=== PATIENT | male | born 1955 | race Caucasian/White ===

== ENCOUNTER 2017-09-16 12:45 | Emergency (ER) | payer BC, OTHER ==
[2017-09-16] MEDS ORDERED: IBUPROFEN 800 MG TAB PO STA (13:01)
--- NOTE | 2017-09-16 13:27 | XR ---
EXAMINATION TYPE: XR shoulder complete LT DATE OF EXAM: 09/16/2017 CLINICAL HISTORY: pain COMPARISON: NONE TECHNIQUE: Three views of the left shoulder are obtained. FINDINGS: There is no acute fracture/dislocation evident. The acromioclavicular and glenohumeral rolanda int spaces appear moderately narrowed. The visualized ribs are intact and unremarkable. IMPRESSION: 1. There is no acute fracture or dislocation. ICD 10 NO FRACTURE, INITIAL EVALUATION
--- NOTE | 2017-09-16 13:31 | XR ---
EXAMINATION TYPE: XR lumbar spine 2 or 3V DATE OF EXAM: 09/16/2017 CLINICAL HISTORY: pain TECHNIQUE: Three views of the lumbar spine are submitted. COMPARISON: None. FINDINGS: There are 5 lumbar type vertebral bodies identified. The lumbar spine shows satisfactory alignment w ithout evidence of acute fracture or dislocation. Vertebral body heights are within normal limits. Degenerative disc space narrowing mild in degree. Facet joint arthropathy noted. The overlying soft tissue appears unremarkable. IMPRESSION: No acute fracture or dislocation is seen in the lumbar spine. ICD 10 NO FRACTURE, INITIAL EVALUATION
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
[2017-09-16 14:39] VITALS: BP 177/83; PULSE 66; RESP 18; TEMP 98
== END 2017-09-16 14:38 | disposition home or self-care (01) ==
LOC: EC 12:45
DX: S39.012A Strain of muscle, fascia and tendon of lower back, initial encounter (principal); S46.912A Strain of unspecified muscle, fascia and tendon at shoulder and upper arm level, left arm, initial encounter; J44.9 Chronic obstructive pulmonary disease, unspecified; E11.9 Type 2 diabetes mellitus without complications; E78.5 Hyperlipidemia, unspecified; I10 Essential (primary) hypertension; N42.9 Disorder of prostate, unspecified; F17.200 Nicotine dependence, unspecified, uncomplicated; Z79.82 Long term (current) use of aspirin; Z79.84 Long term (current) use of oral hypoglycemic drugs; Z79.899 Other long term (current) drug therapy; V43.52XA Car driver injured in collision with other type car in traffic accident, initial encounter; Y92.410 Unspecified street and highway as the place of occurrence of the external cause
CPT/HCPCS: 72100; 99283

== ENCOUNTER 2023-01-07 10:40 | Day surgery (SDC) | payer BC, MEDICARE, OTHER ==
[2023-01-05 11:36] VITALS: BMI 29.1
[~2023-01-07 10:40] MED LIST: LACTATED RINGERS 1,000 ML IV SCH
[2023-01-07 11:12] LABS: Glucose,Whole Blood 133 mg/dL (70-110)
[2023-01-07 11:28] VITALS: TEMP 97.8
[2023-01-07] MEDS ORDERED: LIDOCAINE 1% INJ 10MG/ML (20 ML MDV) ONE (11:57)
[2023-01-07] MEDS ORDERED: PROPOFOL 10 MG/ML 20 ML VIAL IV ONE (11:57)
[2023-01-07] MEDS ORDERED: SODIUM CHLORIDE 0.9% 500 ML 500 ML IV ONE ×2 (12:05)
--- NOTE | 2023-01-07 12:15 | P.PCN ---
Date of Procedure: 01/07/23 Procedure(s) Performed: BRIEF HISTORY: Patient is a 67-year-old pleasant white male scheduled for an elective colonoscopy as a part of screening for colon cancer/positive cologuard PROCEDURE PERFORMED: Colonoscopy with biopsy and snare polypectomy. PREOPERATIVE DIAGNOSIS: screening for colon cancer/positive cologuard. IV sedation per Anesthesia. PROCEDURE: After informed consent was obtained, the patient, was brought into the endoscopy unit. IV sedation was administered by Anesthesia under continuous monitoring. Digital rectal examination was normal. Initially the Olympus CF-160 flexible video colonoscope was then inserted in the rectum, gradually advanced into the cecum without any difficulty. Careful examination was performed as the scope was gradually being withdrawn. Ileocecal valve and the appendiceal orifice were visualized and appeared normal. Prep was excellent. Mucosa of the cecum, ascending colon, transverse colon, appeared normal. The descending colon there was a 3 mm polyp that was removed by cold biopsy. In the sigmoid: There was a 1 cm polyp that was removed by snare polypectomy. Rest of the descending colon, sigmoid colon, and rectum appeared normal. Retroflexion was performed in the rectum and no lesions were seen. The patient tolerated the procedure well. IMPRESSION: 3 mm descending colon polyp status post-cold biopsy 1 cm; sigmoid polyp status post polypectomy RECOMMENDATIONS: Findings of this examination were discussed with the patient as his family. He was advised to follow with the biopsy results. If the biopsy reveals adenoma he can have a repeat colonoscopy in 3 years.
[2023-01-07 12:37] VITALS: RESP 16
[2023-01-07 12:38] VITALS: BP 155/75; PULSE 71
== END 2023-01-07 13:05 | disposition home or self-care (01) ==
LOC: ORWHC2ENDO 10:40
PROVIDERS: ATTEND Internal Medicine Gastroenterology
DX: Z12.11 Encounter for screening for malignant neoplasm of colon (principal); D12.4 Benign neoplasm of descending colon; I10 Essential (primary) hypertension; E78.5 Hyperlipidemia, unspecified; J45.909 Unspecified asthma, uncomplicated; F41.9 Anxiety disorder, unspecified; F32.A Depression, unspecified; F17.210 Nicotine dependence, cigarettes, uncomplicated; Z79.83 Long term (current) use of bisphosphonates; Z98.890 Other specified postprocedural states; Z79.899 Other long term (current) drug therapy
CPT/HCPCS: 45380; 45385; J2001; J2704; 88305

== ENCOUNTER 2023-09-28 16:29 | Inpatient (IN) | payer MEDICARE ==
--- NOTE | 2023-09-28 17:21 | ED ---
Weakness HPI - General Chief complaint: Weakness Stated complaint: weakness/shaking Time Seen by Provider: 09/28/23 17:19 Source: patient, RN notes reviewed Mode of arrival: wheelchair Limitations: no limitations - History of Present Illness Initial comments: 68-year-old male with history of COPD, type 2 diabetes mellitus, hyperlipidemia, and hypertension presenting to the ER with chief complaint of cough x 2 months. States over the past couple months he has had a constant, productive cough that has been worsening. States he becomes short of breath with minimal exertion lately. He also admits a 20 pound weight loss in the past 2 months. He has been to his PCP several times where they have taken chest x-rays and given him antibiotics for pneumonia, however patient states symptoms have not improved. He is a previous tobacco smoker, states he quit 1 month ago. Denies chest pain, fever, chills. - Related Data Home Medications Medication Instructions Recorded Confirmed Albuterol Sulfate [Proair Hfa] 2 puff INHALATION RT-Q4H PRN 08/04/14 09/28/23 Aspirin 81 mg PO DAILY 08/04/14 09/28/23 Doxazosin Mesylate [Cardura] 4 mg PO DAILY 08/04/14 09/28/23 Enalapril [Vasotec] 20 mg PO DAILY 08/04/14 09/28/23 Fenofibrate 160 mg PO DAILY 08/04/14 09/28/23 Finasteride [Proscar] 5 mg PO DAILY 08/04/14 09/28/23 Multivitamin [Men's Multi-Vitamin] 1 tab PO DAILY 08/04/14 09/28/23 metFORMIN HCL ER [Glucophage XR] 1,000 mg PO BID 08/04/14 09/28/23 buPROPion HCL [Wellbutrin XL] 300 mg PO DAILY 05/10/15 09/28/23 L.acidoph,Paracasei, B.lactis 1 cap PO DAILY 01/05/23 09/28/23 [Probiotic] amLODIPine [Norvasc] 5 mg PO DAILY 01/05/23 09/28/23 Dulaglutide [Trulicity] 1.5 mg SQ WE 09/28/23 09/28/23 Simvastatin [Zocor] 20 mg PO HS 09/28/23 09/28/23 glipiZIDE [glipiZIDE ER] 10 mg PO DAILY 09/28/23 09/28/23 traZODone HCL [Desyrel] 50 mg PO HS 09/28/23 09/28/23 Allergies Allergy/AdvReac Type Severity Reaction Status Date / Time No Known Allergies Allergy Verified 09/28/23 18:38 Review of Systems ROS Statement: Those systems with pertinent positive or pertinent negative responses have been documented in the HPI. ROS Other: All systems not noted in ROS Statement are negative. Past Medical History Past Medical History: Asthma, COPD, Diabetes Mellitus, GERD/Reflux, Hyperlipidemia, Hypertension, Prostate Disorder Additional Past Medical History / Comment(s): arthritis, History of Any Multi-Drug Resistant Organisms: None Reported Past Surgical History: Hernia Repair Past Anesthesia/Blood Transfusion Reactions: No Reported Reaction Additional Past Anesthesia/Blood Transfusion Reaction / Comment(s): no blood transfusion Past Psychological History: Anxiety, Depression Smoking Status: Former smoker Past Alcohol Use History: None Reported Past Drug Use History: Marijuana - Past Family History Mother Family Medical History: No Reported History General Exam Limitations: no limitations General appearance: alert, in no apparent distress Head exam: Present: atraumatic, normocephalic, normal inspection Eye exam: Present: normal appearance, PERRL, EOMI. Absent: scleral icterus, conjunctival injection, periorbital swelling ENT exam: Present: normal exam, mucous membranes moist Neck exam: Present: normal inspection. Absent: tenderness, meningismus, lymphadenopathy Respiratory exam: Present: wheezes (Wheezing in all lung raman bilaterally). Absent: normal lung sounds bilaterally, respiratory distress, rales, rhonchi, stridor, chest wall tenderness, accessory muscle use Cardiovascular Exam: Present: regular rate, normal rhythm, normal heart sounds. Absent: systolic murmur, diastolic murmur, rubs, gallop, clicks GI/Abdominal exam: Present: soft, normal bowel sounds. Absent: distended, tenderness, guarding, rebound, rigid Extremities exam: Present: normal inspection Back exam: Present: normal inspection Neurological exam: Present: alert, oriented X3, CN II-XII intact Psychiatric exam: Present: normal affect, normal mood Skin exam: Present: warm, dry, intact, normal color. Absent: rash Course Vital Signs 09/28/23 09/28/23 09/28/23 16:31 18:33 20:03 Temperature 97.1 F L Pulse Rate 96 80 80 Respiratory 18 16 18 Rate Blood Pressure 105/59 131/65 149/75 O2 Sat by Pulse 96 98 95 Oximetry 09/28/23 21:40 Temperature 97.7 F Pulse Rate 78 Respiratory 18 Rate Blood Pressure 138/76 O2 Sat by Pulse 94 L Oximetry EKG Findings - EKG Results: EKG: interpreted by ABDON (EKG reveals sinus arrhythmia with right bundle branch block, ventricular rate 80 bpm, GA 159, QRS 140, QT/QTc 414/450) Medical Decision Making - Medical Decision Making Was pt. sent in by a medical professional or institution (, PA, CUT OUT MARKER, urgent care, hospital, or [facility]...) When possible be specific @ -No Did you speak to anyone other than the patient for history (EMS, parent, family, police, friend...)? What history was obtained from this source @ -Patient's son supplemented history Did you review nursing and triage notes (agree or disagree)? Why? @ -I reviewed and agree with nursing and triage notes Were old charts reviewed (outside hosp., previous admission, EMS record, old EKG, old radiological studies, urgent care reports/EKG's, [facility] records)? Report findings @ -No old charts were reviewed Differential Diagnosis (chest pain, altered mental status, abdominal pain women, abdominal pain men, vaginal bleeding, weakness, fever, dyspnea, syncope, headache, dizziness, GI bleed, back pain, seizure, CVA, palpatations, mental health, musculoskeletal)? @ -Differential Weakness: Pneumonia, lung cancer, hypoglycemia, shock, sepsis, hyponatremia, anemia, infection, AL, ETOH, adverse medicine reaction, overdose, stroke, this is not meant to be an all-inclusive list. EKG interpreted by me (3pts min.). @ -As above X-rays interpreted by me (1pt min.). @ -Chest x-ray reveals right midlung consolidation, possibly representing underlying mass CT interpreted by me (1pt min.). @ -None done U/S interpreted by me (1pt. min.). @ -None done What testing was considered but not performed or refused? (CT, X-rays, U/S, labs)? Why? @ -None What meds were considered but not given or refused? Why? @ -None Did you discuss the management of the patient with other professionals (professionals i.e. , PA, CUT OUT MARKER, lab, RT, psych nurse, social media strategist, field crop farm worker, teacher, deputy probation officer, caseworker protective services)? Give summary @ -I spoke with Dr. Tenorio who accepts admission at this time for increasing shortness of breath with possible underlying lung mass with consultation to pulmonology services Was smoking cessation discussed for >3mins.? @ -No Was critical care preformed (if so, how long)? @ -No Were there social determinants of health that impacted care today? How? (Homelessness, low income, unemployed, alcoholism, drug addiction, transportation, low edu. Level, literacy, decrease access to med. care, [facility], rehab)? @ -No Was there de-escalation of care discussed even if they declined (Discuss DNR or withdrawal of care, Hospice)? DNR status @ -No What co-morbidities impacted this encounter? (DM, HTN, Smoking, COPD, CAD, Cancer, CVA, ARF, Chemo, Hep., AIDS, mental health diagnosis, sleep apnea, morbid obesity)? @ -None Was patient admitted / discharged? Hospital course, mention meds given and route, prescriptions, significant lab abnormalities, going to OR and other per tinent info. @ -Patient was admitted. Patient was seen and evaluated for worsening cough x 2 months with associated shortness of breath and weight loss. Patient is a former tobacco smoker. Vital signs are unremarkable, physical examination is remarkable for diffuse wheezing in all lung raman bilaterally. Lab work including CBC, CMP, troponin, and coags remarkable for INR 1.3, alkaline phospha te 407, mildly elevated liver enzymes, and bilirubin 2.9. Chest x-ray reveals right midlung consolidation possibly representing underlying mass. EKG reveals sinus arrhythmia with right bundle branch block. Discussed diagnosis of right midlung consolidation with patient. I spoke with Dr. Tenorio who accepts admission at this time for increasing shortness of breath with possible underlying lung mass with consultation to pulmonology services. Patient is agreeable to plan. Case was discussed with my ED attending Dr. Dowling. Patient discharged in stable condition. Undiagnosed new problem with uncertain prognosis? @ -No Drug Therapy requiring intensive monitoring for toxicity (Heparin, Nitro, Insulin, Cardizem)? @ -No Were any procedures done? @ -No Diagnosis/symptom? @ -Right lung consolidation, shortness of breath Acute, or Chronic, or Acute on Chronic? @ -Acute Uncomplicated (without systemic symptoms) or Complicated (systemic symptoms)? @ -Complicated Side effects of treatment? @ -No Exacerbation, Progression, or Severe Exacerbation? @ -No Poses a threat to life or bodily function? How? (Chest pain, USA, AL, pneumonia, PE, COPD, DKA, ARF, appy, cholecystitis, CVA, Diverticulitis, Homicidal, Suicidal, threat to staff... and all critical care pts) @ -Yes - Lab Data Result diagrams: 09/28/23 17:24 09/28/23 17: Lab Results 09/28/23 09/28/23 09/28/23 Range/Units 17:24 17:24 17:24 WBC 9.0 (3.8-10.6) k/uL RBC 4.25 L (4.30-5.90) m/uL Hgb 12.4 L (13.0-17.5) gm/dL Hct 37.9 L (39.0-53.0) % MCV 89.1 (80.0-100.0) fL MCH 29.2 (25.0-35.0) pg MCHC 32.7 (31.0-37.0) g/dL RDW 16.0 H (11.5-15.5) % Plt Count 287 (150-450) k/uL MPV 8.0 Neutrophils % 76 % Lymphocytes % 13 % Monocytes % 7 % Eosinophils % 1 % Basophils % 0 % Neutrophils # 6.9 (1.3-7.7) k/uL Lymphocytes # 1.2 (1.0-4.8) k/uL Monocytes # 0.6 (0-1.0) k/uL Eosinophils # 0.1 (0-0.7) k/uL Basophils # 0.0 (0-0.2) k/uL Hypochromasia Slight PT 13.7 H (10.0-12.5) sec INR 1.3 H (<1.2) APTT 23.2 (22.0-30.0) sec Sodium 136 L (137-145) mmol/L Potassium 4.3 (3.5-5.1) mmol/L Chloride 105 (98-107) mmol/L Carbon Dioxide 23 (22-30) mmol/L Anion Gap 8 mmol/L BUN 19 (9-20) mg/dL Creatinine 0.83 (0.66-1.25) mg/dL Est GFR (CKD-EPI)AfAm >90 (>60 ml/min/1.73 sqM) Est GFR (CKD-EPI)NonAf >90 (>60 ml/min/1.73 sqM) Glucose 137 H (74-99) mg/dL Calcium 9.1 (8.4-10.2) mg/dL Total Bilirubin 2.9 H (0.2-1.3) mg/dL AST 97 H (17-59) U/L ALT 81 H (4-49) U/L Alkaline Phosphatase 407 H (38-126) U/L Troponin I (0.000-0.034) ng/mL Total Protein 6.2 L (6.3-8.2) g/dL Albumin 3.3 L (3.5-5.0) g/dL 09/27/ Range/Units 17:24 WBC (3.8-10.6) k/uL RBC (4.30-5.90) m/uL Hgb (13.0-17.5) gm/dL Hct (39.0-53.0) % MCV (80.0-100.0) fL MCH (25.0-35.0) pg MCHC (31.0-37.0) g/dL RDW (11.5-15.5) % Plt Count (150-450) k/uL MPV Neutrophils % % Lymphocytes % % Monocytes % % Eosinophils % % Basophils % % Neutrophils # (1.3-7.7) k/uL Lymphocytes # (1.0-4.8) k/uL Monocytes # (0-1.0) k/uL Eosinophils # (0-0.7) k/uL Basophils # (0-0.2) k/uL Hypochromasia PT (10.0-12.5) sec INR (<1.2) APTT (22.0-30.0) sec Sodium (137-145) mmol/L Potassium (3.5-5.1) mmol/L Chloride (98-107) mmol/L Carbon Dioxide (22-30) mmol/L Anion Gap mmol/L BUN (9-20) mg/dL Creatinine (0.66-1.25) mg/dL Est GFR (CKD-EPI)AfAm (>60 ml/min/1.73 sqM) Est GFR (CKD-EPI)NonAf (>60 ml/min/1.73 sqM) Glucose (74-99) mg/dL Calcium (8.4-10.2) mg/dL Total Bilirubin (0.2-1.3) mg/dL AST (17-59) U/L ALT (4-49) U/L Alkaline Phosphatase (38-126) U/L Troponin I <0.012 (0.000-0.034) ng/mL Total Protein (6.3-8.2) g/dL Albumin (3.5-5.0) g/dL Disposition Clinical Impression: Lung consolidation, Shortness of breath Disposition: ADMITTED IP TO THIS [facility] Time of Disposition: 20:56
[2023-09-28 17:35] LABS: Basophils % (A) 0 %; Eosinophils # (A) 0.1 k/uL (0-0.7); Eosinophils % (A) 1 %; HCT 37.9 % (39.0-53.0); HGB 12.4 gm/dL (13.0-17.5); Hypochromasia Slight; Lymphocytes # (A) 1.2 k/uL (1.0-4.8); Lymphocytes % (A) 13 %; MCH 29.2 pg (25.0-35.0); MCHC 32.7 g/dL (31.0-37.0); MCV 89.1 fL (80.0-100.0); Monocytes # (A) 0.6 k/uL (0-1.0); Monocytes % (A) 7 %; Neutrophils # (A) 6.9 k/uL (1.3-7.7); Neutrophils % (A) 76 %; Platelet Count 287 k/uL (150-450); RBC 4.25 m/uL (4.30-5.90)
[2023-09-28 17:51] LABS: ALT 81 U/L (4-49); AST 97 U/L (17-59); African American GFR (CKD) >90 (>60 ml/min/1.73 sqM); Albumin 3.3 g/dL (3.5-5.0); Alkaline Phosphatase 407 U/L (38-126); Anion Gap 8 mmol/L; Blood Urea Nitrogen 19 mg/dL (9-20); Calcium 9.1 mg/dL (8.4-10.2); Carbon Dioxide 23 mmol/L (22-30); Chloride 105 mmol/L (98-107); Glucose 137 mg/dL (74-99); Non-African American GFR(CKD) >90 (>60 ml/min/1.73 sqM); Potassium 4.3 mmol/L (3.5-5.1); Sodium 136 mmol/L (137-145); Total Bilirubin 2.9 mg/dL (0.2-1.3); Total Protein 6.2 g/dL (6.3-8.2)
[2023-09-28 18:16] LABS: INR 1.3 (<1.2); Partial Thromboplastin Time 23.2 sec (22.0-30.0); Prothrombin Time 13.7 sec (10.0-12.5)
--- NOTE | 2023-09-28 19:51 | XR ---
EXAMINATION TYPE: XR chest 2V DATE OF EXAM: 09/28/2023 7:26 PM CLINICAL INDICATION:Male, 68 years old with history of cough/weight loss; COMPARISON: None TECHNIQUE: XR chest 2V Frontal view of the chest. FINDINGS: Lungs/Pleura: Right midlung masslike opacity near the right hilum. There is no evidence of pleural ef fusion, focal consolidation, or pneumothorax. Pulmonary vascularity: Unremarkable. Heart/mediastinum: Cardiomediastinal silhouette is unremarkable. Musculoskeletal: No acute osseous pathology. IMPRESSION: Right midlung consolidation possibly representing underlying mass given patient's history of weight l oss and cough. Further evaluation of cross-sectional imaging recommended.
[2023-09-28] MEDS ORDERED: NALOXONE 0.4 MG/ML 1 ML VIAL IV PRN (20:53)
--- NOTE | 2023-09-28 23:03 | P.HPIM ---
History of Present Illness H&P Date: 09/28/23 Chief Complaint: SOB, WEAKNESS, COUGH Patient is a 68-year-old male with a of NIDDM, hypertension, hyperlipidemia and COPD not on home oxygen presents to the ER with progressively worsening shortness of breath since 8 weeks. Patient states that his shortness of breath is worse with physical activity such as walking and better with rest. Earlier he could just walk without having to sit down or rest but now he can only walk 8 steps before he feels the need to catch his breath. He also endorses progressively worsening cough which is productive and nonbloody with 1 cupful of sputum since 8 weeks. Patient states coughing is constant throughout the day and night and he is unable to sleep properly for the last 8 weeks. He has lost 20 pounds over 6 weeks and his appetite has been poor. He also endorses generalized weakness and tiredness with night sweats but denies any fever, chills and no recent sick contacts. Patient denies any recent hospitalization or travel. Patient states that he has been following up with his PCP for his ongoing symptoms from the past 2 months and has been undergoing outpatient treatment with multiple rounds of antibiotic, steroids and inhalers for his ongoing symptoms without any significant improvement. He otherwise denies headaches, chest pain, abdominal pain, diarrhea constipation, numbness or tingling in upper and lower extremities. EKG done in the ER shows sinus rhythm with heart rate of 80 bpm. NM interval 159 ms. QTc 450 ms, prolonged. Right bundle branch block noted in precordial leads. Chest x-ray shows right midlung consolidation possibly representing underlying mass. Vitals: Tmax 97.1 F heart rate 78, respirate 18, BP 138/76, oxygen saturation 94% on room air. Review of systems: Pertinent positives and negatives as discussed in HPI, a complete review of systems was performed and all other systems are negative. Social history: Tobacco: Quit 1 month ago; half pack per day x 40 years Alcohol: Social Recreational drugs: None Travel: None Occupation: Retired Family History: Noncontributory Physical examination: Vital signs reviewed General: non toxic, no distress, appears at stated age, normal weight Derm: no unusual rashes/lesions, warm Head: atraumatic, normocephalic, symmetric Eyes: EOMI, no lid lag, anicteric sclera, pupils equal round reactive to light Neck: No cervical lymphadenopathy, trachea midline, supple Mouth: no lip lesion, mucus membranes moist Cardiovascular: S1S2 reg, no murmur, positive dorsalis pedis pulse bilateral, no edema Lungs: Bilateral expiratory rhonchi with diffuse wheezing, no rales, no accessory muscle use Abdominal: soft, nontender to palpation, no guarding Ext: muscle strength 5 out of 5 in all 4 extremities grossly, no gross muscle atrophy, no contractures, Neuro: CN II-XI grossly intact, no gross focal neuro deficits Psych: Alert, oriented, appropriate affect Assessment/Plan: 68-year-old male with COPD not on home oxygen quit smoking 1 month ago , presents to the ER with progressively worsening shortness of breath associated with productive cough and unintentional weight loss since 2 months. #Acute on chronic bronchitis with failed outpatient therapy Started on DuoNebs [id number] and as needed Resume albuterol inhaler 2 puffs RT every 4 hours Ordered oxygen therapy with 2 L via nasal cannula prednisone PO 40 mg daily patient received multiple courses of oral steroids and antibiotics as OP over the past 8 weeks, will hold off antibiotics for now #Right midlung mass, benign versus malignant mass Chest x-ray shows right midlung consolidation possibly representing underlying mass Consult pulmonology #Normocytic anemia Hemoglobin 12.4 (baseline), hematocrit 37.9, MCV 89.1 Continue monitor hemoglobin level denies bleeding #Coagulopathy Elevated PT 13.7, Elevated INR 1.3, aPTT 23.2 No active bleeding air sampling and monitoring PT/INR #Hyponatremia Sodium 136, potassium 4.3, chloride 105, bicarb 23 Ordered normal saline IV at 50 cc/h Continue monitor sodium levels with an incidental finding of lung mass, there is some suspicion of SIADH, monitor Na level closely if it worsens while on normal saline #Evy-ppifxab-iuwqghhxh diabetes mellitus Start on sliding scale short acting insulin Check HbA1c #Elevated LFTs, suspected secondary to underlying malignancy and mets Total bilirubin 2.9, AST 97, ALT 81, alkaline phos 407, total protein 6.2, albumin 3.3 Continue monitor CMP DVT prophylaxis: Lovenox 40 mg subcu daily The patient is admitted with an anticipated greater than 2 midnight stay for evaluation of suspicious lung mass CODE STATUS: Full code Discussed with: Patient Anticipated discharge place: Home Past Medical History Past Medical History: Asthma, COPD, Diabetes Mellitus, GERD/Reflux, Hyperlipidemia, Hypertension, Prostate Disorder Additional Past Medical History / Comment(s): arthritis, History of Any Multi-Drug Resistant Organisms: None Reported Past Surgical History: Hernia Repair Past Anesthesia/Blood Transfusion Reactions: No Reported Reaction Additional Past Anesthesia/Blood Transfusion Reaction / Comment(s): no blood transfusion Past Psychological History: Anxiety, Depression Smoking Status: Former smoker Past Alcohol Use History: None Reported Past Drug Use History: Marijuana - Past Family History Mother Family Medical History: No Reported History Medications and Allergies Home Medications Medication Instructions Recorded Confirmed Type Albuterol Sulfate [Proair Hfa] 2 puff INHALATION RT-Q4H PRN 08/04/14 09/28/23 History Aspirin 81 mg PO DAILY 08/04/14 09/28/23 History Doxazosin Mesylate [Cardura] 4 mg PO DAILY 08/04/14 09/28/23 History Enalapril [Vasotec] 20 mg PO DAILY 08/04/14 09/28/23 History Fenofibrate 160 mg PO DAILY 08/04/14 09/28/23 History Finasteride [Proscar] 5 mg PO DAILY 08/04/14 09/28/23 History Multivitamin [Men's Multi-Vitamin] 1 tab PO DAILY 08/04/14 09/28/23 History metFORMIN HCL ER [Glucophage XR] 1,000 mg PO BID 08/04/14 09/28/23 History buPROPion HCL [Wellbutrin XL] 300 mg PO DAILY 05/10/15 09/28/23 History L.acidoph,Paracasei, B.lactis 1 cap PO DAILY 01/05/23 09/28/23 History [Probiotic] amLODIPine [Norvasc] 5 mg PO DAILY 01/05/23 09/28/23 History Dulaglutide [Trulicity] 1.5 mg SQ WE 09/28/23 09/28/23 History Simvastatin [Zocor] 20 mg PO HS 09/28/23 09/28/23 History glipiZIDE [glipiZIDE ER] 10 mg PO DAILY 09/28/23 09/28/23 History traZODone HCL [Desyrel] 50 mg PO HS 09/28/23 09/28/23 History Allergies Allergy/AdvReac Type Severity Reaction Status Date / Time No Known Allergies Allergy Verified 09/28/23 18:38 Physical Exam Vitals: Vital Signs Temp Pulse Resp BP Pulse Ox 09/28/23 21:40 97.7 F 78 18 138/76 94 L 09/28/23 20:03 80 18 149/75 95 09/28/23 18:33 80 16 131/65 98 09/28/23 16:31 97.1 F L 96 18 105/59 96 Intake and Output 09/28/23 09/28/23 09/28/23 06:59 14:59 22:59 Other: Weight 74.389 kg Results CBC & Chem 7: 09/28/23 17:24 09/28/23 17:24 Labs: Abnormal Lab Results - Last 24 Hours (Table) 09/28/23 09/28/23 09/28/23 Range/Units 17:24 17:24 17:24 RBC 4.25 L (4.30-5.90) m/uL Hgb 12.4 L (13.0-17.5) gm/dL Hct 37.9 L (39.0-53.0) % RDW 16.0 H (11.5-15.5) % PT 13.7 H (10.0-12.5) sec INR 1.3 H (<1.2) Sodium 136 L (137-145) mmol/L Glucose 137 H (74-99) mg/dL Total Bilirubin 2.9 H (0.2-1.3) mg/dL AST 97 H (17-59) U/L ALT 81 H (4-49) U/L Alkaline Phosphatase 407 H (38-126) U/L Total Protein 6.2 L (6.3-8.2) g/dL Albumin 3.3 L (3.5-5.0) g/dL Assessment and Plan Assessment: I have seen and evaluated the patient today. I Discussed the case with the resident and agree with the resident's findings I edited the assessment and plan as necessary as documented in the resident's note.
[2023-09-28] MEDS ORDERED: DEXTROSE 50% SYRINGE 50 ML IVP PRN (23:07)
[2023-09-28] MEDS: SODIUM CHLORIDE 0.9% 1,000 ML IV SCH (23:27)
[2023-09-28] MEDS: ENOXAPARIN 40 MG/0.4 ML SYRINGE SQ STA (23:28)
[2023-09-28] MEDS: IPRATROPIUM-ALBUTEROL 3 ML NEB INHALATION PRN (23:37)
[2023-09-29] MEDS ORDERED: RX INFO: IV CONTRAST WAS GIVEN 1 EACH MISC MISCELLANE PRN (00:29)
[2023-09-29] MEDS: traZODone HCL 50 MG TAB PO SCH (01:14)
--- NOTE | 2023-09-29 02:02 | CT ---
EXAM: CT Chest With Intravenous Contrast CLINICAL HISTORY: ITS.REASON CT Reason: SOB cough TECHNIQUE: Axial computed tomography images of the chest with intravenous contrast. CTDI is 7.5 mGy and DLP is 409.4 mGy-cm. This CT exam was performed using one or more of the following dose reduction techniques: automated exposure control, adjustment of the mA and/or kV according to patient size, and/or use of iterative reconstruction technique. COMPARISON: No relevant prior studies available. FINDINGS: Lungs: Right upper lobe consolidation and volume loss. Interstitial thickening throughout the right lung. Bronchial mucosal thickening on the right. The left lung is clear. Pleural space: Moderate right pleural effusion. Heart: Unremarkable. Bones/joints: No acute findings. Soft tissues: Unremarkable. Vasculature: Unremarkable. Lymph nodes: Unremarkable. Intraperitoneal space: Small volume ascites in the upper abdomen. IMPRESSION: 1. Right upper lobe consolidation with volume loss and interstitial edema in the right lung. Some of the consolidation may represent pneumonia. A component of malignancy is not excluded. 2. Moderate right pleural effusion.
--- NOTE | 2023-09-29 02:12 | P.CNPUL ---
History of Present Illness Consult date: 09/29/23 Requesting physician: Laya Matthew Reason for consult: lung mass Chief complaint: Persistent cough x 2 months History of present illness: Patient is a 68-year-old white male with past medical history significant for hypertension, hyperlipidemia, diabetes, chronic obstructive pulmonary disease, former tobacco dependence. Primary care provider is Dr. Castelan. Patient's chief complaint is a persistent cough for the last 2 months. He has been seen by multiple urgent care clinics, treated with courses of antibiotics and steroids without any significant improvement in his symptoms. He did go to his primary care provider yesterday, who directed him to the emergency department. He is complaining of a persistent cough over the last 2 months. Previously productive with yellow sputum, now non-productive. No hemoptysis. The cough has interfered with his sleeping. He is also been short of breath with minimal exertion. His rescue inhaler has not been providing much relief. He has been g enerally weak. Denies fevers. Denies sick contacts. He does have history of COPD. He has history of heavy tobacco dependence, quitting approximately 1 month ago. Reports [id number]-abkg-aeoa smoking history. He has had also poor appetite. Endorses 20 pound weight loss over 2-month timeframe. Denies any history of cancer. Chest x-ray done arrival shows a suspicious right perihilar masslike opacity and volume loss. CBC unremarkable without leukocytosis. CMP: Sodium 136, potassium 4.3, chloride 105, serum bicarb 23, BUN 19, creatinine 0.83, glucose 137. Normal saline infusing at 50 MLS per hour. LFTs are mildly elevated. AST 97, ALT 81, ALP 407. Total bilirubin 2.9. Troponin less than 0.012. Patient is currently resting comfortably on room air. He continues to have persistent cough, which is currently nonproductive. Afebrile. Vital signs are stable. Patient will be taken down for CT of the chest tonight. Review of Systems REVIEW OF SYSTEMS: CONSTITUTIONAL: Admits 20 pound weight loss over the last 2 months. EYES: Denies change in vision. EARS, NOSE, MOUTH, THROAT: Denies headaches, denies sore throat. CARDIOVASCULAR: Denies chest pain, palpitations or syncopal episodes. RESPIRATORY: See HPI GASTROINTESTINAL: Denies abdominal pain, nausea and vomiting, or diarrhea. Admits reduced appetite GENITOURINARY: Denies hematuria, denies infections. MUSKULOSKELETAL: Denies pain, denies swelling. INTEGUMENTARY: Denies rash, denies eczema. NEUROLOGICAL: Denies recent memory loss, no recent seizure activity. PSYCHIATRIC: Denies anxiety, denies depression. HEMATOLOGIC/LYMPHATIC: Denies anemia, denies enlarged lymph node Past Medical History Past Medical History: Asthma, COPD, Diabetes Mellitus, GERD/Reflux, Hyperlipidemia, Hypertension, Prostate Disorder Additional Past Medical History / Comment(s): arthritis, History of Any Multi-Drug Resistant Organisms: None Reported Past Surgical History: Hernia Repair Past Anesthesia/Blood Transfusion Reactions: No Reported Reaction Additional Past Anesthesia/Blood Transfusion Reaction / Comment(s): no blood transfusion Past Psychological History: Anxiety, Depression Smoking Status: Former smoker Past Alcohol Use History: None Reported Past Drug Use History: Marijuana - Past Family History Mother Family Medical History: No Reported History Medications and Allergies Home Medications Medication Instructions Recorded Confirmed Type Albuterol Sulfate [Proair Hfa] 2 puff INHALATION RT-Q4H PRN 08/04/14 09/28/23 History Aspirin 81 mg PO DAILY 08/04/14 09/28/23 History Doxazosin Mesylate [Cardura] 4 mg PO DAILY 08/04/14 09/28/23 History Enalapril [Vasotec] 20 mg PO DAILY 08/04/14 09/28/23 History Fenofibrate 160 mg PO DAILY 08/04/14 09/28/23 History Finasteride [Proscar] 5 mg PO DAILY 08/04/14 09/28/23 History Multivitamin [Men's Multi-Vitamin] 1 tab PO DAILY 08/04/14 09/28/23 History metFORMIN HCL ER [Glucophage XR] 1,000 mg PO BID 08/04/14 09/28/23 History buPROPion HCL [Wellbutrin XL] 300 mg PO DAILY 05/10/15 09/28/23 History L.acidoph,Paracasei, B.lactis 1 cap PO DAILY 01/05/23 09/28/23 History [Probiotic] amLODIPine [Norvasc] 5 mg PO DAILY 01/05/23 09/28/23 History Dulaglutide [Trulicity] 1.5 mg SQ WE 09/28/23 09/28/23 History Simvastatin [Zocor] 20 mg PO HS 09/28/23 09/28/23 History glipiZIDE [glipiZIDE ER] 10 mg PO DAILY 09/28/23 09/28/23 History traZODone HCL [Desyrel] 50 mg PO HS 09/28/23 09/28/23 History Allergies Allergy/AdvReac Type Severity Reaction Status Date / Time No Known Allergies Allergy Verified 09/28/23 18:38 Physical Exam Vitals: Vital Signs Temp Pulse Pulse Resp BP BP Pulse Ox 09/29/23 01:15 99.0 F 80 15 147/84 97 09/28/23 23:52 80 09/28/23 23:37 76 09/28/23 23:16 98.6 F 76 15 121/69 96 09/28/23 21:40 97.7 F 78 18 138/76 94 L 09/28/23 20:03 80 18 149/75 95 09/28/23 18:33 80 16 131/65 98 09/28/23 16:31 97.1 F L 96 18 105/59 96 Intake and Output 09/28/23 09/28/23 09/29/23 14:59 22:59 06:59 Other: # Voids 1 Weight 74.389 kg GENERAL EXAM: Alert, 68-year-old white male, well-nourished, comfortable in no apparent distress. HEAD: Normocephalic and atraumatic EYES: Normal reaction of pupils, equal size. NOSE: Clear with pink turbinates. THROAT: No erythema or exudates. NECK: No palpable lymphadenopathy, no masses, no JVD. CHEST: No chest wall deformity. LUNGS: Equal air entry with no crackles, wheeze, rhonchi or dullness. On room air. No conversational dyspnea or accessory muscle use.. CVS: S1 and S2 normal with no audible murmur, regular rhythm. No extra heart sounds ABDOMEN: No hepatosplenomegaly, active bowel sounds, no guarding or rigidity. SPINE: No scoliosis or deformity SKIN: No rashes CENTRAL NERVOUS SYSTEM: No focal deficits, tone is normal in all 4 extremities. EXTREMITIES: There is no peripheral edema, clubbing, or cyanosis. Peripheral pulses are intact. Results - Laboratory Findings CBC and BMP: 09/28/23 17:24 09/28/23 17:24 PT/INR, D-dimer PT 13.7 sec (10.0-12.5) H 09/28/23 17:24 INR 1.3 (<1.2) H 09/28/23 17:24 Abnormal lab findings: Abnormal Labs 09/28/23 09/28/23 09/28/23 17:24 17:24 17:24 RBC 4.25 L Hgb 12.4 L Hct 37.9 L RDW 16.0 H PT 13.7 H INR 1.3 H Sodium 136 L Glucose 137 H Total Bilirubin 2.9 H AST 97 H ALT 81 H Alkaline Phosphatase 407 H Total Protein 6.2 L Albumin 3.3 L - Diagnostic Findings Chest x-ray: image reviewed Assessment and Plan Assessment: Right perihilar masslike consolidation Subacute cough, refractory to multiple outpatient treatments of antibiotics and steroids Acute dyspnea Unintentional 20 pound weight loss, over 2-month timeframe Chronic obstructive pulmonary disease Former tobacco dependence, quitting approximately 1 month ago, with [id number] history Elevated liver enzymes, unknown significance, ultrasound of liver pending Hypertension History of hyperlipidemia Diabetes mellitus type 2 Plan: Patient's medication, labs, chest x-ray reviewed On room air Chest x-ray showing a right perihilar masslike consolidation and volume loss. When taking in account patient's presentation, suspicious for malignancy, and additional workup is needed Patient will go down for CT of chest with contrast tonight We will continue to follow, and additional recommendations are forthcoming I have personally seen and examined the patient, performed the documentation and the assessment and plan as written. Number of minutes spent on the visit:20 Time with Patient: Greater than 30
[2023-09-29] MEDS: AZITHROMYCIN 500 MG in SODIUM CHLORIDE 0.9% 250 ML IVPB STA (03:24)
[2023-09-29 06:18] LABS: Glucose,Whole Blood 57 mg/dL (70-110)
[2023-09-29] MEDS: INSULIN ASPART (NovoLOG) 100 UNIT/ML VIAL SQ SCH (06:28)
[2023-09-29] MEDS: PANTOPRAZOLE 40 MG TABLET PO SCH (06:29)
[2023-09-29 06:44] LABS: Glucose,Whole Blood 85 mg/dL (70-110)
--- NOTE | 2023-09-29 08:06 | US ---
EXAMINATION TYPE: US chest DATE OF EXAM: 09/29/2023 COMPARISON: None CLINICAL INDICATION: Male, 68 years old with history of right sided pleural effusion; TECHNIQUE: Targeted ultrasound of the posterior lower right hemithorax EXAM MEASUREMENTS: Right Pleural Effusion pocket size: 4.6 cm Right skin surface to fluid distance: 2.1 cm Right side marked for possible thoracentesis outside the dept. Pulmonologists are able to review the images in the patient?s EMR. IMPRESSIONS: Small right pleural effusion.
--- NOTE | 2023-09-29 08:08 | US ---
EXAMINATION TYPE: US liver DATE OF EXAM: 09/29/2023 COMPARISON: CLINICAL INDICATION: Male, 68 years old with history of transaminitis , lung mass; Portable inpatient exam. Pneumonia per patient. Patient coughed frequently during exam. TECHNIQUE: Multiple sonographic images of the right upper quadrant are obtained. FINDINGS: EXAM MEASUREMENTS: Liver Length: 16.9 cm Gallbladder Wall: 0.5 cm CBD: 0.5 cm Right Kidney: 12.5 x 5.4 x 5.5 cm Pancreas: Appears heterogenous. Head and tail obscured by overlying bowel gas. Liver: Heterogenous. Possible clot visualized in MPV and LPV. Gallbladder: Wall thickening with fluid seen adjacent to. Two mobile echogenic foci with largest = 1.3 cm Evidence for sonographic Samaniego's sign: neg CBD: wnl Right Kidney: Lateral inferior anechoic lesion = 0.7 x 0.7 x 0.7 cm IMPRESSION: 1. Liver is heterogeneous with findings suspicious for portal venous thrombosis. Underlying heterogen eity could be related to underlying hepatocellular disease. 2. Gallbladder wall is thickened with a small amount pericholecystic fluid and a gallstone correlate for cholecystitis. A Red level critical message alert has been initiated for Carrie Tenorio MD via the [employer] Critical Results System on 09/29/2023 8:05 AM. This message alert has been sent to Carrie Tenorio MD via the preferences provided by the clinician for the receipt of Radiology Critical Findings. Ar ssage ID [id number].
[2023-09-29] MEDS: predniSONE 20 MG TAB PO SCH (08:12)
[2023-09-29] MEDS: amLODIPine 5 MG TAB PO SCH (08:12)
[2023-09-29] MEDS: DOXAZOSIN 4 MG TAB PO SCH (08:12)
[2023-09-29] MEDS: ENOXAPARIN 40 MG/0.4 ML SYRINGE SQ SCH (08:12)
[2023-09-29] MEDS: lisinopriL 20 MG TAB PO SCH (08:12)
[2023-09-29] MEDS: FINASTERIDE 5 MG TAB PO SCH (08:12)
[2023-09-29] MEDS ORDERED: PIPERACILLIN-TAZOBACTAM 3.375 GM in SODIUM CHLORIDE 0.9% 100 ML IVPB SCH (08:30)
[2023-09-29 08:43] LABS: ALT 90 U/L (10-49); AST 93 U/L (14-35); Albumin 3.3 g/dL (3.8-4.9); Albumin/Globulin Ratio 1.22 Ratio (1.60-3.17); Alkaline Phosphatase 498 U/L (41-126); Calcium 8.6 mg/dL (8.7-10.3); Carbon Dioxide 21.6 mmol/L (21.6-31.8); Chloride 105 mmol/L (96-109); Globulin 2.7 g/dL (1.6-3.3); Glucose 55 mg/dL (70-110); Potassium 4.1 mmol/L (3.5-5.5); Sodium 139 mmol/L (135-145); Total Bilirubin 2.2 mg/dL (0.3-1.2)
[2023-09-29] MEDS ORDERED: AZITHROMYCIN 500 MG TAB PO SCH (09:00)
[2023-09-29] MEDS: IPRATROPIUM-ALBUTEROL 3 ML NEB INHALATION SCH (09:22)
--- NOTE | 2023-09-29 10:24 | P.GSCN ---
History of Present Illness Consult date: 09/29/23 Reason for Consult: Possible portal vein thrombosis Requesting physician: Mayte Finn History of present illness: This is a pleasant 68-year-old male with past medical history significant for hypertension, hyperlipidemia, diabetes, chronic obstructive pulmonary disease, and tobacco dependence. Patient had presented to the emergency department with complaints of persistent cough for the last 2 months, shortness of breath and weight loss of 20 pounds over the last 2 months duration. Patient was a half a pack a day smoker for the last 40 years states he quit about a month ago. LFTs were mildly elevated on admission with elevated bilirubin. Abdominal ultrasound was ordered that reported possible portal vein thrombosis. Vascular surgery was consulted for evaluation for portal vein thrombosis. Patient denies any abdominal pain, no nausea or vomiting. States he has had a decreased appetite over the last couple months causing a unintentional 20 pound weight loss. He denies any known liver disease, no history of alcohol dependence. Primary medical team ordered IV heparin drip, which currently has not been started. Patient also had a chest CT reporting right upper lobe consolidation with volume loss and interstitial edema in the right lung, moderate consolidation may represent pneumonia component of malignancy is not excluded. Moderate right pleural effusion. He is being followed by the pulmonology team who plan on bronchoscopy with BAL and biopsies tomorrow. Review of Systems A 14 point review systems was completed all pertinent positives and negatives as stated in the HPI. Past Medical History Past Medical History: Asthma, COPD, Diabetes Mellitus, GERD/Reflux, Hyperlipidemia, Hypertension, Prostate Disorder Additional Past Medical History / Comment(s): arthritis, History of Any Multi-Drug Resistant Organisms: None Reported Past Surgical History: Hernia Repair Past Anesthesia/Blood Transfusion Reactions: No Reported Reaction Additional Past Anesthesia/Blood Transfusion Reaction / Comm: no blood transfusion Past Psychological History: Anxiety, Depression Smoking Status: Former smoker Past Alcohol Use History: None Reported Past Drug Use History: Marijuana - Past Family History Mother Family Medical History: No Reported History Medications and Allergies Home Medications Medication Instructions Recorded Confirmed Type Albuterol Sulfate [Proair Hfa] 2 puff INHALATION RT-Q4H PRN 08/04/14 09/28/23 History Aspirin 81 mg PO DAILY 08/04/14 09/28/23 History Doxazosin Mesylate [Cardura] 4 mg PO DAILY 08/04/14 09/28/23 History Enalapril [Vasotec] 20 mg PO DAILY 08/04/14 09/28/23 History Fenofibrate 160 mg PO DAILY 08/04/14 09/28/23 History Finasteride [Proscar] 5 mg PO DAILY 08/04/14 09/28/23 History Multivitamin [Men's Multi-Vitamin] 1 tab PO DAILY 08/04/14 09/28/23 History metFORMIN HCL ER [Glucophage XR] 1,000 mg PO BID 08/04/14 09/28/23 History buPROPion HCL [Wellbutrin XL] 300 mg PO DAILY 05/10/15 09/28/23 History L.acidoph,Paracasei, B.lactis 1 cap PO DAILY 01/05/23 09/28/23 History [Probiotic] amLODIPine [Norvasc] 5 mg PO DAILY 01/05/23 09/28/23 History Dulaglutide [Trulicity] 1.5 mg SQ WE 09/28/23 09/28/23 History Simvastatin [Zocor] 20 mg PO HS 09/28/23 09/28/23 History glipiZIDE [glipiZIDE ER] 10 mg PO DAILY 09/28/23 09/28/23 History traZODone HCL [Desyrel] 50 mg PO HS 09/28/23 09/28/23 History Allergies Allergy/AdvReac Type Severity Reaction Status Date / Time No Known Allergies Allergy Verified 09/28/23 18:38 Surgical - Exam Vital Signs Temp Pulse Resp BP Pulse Ox 97.1 F L 96 18 105/59 96 09/28/23 16:31 09/28/23 16:31 09/28/23 16:31 09/28/23 16:31 09/28/23 16:31 General appearance: The patient is alert, oriented, appears in no acute distress. HET: Head is normocephalic and atraumatic. Pupils are equal and reactive. Neck: Supple. Heart: Regular. Lungs: Equal expansion, normal respiratory effort. Bilateral wheezes. Abdomen: Soft, nontender, nondistended. Extremities: Normal skin color and turgor. Neurological: No focal deficits. Alert and oriented x 3. Results - Labs 09/28/23 17:24 09/29/23 03:49 Abnormal Lab Results - Last 24 Hours (Table) 09/28/23 09/28/2324 Range/Units 17:24 17:24 17:24 RBC 4.25 L (4.30-5.90) m/uL Hgb 12.4 L (13.0-17.5) gm/dL Hct 37.9 L (39.0-53.0) % RDW 16.0 H (11.5-15.5) % PT 13.7 H (10.0-12.5) sec INR 1.3 H (<1.2) Sodium 136 L (137-145) mmol/L Anion Gap (4.00-12.00) mmol/L Glucose 137 H (74-99) mg/dL POC Glucose (mg/dL) (70-110) mg/dL Hemoglobin A1c (<=6.0) % Calcium (8.7-10.3) mg/dL Total Bilirubin 2.9 H (0.2-1.3) mg/dL AST 97 H (17-59) U/L ALT 81 H (4-49) U/L Alkaline Phosphatase 407 H (38-126) U/L Total Protein 6.2 L (6.3-8.2) g/dL Albumin 3.3 L (3.5-5.0) g/dL Albumin/Globulin Ratio (1.60-3.17) Ratio Procalcitonin (0.02-0.09) ng/mL 09/29/23 09/29/23 09/29/23 Range/Units 03:49 03:49 03:49 RBC (4.30-5.90) m/uL Hgb (13.0-17.5) gm/dL Hct (39.0-53.0) % RDW (11.5-15.5) % PT (10.0-12.5) sec INR (<1.2) Sodium (137-145) mmol/L Anion Gap 12.40 H (4.00-12.00) mmol/L Glucose 55 L (74-99) mg/dL POC Glucose (mg/dL) (70-110) mg/dL Hemoglobin A1c 6.2 H (<=6.0) % Calcium 8.6 L (8.7-10.3) mg/dL Total Bilirubin 2.2 H (0.2-1.3) mg/dL AST 93 H (17-59) U/L ALT 90 H (4-49) U/L Alkaline Phosphatase 498 H (38-126) U/L Total Protein 6.0 L (6.3-8.2) g/dL Albumin 3.3 L (3.5-5.0) g/dL Albumin/Globulin Ratio 1.22 L (1.60-3.17) Ratio Procalcitonin 0.18 H (0.02-0.09) ng/mL 09/29/23 Range/Units 06:17 RBC (4.30-5.90) m/uL Hgb (13.0-17.5) gm/dL Hct (39.0-53.0) % RDW (11.5-15.5) % PT (10.0-12.5) sec INR (<1.2) Sodium (137-145) mmol/L Anion Gap (4.00-12.00) mmol/L Glucose (74-99) mg/dL POC Glucose (mg/dL) 57 L (70-110) mg/dL Hemoglobin A1c (<=6.0) % Calcium (8.7-10.3) mg/dL Total Bilirubin (0.2-1.3) mg/dL AST (17-59) U/L ALT (4-49) U/L Alkaline Phosphatase (38-126) U/L Total Protein (6.3-8.2) g/dL Albumin (3.5-5.0) g/dL Albumin/Globulin Ratio (1.60-3.17) Ratio Procalcitonin (0.02-0.09) ng/mL Diabetes panel 09/28/23 09/29/23 09/29/23 Range/Units 17:24 03:49 03:49 Sodium 136 L 139 (137-145) mmol/L Potassium 4.3 4.1 (3.5-5.1) mmol/L Chloride 105 105 (98-107) mmol/L Carbon Dioxide 23 21.6 (22-30) mmol/L BUN 19 14.0 (9-20) mg/dL Creatinine 0.83 0.8 (0.66-1.25) mg/dL Glucose 137 H 55 L (74-99) mg/dL Hemoglobin A1c 6.2 H (<=6.0) % Calcium 9.1 8.6 L (8.4-10.2) mg/dL AST 97 H 93 H (17-59) U/L ALT 81 H 90 H (4-49) U/L Alkaline Phosphatase 407 H 498 H (38-126) U/L Total Protein 6.2 L 6.0 L (6.3-8.2) g/dL Albumin 3.3 L 3.3 L (3.5-5.0) g/dL Calcium panel 09/28/23 09/29/23 Range/Units 17: 03:49 Calcium 9.1 8.6 L (8.4-10.2) mg/dL Albumin 3.3 L 3.3 L (3.5-5.0) g/dL Pituitary panel 09/28/23 09/29/23 Range/Units 17:24 03:49 Sodium 136 L 139 (137-145) mmol/L Potassium 4.3 4.1 (3.5-5.1) mmol/L Chloride 105 105 (98-107) mmol/L Carbon Dioxide 23 21.6 (22-30) mmol/L BUN 19 14.0 (9-20) mg/dL Creatinine 0.83 0.8 (0.66-1.25) mg/dL Glucose 137 H 55 L (74-99) mg/dL Calcium 9.1 8.6 L (8.4-10.2) mg/dL Adrenal panel 09/28/23 09/29/23 Range/Units 17:24 03:49 Sodium 136 L 139 (137-145) mmol/L Potassium 4.3 4.1 (3.5-5.1) mmol/L Chloride 105 105 (98-107) mmol/L Carbon Dioxide 23 21.6 (22-30) mmol/L BUN 19 14.0 (9-20) mg/dL Creatinine 0.83 0.8 (0.66-1.25) mg/dL Glucose 137 H 55 L (74-99) mg/dL Calcium 9.1 8.6 L (8.4-10.2) mg/dL Total Bilirubin 2.9 H 2.2 H (0.2-1.3) mg/dL AST 97 H 93 H (17-59) U/L ALT 81 H 90 H (4-49) U/L Alkaline Phosphatase 407 H 498 H (38-126) U/L Total Protein 6.2 L 6.0 L (6.3-8.2) g/dL Albumin 3.3 L 3.3 L (3.5-5.0) g/dL - Imaging Comments: Chest x-ray reports right midlung consolidation possibly representing underlying mass given patient's history of weight loss and cough. Further evaluation of cross-sectional imaging recommended Chest CT reports right upper lobe consolidation with volume loss and intersti tial edema in the right lung. Some of consolidation may represent pneumonia. A component of malignancy is not excluded. Moderate right pleural effusion. Chest ultrasound Ultrasound of liver reports liver is heterogeneous with findings suspicious for portal venous thrombosis. Underlying heterogeneity could be related to underlying hepatocellular disease. Gallbladder wall is thickened with a small amount of pericholecystic fluid and gallstone correlate for cholecystitis. Assessment and Plan Assessment: 1. Chronic cough and shortness of breath 2. Possible portal venous thrombosis seen on liver ultrasound 3. Right perihilar masslike consolidation 4. Elevated LFTs 5. Unintentional 20 pound weight loss 6. Chronic obstructive pulmonary disease 7. Former tobacco dependence quitting approximately 1 month ago with [id number] history 8. Hypertension and hyperlipidemia 9. Diabetes mellitus Plan: 1. CT angiogram abdomen and pelvis ordered with venous phase 2. Heparin drip ordered per primary medical team, continue for now 3. Continue with recommendations from pulmonology 4. Further recommendations forthcoming per vascular surgeon Thank you for this consultation, we will continue to follow. The impression and plan of care has been dictated as directed. I performed a history and examination of this patient, discussed the same with the dictator. I agree with the dictator's note ,documented as a scribe. Any additional findings or plans will be noted.
--- NOTE | 2023-09-29 10:58 | P.PN ---
Subjective Progress Note Date: 09/29/23 Subjective: Patient seen at bedside. No significant overnight events. Patient reports this morning feeling slightly better than when he previous arrived last night. Pertinent positives and negatives discussed above, a complete review of systems was preformed and all the other sytems were negative. Vitals Signs Reveiwed. Vital signs reviewed General: non toxic, no distress, appears at stated age, normal weight Derm: no unusual rashes/lesions, warm Head: atraumatic, normocephalic, symmetric Eyes: EOMI, no lid lag, anicteric sclera, pupils equal round reactive to light Neck: No cervical lymphadenopathy, trachea midline, supple Mouth: no lip lesion, mucus membranes moist Cardiovascular: S1S2 reg, no murmur, positive dorsalis pedis pulse bilateral, no edema Lungs: Bilateral expiratory rhonchi with diffuse wheezing, no rales, no accessory muscle use Abdominal: soft, nontender to palpation, no guarding Ext: muscle strength 5 out of 5 in all 4 extremities grossly, no gross muscle atrophy, no contractures, Neuro: CN II-XI grossly intact, no gross focal neuro deficits Psych: Alert, oriented, appropriate affect Data Reveiwed Today: Patient Labs: Sodium 139, potassium 4.1, bicarb 12.4, glucose 55, hemoglobin A1c 6.2, calcium 8.1, total bilirubin 2.2, AST 93, ALT 90, alkaline phosphatase 498, total protein 6, albumin 3.3, procalcitonin 0.18. Imaging: Chest CT shows right upper lobe consolidation with volume loss and interstitial edema in the right lung. Similar consolidation may represent pneumonia. A component malignancy is not excluded. Moderate right-sided pleural effusion. Liver ultrasound shows possible clot visualized in MPV and LPV, and gallbladder wall thickening with fluid seen adjacent to it. 2 mobile echogenic foci with largest equaling 1.3 cm, CBD within normal limits. Chest ultrasound showed small right pleural effusion. Assessment/Plan: 68 -year-old male with COPD not on home oxygen quit smoking 1 month ago , presents to the ER with progressively worsening shortness of breath associated with productive cough and unintentional weight loss since 2 months. Acute on chronic bronchitis with failed outpatient therapy Started on DuoNebs [id number] and as needed Resume albuterol inhaler 2 puffs RT every 4 hours Ordered oxygen therapy with 2 L via nasal cannula, currently saturating well on room air prednisone PO 40 mg daily patient received multiple courses of oral steroids and antibiotics as OP over the past 8 weeks, will hold off antibiotics for now After discussing with pulmonology, patient planned to undergo bronchoscopy and biopsy tomorrow (09/29), but will first check in with vascular and general surgery in regards to potential clot in MPV and LPV and will also check in with general surgery in regards to patient's cholelithiasis with potential cholecystitis. Will continue heparin drip for now after discussing with pulmonology, and will stop 2 hours before bronchoscopy tomorrow (09/29). Possible clot in main portal vein and left portal vein (portal vein thrombosis): Possible clot visualized in MPV and LPV Consulted vascular, will follow-up with their recommendations CTAP ordered by vascular for further investigation. Cholelithiasis with potential cholecystitis: On liver ultrasound gallbladder wall was thickened with fluid seen adjacent to it. 2 mobile echogenic foci visualized with largest equaling 1.3 cm, CBD was within normal limits. Consulted general surgery, will follow-up with their recommendations Started on Zosyn IV 3.375 g 3 times daily. Right midlung mass, benign versus malignant mass Chest x-ray shows right midlung consolidation possibly representing underlying mass Pulmonology planning for bronchoscopy and biopsy tomorrow (09/29) Normocytic anemia Hemoglobin 12.4 (baseline), hematocrit 37.9, MCV 89.1 Continue monitor hemoglobin level Currently no active bleeding. Coagulopathy Elevated PT 13.7, Elevated INR 1.3, aPTT 23.2 No active bleeding cafeteria monitor PT/INR Hyponatremia: Resolved Sodium increased from 1 36-1 39 this morning. Ordered normal saline IV at 50 cc/h Continue monitor sodium levels with an incidental finding of lung mass, there is some suspicion of SIADH, monitor Na level closely if it worsens while on normal saline [id number] diabetes mellitus Start on sliding scale short acting insulin A1c 6.2 Continue Accu-Cheks Elevated LFTs, suspected secondary to underlying malignancy and mets versus potential cholecystitis Total bilirubin 2.9, AST 93, ALT 90, alkaline phos 498, total protein 6.2, albumin 3.3 Continue monitor CMP BPH: Continue doxazosin 4 mg p.o. daily. And Proscar 5 mg p.o. daily Hypertension: Continue amlodipine 5 mg p.o. daily. And lisinopril 40 mg p.o. daily F NS at 1000 mL IV 50 MLS per hour E none N regular diet, n.p.o. after midnight A normally ambulates without assistance at home DVT ppx: Heparin drip IV 18 units/KG/hour Code Status: Full code Anticipated discharge place: Pending clinical course Anticipated discharge time: Pending clinical course I have seen and evaluated the patient today. Discussed with the resident and agree with the residents subjective and objective as documented in the resident's note. The assessment and plan was discussed and outlined as below. Patient continues to report cough productive of sputum. No abdominal pain, nausea or vomiting. Liver US showing possible clot in the MPV and LPV. CT AP with contrast to further evaluate by Vascular surgery. Surgery consulted for findings of cholecystitis. Stated Zosyn as well. Pulmonary plans on bronchoscopy tomorrow. Right perihilar mass like consolidation: Pulmonary plans for bronchoscopy. Suspicious for malignancy given weight loss and history of heavy smoking. He has also failed multiple rounds of PO antibiotics. Procal 0.18. Azithromycin 500 mg PO QD x 3 days by Pulmonary. Continue Zosyn as below. Transaminitis: Obstructive likely related to below. Possible portal vein thrombosis seen on Liver US: CT AP ordered to further evaluate by Vascular Surgery. Discussed with Pulmonary Lotus MORENO, OK to start Heparin drip and stop 2 hours prior to bronchoscopy. Possible cholecystitis: Start Zosyn 3.375 g IV TID. Surgery consulted. Acute on chronic COPD exacerbation: Prednisone 40 mg PO QD. DuoNeb scheduled and PRN for SOB/wheezing. Symbicort 1 INH BID. Normocytic anemia: No signs of bleeding. Trend. Supratherapeutic INR: Likely related to livery dysfunction. Diabetes mellitus with hypoglycemia: Accuchecks ACHS with Hypoglycemic precautions. Hypertension: Amlodipine 5 mg PO QD. Lisinopril 40 mg PO QD. BPH: Doxazosin 4 mg PO QD. Proscar 5 mg PO QD. Heparin drip for DVT prophylaxis. Protonix PO for GI prophylaxis. FULL CODE. Objective - Vital Signs Vital signs: Vital Signs Temp 99.0 F 09/29/23 01:15 Pulse 80 09/29/23 01:15 Resp 15 09/29/23 01:15 BP 147/84 09/29/23 01:15 Pulse Ox 97 09/29/23 01:15 FiO2 Intake & Output 07/24/24 07/25/24 07/25/24 18:59 06:59 18:59 Weight 74.389 kg 74.389 kg Other: # Voids 1 - Labs CBC & Chem 7: 09/28/23 17:24 09/29/23 03:49 Labs: Abnormal Lab Results - Last 24 Hours (Table) 09/28/23 09/28/23 09/28/23 Range/Units 17:24 17:24 17:24 RBC 4.25 L (4.30-5.90) m/uL Hgb 12.4 L (13.0-17.5) gm/dL Hct 37.9 L (39.0-53.0) % RDW 16.0 H (11.5-15.5) % PT 13.7 H (10.0-12.5) sec INR 1.3 H (<1.2) Sodium 136 L (137-145) mmol/L Glucose 137 H (74-99) mg/dL POC Glucose (mg/dL) (70-110) mg/dL Total Bilirubin 2.9 H (0.2-1.3) mg/dL AST 97 H (17-59) U/L ALT 81 H (4-49) U/L Alkaline Phosphatase 407 H (38-126) U/L Total Protein 6.2 L (6.3-8.2) g/dL Albumin 3.3 L (3.5-5.0) g/dL 09/29/23 Range/Units 06:17 RBC (4.30-5.90) m/uL Hgb (13.0-17.5) gm/dL Hct (39.0-53.0) % RDW (11.5-15.5) % PT (10.0-12.5) sec INR (<1.2) Sodium (137-145) mmol/L Glucose (74-99) mg/dL POC Glucose (mg/dL) 57 L (70-110) mg/dL Total Bilirubin (0.2-1.3) mg/dL AST (17-59) U/L ALT (4-49) U/L Alkaline Phosphatase (38-126) U/L Total Protein (6.3-8.2) g/dL Albumin (3.5-5.0) g/dL
[2023-09-29] MEDS: HEPARIN SODIUM 1,000 UN/ML (10ML VL) IV ONE (12:08)
[2023-09-29] MEDS: HEPARIN SOD,PORK IN 0.45% NACL 25,000 UNIT in 0.45% NACL 1 250ML.BAG IV SCH (12:09)
[2023-09-29] MEDS ORDERED: BENZONATATE 100 MG CAP PO PRN (12:33)
[2023-09-29 12:50] LABS: Glucose,Whole Blood 140 mg/dL (70-110)
--- NOTE | 2023-09-29 13:21 | P.GSCN ---
History of Present Illness Consult date: 09/29/23 History of present illness: CHIEF COMPLAINT: Cough HISTORY OF PRESENT ILLNESS: This is a 68-year-old male who presented to the hospital with complaints productive cough with multiple rounds of antibiotics outpatient. He is then seen by pulmonary service and scheduled for bronchoscopy for further evaluation of suspicious perihilar mass. Patient had a liver ultrasound completed due to elevated liver enzymes it revealed a portal venous thrombosis he is on IV heparin. Also reported gallbladder wall thickening small amount of pericholecystic fluid and gallstones. Surgical service consulted for possible cholecystitis. Patient denies any abdominal pain. Denies any nausea or vomiting. Tolerating diet. He has mildly elevated liver enzymes. Denies any alcohol use. Denies any prior history of elevated liver enzymes. He does report his urine is dark at times. And stools have been brown in color. Patient seen and examined with Dr. Tena PAST MEDICAL HISTORY: Asthma, COPD, Diabetes Mellitus, GERD/Reflux, Hyperlipidemia, Hypertension, Prostate Disorder PAST SURGICAL HISTORY: Hernia repair MEDICATIONS: See below ALLERGIES: See below SOCIAL HISTORY: No illicit drug use. REVIEW OF SYSTEMS: CONSTITUTIONAL: Denies fever or chills. HEENT: Denies blurred vision, vision changes, or eye pain. Denies hemoptysis CARDIOVASCULAR: Denies chest pain or pressure. RESPIRATORY: No shortness of breath. GASTROINTESTINAL: See HPI for pertinent findings HEMATOLOGIC: Denies bleeding disorders. GENITOURINARY: Denies any blood in urine or increased urinary frequency. SKIN: Denies pruitis. Denies rash. PHYSICAL EXAM: VITAL SIGNS: Reviewed GENERAL: Well-developed in no acute distress. ABDOMEN: Soft. Nondistended. Nontender NEUROLOGIC: Alert and oriented. Cranial nerves II through XII grossly intact. LABORATORY DATA: WBC 9.0 Hgb 12.4 platelets 287 INR 1.3 Sodium 139 potassium 4.1 creatinine 0.8 Hemoglobin A1c 6.2 Total bilirubin 2.2 AST 93 ALT 90 alk phos 498 IMAGING: Liver ultrasound reports liver is heterogenous with findings suspicious for portal venous thrombosis. Underlying heterogeneity could be related to underlying hepatocellular disease. Gallbladder wall is thickened with a small amount of pericholecystic fluid and a gallstone. Correlate for cholecystitis. CT chest reports right upper lobe consolidation with small volume loss and interstitial edema in the right lung. Some of the consolidation may represent pneumonia. Component of malignancy not excluded. Moderate right pleural effusion ASSESSMENT: 1. Chronic cholecystitis. Gallbladder wall thickened with small amount of pericholecystic fluid and gallstones noted on ultrasound 2. Mildly elevated LFTs 3. Portal venous thrombosis 4. Right upper lobe lung consolidation PLAN: -Recommend outpatient cholecystectomy when medically stable -Continue supportive care Physician Med Asst note has been reviewed by physician. Signing provider agrees with the documented findings, assessment, and plan of care. Past Medical History Past Medical History: Asthma, COPD, Diabetes Mellitus, GERD/Reflux, Hyperlipidemia, Hypertension, Prostate Disorder Additional Past Medical History / Comment(s): arthritis, History of Any Multi-Drug Resistant Organisms: None Reported Past Surgical History: Hernia Repair Past Anesthesia/Blood Transfusion Reactions: No Reported Reaction Additional Past Anesthesia/Blood Transfusion Reaction / Comm: no blood transfusion Past Psychological History: Anxiety, Depression Smoking Status: Former smoker Past Alcohol Use History: None Reported Past Drug Use History: Marijuana - Past Family History Mother Family Medical History: No Reported History Medications and Allergies Home Medications Medication Instructions Recorded Confirmed Type Albuterol Sulfate [Proair Hfa] 2 puff INHALATION RT-Q4H PRN 08/04/14 09/28/23 History Aspirin 81 mg PO DAILY 08/04/14 09/28/23 History Doxazosin Mesylate [Cardura] 4 mg PO DAILY 08/04/14 09/28/23 History Enalapril [Vasotec] 20 mg PO DAILY 08/04/14 09/28/23 History Fenofibrate 160 mg PO DAILY 08/04/14 09/28/23 History Finasteride [Proscar] 5 mg PO DAILY 08/04/14 09/28/23 History Multivitamin [Men's Multi-Vitamin] 1 tab PO DAILY 08/04/14 09/28/23 History metFORMIN HCL ER [Glucophage XR] 1,000 mg PO BID 08/04/14 09/28/23 History buPROPion HCL [Wellbutrin XL] 300 mg PO DAILY 05/10/15 09/28/23 History L.acidoph,Paracasei, B.lactis 1 cap PO DAILY 01/05/23 09/28/23 History [Probiotic] amLODIPine [Norvasc] 5 mg PO DAILY 01/05/23 09/28/23 History Dulaglutide [Trulicity] 1.5 mg SQ WE 09/28/23 09/28/23 History Simvastatin [Zocor] 20 mg PO HS 09/28/23 09/28/23 History glipiZIDE [glipiZIDE ER] 10 mg PO DAILY 09/28/23 09/28/23 History traZODone HCL [Desyrel] 50 mg PO HS 09/28/23 09/28/23 History Allergies Allergy/AdvReac Type Severity Reaction Status Date / Time No Known Allergies Allergy Verified 09/28/23 18:38 Surgical - Exam Vital Signs Temp Pulse Resp BP Pulse Ox 97.1 F L 96 18 105/59 96 09/28/23 16:31 09/28/23 16:31 09/28/23 16:31 09/28/23 16:31 09/28/23 16:31 Results - Labs 09/28/23 17:24 09/29/23 03:49 Abnormal Lab Results - Last 24 Hours (Table) 09/28/23 09/28/23 09/28/23 Range/Units 17:24 17:24 17:24 RBC 4.25 L (4.30-5.90) m/uL Hgb 12.4 L (13.0-17.5) gm/dL Hct 37.9 L (39.0-53.0) % RDW 16.0 H (11.5-15.5) % PT 13.7 H (10.0-12.5) sec INR 1.3 H (<1.2) Sodium 136 L (137-145) mmol/L Anion Gap (4.00-12.00) mmol/L Glucose 137 H (74-99) mg/dL POC Glucose (mg/dL) (70-110) mg/dL Hemoglobin A1c (<=6.0) % Calcium (8.7-10.3) mg/dL Total Bilirubin 2.9 H (0.2-1.3) mg/dL AST 97 H (17-59) U/L ALT 81 H (4-49) U/L Alkaline Phosphatase 407 H (38-126) U/L Total Protein 6.2 L (6.3-8.2) g/dL Albumin 3.3 L (3.5-5.0) g/dL Albumin/Globulin Ratio (1.60-3.17) Ratio Procalcitonin (0.02-0.09) ng/mL 09/29/23 09/29/23 09/29/23 Range/Units 03:49 03:49 03:49 RBC (4.30-5.90) m/uL Hgb (13.0-17.5) gm/dL Hct (39.0-53.0) % RDW (11.5-15.5) % PT (10.0-12.5) sec INR (<1.2) Sodium (137-145) mmol/L Anion Gap 12.40 H (4.00-12.00) mmol/L Glucose 55 L (74-99) mg/dL POC Glucose (mg/dL) (70-110) mg/dL Hemoglobin A1c 6.2 H (<=6.0) % Calcium 8.6 L (8.7-10.3) mg/dL Total Bilirubin 2.2 H (0.2-1.3) mg/dL AST 93 H (17-59) U/L ALT 90 H (4-49) U/L Alkaline Phosphatase 498 H (38-126) U/L Total Protein 6.0 L (6.3-8.2) g/dL Albumin 3.3 L (3.5-5.0) g/dL Albumin/Globulin Ratio 1.22 L (1.60-3.17) Ratio Procalcitonin 0.18 H (0.02-0.09) ng/mL 09/29/23 Range/Units 06:17 RBC (4.30-5.90) m/uL Hgb (13.0-17.5) gm/dL Hct (39.0-53.0) % RDW (11.5-15.5) % PT (10.0-12.5) sec INR (<1.2) Sodium (137-145) mmol/L Anion Gap (4.00-12.00) mmol/L Glucose (74-99) mg/dL POC Glucose (mg/dL) 57 L (70-110) mg/dL Hemoglobin A1c (<=6.0) % Calcium (8.7-10.3) mg/dL Total Bilirubin (0.2-1.3) mg/dL AST (17-59) U/L ALT (4-49) U/L Alkaline Phosphatase (38-126) U/L Total Protein (6.3-8.2) g/dL Albumin (3.5-5.0) g/dL Albumin/Globulin Ratio (1.60-3.17) Ratio Procalcitonin (0.02-0.09) ng/mL Diabetes panel 09/28/23 09/29/23 09/29/23 Range/Units 17: 03:49 03:49 Sodium 136 L 139 (137-145) mmol/L Potassium 4.3 4.1 (3.5-5.1) mmol/L Chloride 105 105 (98-107) mmol/L Carbon Dioxide 23 21.6 (22-30) mmol/L BUN 19 14.0 (9-20) mg/dL Creatinine 0.83 0.8 (0.66-1.25) mg/dL Glucose 137 H 55 L (74-99) mg/dL Hemoglobin A1c 6.2 H (<=6.0) % Calcium 9.1 8.6 L (8.4-10.2) mg/dL AST 97 H 93 H (17-59) U/L ALT 81 H 90 H (4-49) U/L Alkaline Phosphatase 407 H 498 H (38-126) U/L Total Protein 6.2 L 6.0 L (6.3-8.2) g/dL Albumin 3.3 L 3.3 L (3.5-5.0) g/dL Calcium panel 09/28/23 09/29/23 Range/Units 17:24 03:49 Calcium 9.1 8.6 L (8.4-10.2) mg/dL Albumin 3.3 L 3.3 L (3.5-5.0) g/dL Pituitary panel 09/28/23 09/29/23 Range/Units 17:24 03:49 Sodium 136 L 139 (137-145) mmol/L Potassium 4.3 4.1 (3.5-5.1) mmol/L Chloride 105 105 (98-107) mmol/L Carbon Dioxide 23 21.6 (22-30) mmol/L BUN 19 14.0 (9-20) mg/dL Creatinine 0.83 0.8 (0.66-1.25) mg/dL Glucose 137 H 55 L (74-99) mg/dL Calcium 9.1 8.6 L (8.4-10.2) mg/dL Adrenal panel 09/28/23 09/29/23 Range/Units 17:24 03:49 Sodium 136 L 139 (137-145) mmol/L Potassium 4.3 4.1 (3.5-5.1) mmol/L Chloride 105 105 (98-107) mmol/L Carbon Dioxide 23 21.6 (22-30) mmol/L BUN 19 14.0 (9-20) mg/dL Creatinine 0.83 0.8 (0.66-1.25) mg/dL Glucose 137 H 55 L (74-99) mg/dL Calcium 9.1 8.6 L (8.4-10.2) mg/dL Total Bilirubin 2.9 H 2.2 H (0.2-1.3) mg/dL AST 97 H 93 H (17-59) U/L ALT 81 H 90 H (4-49) U/L Alkaline Phosphatase 407 H 498 H (38-126) U/L Total Protein 6.2 L 6.0 L (6.3-8.2) g/dL Albumin 3.3 L 3.3 L (3.5-5.0) g/dL
[2023-09-29] MEDS: BENZONATATE 100 MG CAP PO SCH (16:18)
[2023-09-29 17:40] LABS: Glucose,Whole Blood 233 mg/dL (70-110)
[2023-09-29] MEDS: SYMBICORT 160-4.5 MCG INHALER INHALATION SCH (19:53)
[2023-09-29 20:52] LABS: Glucose,Whole Blood 155 mg/dL (70-110)
[2023-09-29 20:59] LABS: African American GFR (CKD) >90 (>60 ml/min/1.73 sqM); Blood Urea Nitrogen 15 mg/dL (9-20); Non-African American GFR(CKD) >90 (>60 ml/min/1.73 sqM)
--- NOTE | 2023-09-30 04:19 | CT ---
EXAM: CT Abdomen and Pelvis With Intravenous Contrast CLINICAL HISTORY: ITS.REASON CT Reason: Possible portal vein thrombus seen on ultrasound TECHNIQUE: Axial computed tomographic images of the abdomen and pelvis with intravenous contrast. CTDI is 48.413 mGy and DLP is 1582.7 mGy-cm. This CT exam was performed using one or more of the following dose reduction techniques: automated exposure control, adjustment of the mA and/or kV according to patient size, and/or use of iterative reconstruction technique. COMPARISON: No relevant prior studies available. FINDINGS: VASCULATURE: Aorta: No acute findings. No abdominal aortic aneurysm. No dissection. Celiac trunk and mesenteric arteries: No acute findings. No occlusion or significant stenosis. Renal arteries: No acute findings. No occlusion or significant stenosis. Iliac arteries: No acute findings. No occlusion or significant stenosis. Portal veins: Nonocclusive portal vein thrombus with extension into the left portal vein. Right portal vein remains patent. No involvement of the superior mesenteric vein. Lung bases: Patchy interstitial infiltrates within the aerated portions of the right lower lobe. Pleural space: Right pleural effusion. ABDOMEN: Liver: Unremarkable. No mass. Gallbladder and bile ducts: Gallbladder is contracted. No calcified stones. No ductal dilation. Pancreas: Unremarkable. No ductal dilation. No mass. Spleen: Unremarkable. No splenomegaly. Adrenals: Unremarkable. No mass. Kidneys and ureters: Unremarkable. No hydronephrosis. No solid mass. Stomach and bowel: Unremarkable. No obstruction. No mucosal thickening. PELVIS: Appendix: No findings to suggest acute appendicitis. Bladder: Unremarkable. No mass. Reproductive: Unremarkable as visualized. ABDOMEN and PELVIS: Intraperitoneal space: Minimal intra-abdominal volume of abdominal and pelvic ascites. No free air. Bones/joints: No acute fracture. No dislocation. Soft tissues: Unremarkable. Lymph nodes: Unremarkable. No enlarged lymph nodes. IMPRESSION: Portal vein thrombosis extending from the main portal vein into the left portal vein. The right portal vein remains patent. No involving the superior mesenteric vein Minimal intra-abdominal volume of abdominal and pelvic ascites. Right pleural effusion. <MYCVCSECTION> Communications: 09/30/23 04:52 Call Doctor Regarding Other, read report to Dr. Tenorio on 09/29 04:51 (-04:00)
[2023-09-30] MEDS: oxyCODONE-APAP 5-325MG 1 EACH TAB PO PRN (05:52)
[2023-09-30 06:08] LABS: Glucose,Whole Blood 68 mg/dL (70-110)
[2023-09-30] MEDS: DEXTROSE 50% SYRINGE 50 ML IVP PRN (06:21)
[2023-09-30 08:15] LABS: Glucose,Whole Blood 87 mg/dL (70-110)
[2023-09-30 08:29] LABS: Basophils # (A) 0.03 X 10*3/uL (0.00-0.10); Basophils % (A) 0.3 %; Eosinophils # (A) 0.04 X 10*3/uL (0.04-0.35); Eosinophils % (A) 0.4 %; HCT 35.2 % (39.6-50.0); HGB 11.6 g/dL (13.0-17.0); Lymphocytes # (A) 1.48 X 10*3/uL (0.90-5.00); Lymphocytes % (A) 13.9 %; MCH 28.4 pg (27.0-32.0); MCV 86.3 FL (80.0-97.0); Mean Platelet Volume 12.2 FL (9.5-12.2); Monocytes # (A) 1.16 X 10*3/uL (0.20-1.00); Monocytes % (A) 10.9 %; NRBC Per 100 WBC 0 X 10*3/uL (0.00-0.01); Neutrophils # (A) 7.94 X 10*3/uL (1.80-7.70); Neutrophils % (A) 74.2 %; Platelet Count 283 X 10*3/uL (140-440); RBC 4.08 X 10*6/uL (4.40-5.60); RDW 17.3 % (11.5-14.5); WBC 10.68 X 10*3/uL (4.50-10.00)
[2023-09-30] MEDS: AZITHROMYCIN 500 MG TAB PO SCH (08:32)
[2023-09-30 08:37] LABS: ALT 85 U/L (10-49); AST 79 U/L (14-35); Albumin 3.3 g/dL (3.8-4.9); Albumin/Globulin Ratio 1.32 Ratio (1.60-3.17); Alkaline Phosphatase 456 U/L (41-126); BUN/Creat Ratio 14.75 Ratio (12.00-20.00); Blood Urea Nitrogen 11.8 mg/dL (9.0-27.0); Calcium 8.6 mg/dL (8.7-10.3); Carbon Dioxide 22.1 mmol/L (21.6-31.8); Chloride 104 mmol/L (96-109); Globulin 2.5 g/dL (1.6-3.3); Glucose 79 mg/dL (70-110); Potassium 3.9 mmol/L (3.5-5.5); Sodium 139 mmol/L (135-145); Total Bilirubin 1.8 mg/dL (0.3-1.2); Total Protein 5.8 g/dL (6.2-8.2)
--- NOTE | 2023-09-30 09:00 | P.PN ---
Subjective Progress Note Date: 09/30/23 Principal diagnosis: Portal venous thrombosis Patient is seen and examined today as a follow-up. He is lying in bed and appears comfortable. He is scheduled for bronchoscopy today with pulmonology. Denies any abdominal pain, nausea or vomiting. He remains on a heparin drip. Patient underwent CT angiogram abdomen pelvis with venous phase that reported portal vein thrombosis extending from the main portal vein into the left portal vein. The right portal vein remains patent. No involving the superior mesenteric vein. Minimal intra-abdominal volume of abdominal and pelvic ascites. Objective - Vital Signs Vital signs: Vital Signs Temp 98.0 F 09/30/23 07:00 Pulse 62 09/30/23 07:00 Resp 16 09/30/23 07:00 BP 138/76 09/30/23 07:00 Pulse Ox 95 09/30/23 07:00 FiO2 Intake & Output 09/29/23 09/30/23 09/30/23 18:59 06:59 18:59 Intake Total 42.402 145.426 Balance 42.402 145.426 Weight 74.389 kg Intake: Intake, IV Titration 42.402 145.426 Amount Heparin Sod,Pork in 0.45% 42.402 145.426 NaCl 25,000 unit In 0.45 % NaCl 1 250ml.bag @ 18 UNITS/KG/HR 13.39 mls/hr IV .[id number] [facility] Rx#: [id number] Other: # Voids 2 2 - Exam General appearance: The patient is alert, oriented, appears in no acute distress. HET: Head is normocephalic and atraumatic. Pupils are equal and reactive. Neck: Supple. Heart: Regular. Lungs: Equal expansion, normal respiratory effort. Bilateral wheezes. Abdomen: Soft, nontender, nondistended. Extremities: Normal skin color and turgor. Neurological: No focal deficits. Alert and oriented x 3. - Labs CBC & Chem 7: 09/30/23 03:46 09/30/23 03:46 Labs: Abnormal Lab Results - Last 24 Hours (Table) 09/29/23 09/29/23 09/29/23 Range/Units 03:49 03:49 03:49 APTT (22.0-30.0) sec Anion Gap 12.40 H (4.00-12.00) mmol/L Glucose 55 L (70-110) mg/dL POC Glucose (mg/dL) (70-110) mg/dL Hemoglobin A1c 6.2 H (<=6.0) % Calcium 8.6 L (8.7-10.3) mg/dL Total Bilirubin 2.2 H (0.3-1.2) mg/dL AST 93 H (14-35) U/L ALT 90 H (10-49) U/L Alkaline Phosphatase 498 H (41-126) U/L Total Protein 6.0 L (6.2-8.2) g/dL Albumin 3.3 L (3.8-4.9) g/dL Albumin/Globulin Ratio 1.22 L (1.60-3.17) Ratio Procalcitonin 0.18 H (0.02-0.09) ng/mL 09/29/23 09/29/23 09/29/23 Range/Units 12:49 14:03 17:39 APTT 146.7 H* (22.0-30.0) sec Anion Gap (4.00-12.00) mmol/L Glucose (70-110) mg/dL POC Glucose (mg/dL) 140 H 233 H (70-110) mg/dL Hemoglobin A1c (<=6.0) % Calcium (8.7-10.3) mg/dL Total Bilirubin (0.3-1.2) mg/dL AST (14-35) U/L ALT (10-49) U/L Alkaline Phosphatase (41-126) U/L Total Protein (6.2-8.2) g/dL Albumin (3.8-4.9) g/dL Albumin/Globulin Ratio (1.60-3.17) Ratio Procalcitonin (0.02-0.09) ng/mL 09/29/23 09/29/23 09/30/23 Range/Units 20:22 20:50 03:46 APTT 72.6 H 85.9 H (22.0-30.0) sec Anion Gap (4.00-12.00) mmol/L Glucose (70-110) mg/dL POC Glucose (mg/dL) 155 H (70-110) mg/dL Hemoglobin A1c (<=6.0) % Calcium (8.7-10.3) mg/dL Total Bilirubin (0.3-1.2) mg/dL AST (14-35) U/L ALT (10-49) U/L Alkaline Phosphatase (41-126) U/L Total Protein (6.2-8.2) g/dL Albumin (3.8-4.9) g/dL Albumin/Globulin Ratio (1.60-3.17) Ratio Procalcitonin (0.02-0.09) ng/mL 09/30/23 Range/Units 06:05 APTT (22.0-30.0) sec Anion Gap (4.00-12.00) mmol/L Glucose (70-110) mg/dL POC Glucose (mg/dL) 68 L (70-110) mg/dL Hemoglobin A1c (<=6.0) % Calcium (8.7-10.3) mg/dL Total Bilirubin (0.3-1.2) mg/dL AST (14-35) U/L ALT (10-49) U/L Alkaline Phosphatase (41-126) U/L Total Protein (6.2-8.2) g/dL Albumin (3.8-4.9) g/dL Albumin/Globulin Ratio (1.60-3.17) Ratio Procalcitonin (0.02-0.09) ng/mL Assessment and Plan Assessment: 1. Chronic cough and shortness of breath 2. Portal venous thrombosis 3. Right perihilar masslike consolidation 4. Elevated LFTs 5. Unintentional 20 pound weight loss 6. Chronic obstructive pulmonary disease 7. Former tobacco dependence quitting approximately 1 month ago with [id number] history 8. Hypertension and hyperlipidemia 9. Diabetes mellitus Plan: 1. CT angiogram abdomen and pelvis with venous phase ordered and reviewed 2. Consult to hematology/oncology for portal venous thrombosis for recommendations on anticoagulation 3. There is no indication for any vascular surgical intervention 4. Continue heparin drip for now, transition to oral anticoagulation when cleared by pulmonology Thank you for this consultation, we will sign off at this time. The impression and plan of care has been dictated as directed. I performed a history and examination of this patient, discussed the same with the dictator. I agree with the dictator's note ,documented as a scribe. Any additional findings or plans will be noted.
[2023-09-30] MEDS: PIPERACILLIN-TAZOBACTAM 3.375 GM in SODIUM CHLORIDE 0.9% 100 ML IVPB SCH (10:17)
--- NOTE | 2023-09-30 11:08 | P.PN ---
Subjective Progress Note Date: 09/30/23 Patient is a 68-year-old white male with past medical history significant for hypertension, hyperlipidemia, diabetes, chronic obstructive pulmonary disease, former tobacco dependence. Primary care provider is Dr. Castelan. Patient's chief complaint is a persistent cough for the last 2 months. He has been seen by multiple urgent care clinics, treated with courses of antibiotics and steroids without any significant improvement in his symptoms. He did go to his primary care provider yesterday, who directed him to the emergency department. He is complaining of a persistent cough over the last 2 months. Previously productive with yellow sputum, now non-productive. No hemoptysis. The cough has interfered with his sleeping. He is also been short of breath with minimal exertion. His rescue inhaler has not been providing much relief. He has been generally weak. Denies fevers. Denies sick contacts. He does have history of COPD. He has history of heavy tobacco dependence, quitting approximately 1 month ago. Reports [id number] smoking history. He has had also poor appetite. Endorses 20 pound weight loss over 2-month timeframe. Denies any history of cancer. Chest x-ray done arrival shows a suspicious right perihilar masslike opacity and volume loss. CBC unremarkable without leukocytosis. CMP: Sodium 136, potassium 4.3, chloride 105, serum bicarb 23, BUN 19, creatinine 0.83, glucose 137. Normal saline infusing at 50 MLS per hour. LFTs are mildly elevated. AST 97, ALT 81, ALP 407. Total bilirubin 2.9. Troponin less than 0.012. Patient is currently resting comfortably on room air. He continues to have persistent cough, which is currently nonproductive. Afebrile. Vital signs are stable. Patient will be taken down for CT of the chest tonight. The patient is seen today September 30, 2023 in follow-up on the regular medical floor. He is currently resting in bed. Awake and alert in no acute distress. He did not denies any worsening shortness of breath, cough or congestion. He is maintaining good O2 saturations in room air. He remains on normal saline at 50 MLS per hour. Continued on a heparin drip. Plan is for bronchoscopy with biopsies today. Heparin will be discontinued at 10 AM. Ultrasound of the chest revealed a right sided pleural effusion with a 4.6 cm pocket. Ultrasound of the liver revealed findings suspicious for portal venous thrombosis. Heterogeneity could be related to underlying hepatocellular disease. CAT scan of the abdomen pelvis revealed portal vein thrombosis extending from the main portal vein into the left portal vein. The right portal vein remains patent. No involvement in the superior mesenteric vein. Minimal abdominal volume of abdominal and pelvic ascites. Right pleural effusion. White count 10.6. Hemoglobin 11.6. Platelets 283. Sodium 139. Potassium 3.9. Bicarb 22. BUN 12. Creatinine 0.8. Glucose 79. He is continued on DuoNeb inhalations, Symbicort, prednisone. Antibiotics in the form of Zosyn and Zithromax. Objective - Vital Signs Vital signs: Vital Signs Temp 98.0 F 09/30/23 07:00 Pulse 84 09/30/23 09:12 Resp 16 09/30/23 08:00 BP 138/76 09/30/23 07:00 Pulse Ox 95 09/30/23 09:05 FiO2 Intake & Output 09/29/23 09/30/23 09/30/23 18:59 06:59 18:59 Intake Total 42.402 145.426 Balance 42.402 145.426 Weight 74.389 kg Intake: Intake, IV Titration 42.402 145.426 Amount Heparin Sod,Pork in 0.45% 42.402 145.426 NaCl 25,000 unit In 0.45 % NaCl 1 250ml.bag @ 18 UNITS/KG/HR 13.39 mls/hr IV .[id number] [facility] Rx#: [id number] Other: Voiding Method Toilet # Voids 2 2 - Exam GENERAL EXAM: Alert, 68-year-old male patient, on room air, comfortable in no apparent distress. HEAD: Normocephalic. EYES: Normal reaction of pupils, equal size. NOSE: Clear with pink turbinates. THROAT: No erythema or exudates. NECK: No masses, no JVD. CHEST: No chest wall deformity. LUNGS: Equal air entry with crackles in the right lung base. CVS: S1 and S2 normal with no audible murmur, regular rhythm. ABDOMEN: No hepatosplenomegaly, normal bowel sounds, no guarding or rigidity. SPINE: No scoliosis or deformity SKIN: No rashes CENTRAL NERVOUS SYSTEM: No focal deficits, tone is normal in all 4 extremities. EXTREMITIES: There is no peripheral edema. No clubbing, no cyanosis. Peripheral pulses are intact. - Labs CBC & Chem 7: 09/30/23 03:46 09/30/23 03:46 Labs: Abnormal Lab Results - Last 24 Hours (Table) 09/29/23 09/29/23 09/29/23 Range/Units 12:49 14:03 17:39 WBC (4.50-10.00) X 10*3/uL RBC (4.40-5.60) X 10*6/uL Hgb (13.0-17.0) g/dL Hct (39.6-50.0) % RDW (11.5-14.5) % Neutrophils # (1.80-7.70) X 10*3/uL Monocytes # (0.20-1.00) X 10*3/uL APTT 146.7 H* (22.0-30.0) sec Anion Gap (4.00-12.00) mmol/L POC Glucose (mg/dL) 140 H 233 H (70-110) mg/dL Calcium (8.7-10.3) mg/dL Total Bilirubin (0.3-1.2) mg/dL AST (14-35) U/L ALT (10-49) U/L Alkaline Phosphatase (41-126) U/L Total Protein (6.2-8.2) g/dL Albumin (3.8-4.9) g/dL Albumin/Globulin Ratio (1.60-3.17) Ratio 09/29/23 09/29/23 09/30/23 Range/Units 20:22 20:50 03:46 WBC 10.68 H (4.50-10.00) X 10*3/uL RBC 4.08 L (4.40-5.60) X 10*6/uL Hgb 11.6 L (13.0-17.0) g/dL Hct 35.2 L (39.6-50.0) % RDW 17.3 H (11.5-14.5) % Neutrophils # 7.94 H (1.80-7.70) X 10*3/uL Monocytes # 1.16 H (0.20-1.00) X 10*3/uL APTT 72.6 H (22.0-30.0) sec Anion Gap (4.00-12.00) mmol/L POC Glucose (mg/dL) 155 H (70-110) mg/dL Calcium (8.7-10.3) mg/dL Total Bilirubin (0.3-1.2) mg/dL AST (14-35) U/L ALT (10-49) U/L Alkaline Phosphatase (41-126) U/L Total Protein (6.2-8.2) g/dL Albumin (3.8-4.9) g/dL Albumin/Globulin Ratio (1.60-3.17) Ratio 09/30/23 09/30/23 09/30/23 Range/Units 03:46 03:46 06:05 WBC (4.50-10.00) X 10*3/uL RBC (4.40-5.60) X 10*6/uL Hgb (13.0-17.0) g/dL Hct (39.6-50.0) % RDW (11.5-14.5) % Neutrophils # (1.80-7.70) X 10*3/uL Monocytes # (0.20-1.00) X 10*3/uL APTT 85.9 H (22.0-30.0) sec Anion Gap 12.90 H (4.00-12.00) mmol/L POC Glucose (mg/dL) 68 L (70-110) mg/dL Calcium 8.6 L (8.7-10.3) mg/dL Total Bilirubin 1.8 H (0.3-1.2) mg/dL AST 79 H (14-35) U/L ALT 85 H (10-49) U/L Alkaline Phosphatase 456 H (41-126) U/L Total Protein 5.8 L (6.2-8.2) g/dL Albumin 3.3 L (3.8-4.9) g/dL Albumin/Globulin Ratio 1.32 L (1.60-3.17) Ratio Assessment and Plan Assessment: Right perihilar masslike consolidation, right pleural effusion measuring less than 5 cm. Plan is for bronchoscopy with biopsies today September 30, 2023 Subacute cough, refractory to multiple outpatient treatments of antibiotics and steroids Acute dyspnea though maintaining O2 saturations in the 90s on room air Unintentional 20 pound weight loss, over 2-month timeframe Chronic obstructive pulmonary disease Former tobacco dependence, quitting approximately 1 month ago, with 12-[id number]-mocc history Elevated liver enzymes, unknown significance, ultrasound of liver reveals findings suspicious for portal venous thrombosis. Underlying heterogeneity could be related to underlying hepatocellular disease. CT scan of the abdomen revealed a portal vein thrombosis extending from the main portal vein into the left portal vein. The right portal vein remains patent. No involving the superior mesenteric vein. Remains on a heparin drip Hypertension History of hyperlipidemia Diabetes mellitus type 2 Plan: The patient was seen and evaluated Chest x-ray, labs and medications reviewed CT scan of the abdomen pelvis reviewed Ultrasound of the liver reviewed Ultrasound of the chest reviewed Plan is for bronchoscopy with biopsies today Heparin will be on hold 2 hours prior Remains stable and on room air This patient was seen independently by the pulmonary nurse practitioner addressing pulmonary issues I have personally seen and examined the patient, performed the documentation and the assessment and plan as written. Number of minutes spent on the visit: 25.
--- NOTE | 2023-09-30 11:13 | P.PN ---
Subjective Progress Note Date: 09/30/23 Subjective: Patient seen at bedside. No significant overnight events. Patient reports this morning feeling slightly better than when he previous arrived last night. Pertinent positives and negatives discussed above, a complete review of systems was preformed and all the other sytems were negative. Vitals Signs Reveiwed. Vital signs reviewed General: non toxic, no distress, appears at stated age, normal weight Derm: no unusual rashes/lesions, warm Head: atraumatic, normocephalic, symmetric Eyes: EOMI, no lid lag, anicteric sclera, pupils equal round reactive to light Neck: No cervical lymphadenopathy, trachea midline, supple Mouth: no lip lesion, mucus membranes moist Cardiovascular: S1S2 reg, no murmur, positive dorsalis pedis pulse bilateral, no edema Lungs: Bilateral expiratory rhonchi with diffuse wheezing, no rales, no accessory muscle use Abdominal: soft, nontender to palpation, no guarding Ext: muscle strength 5 out of 5 in all 4 extremities grossly, no gross muscle atrophy, no contractures, Neuro: CN II-XI grossly intact, no gross focal neuro deficits Psych: Alert, oriented, appropriate affect Data Reveiwed Today: Patient Labs: Sodium 139, potassium 3.9, anion gap 12.9, calcium 8.6, total bilirubin 1.8, AST 79, ALT 85, alkaline phosphatase 456, albumin 3.3, WBC 10.68, hemoglobin 11.6, and MCV 86.3. Imaging: CT abdomen pelvis: Portal vein thrombosis-the main portal vein into the left portal vein. Right portal vein remains patent. Assessment/Plan: 68 -year-old male with COPD not on home oxygen quit smoking 1 month ago presents to the ER with progressively worsening shortness of breath associated with productive cough and unintentional weight loss since 2 months. Patient admitted for workup and testing of worsening shortness of breath and unintentional weight loss. Acute on chronic bronchitis with failed outpatient therapy Started on DuoNebs [id number] and as needed Resume albuterol inhaler 2 puffs RT every 4 hours Ordered oxygen therapy with 2 L via nasal cannula, currently saturating well on room air prednisone PO 40 mg daily patient received multiple courses of oral steroids and antibiotics as OP over the past 8 weeks, will hold off antibiotics for now After discussing with pulmonology, patient planned to undergo bronchoscopy and biopsy tomorrow (09/29), but will first check in with vascular and general surgery in regards to potential clot in MPV and LPV and will also check in with general surgery in regards to patient's cholelithiasis with potential cholecystitis. Bronchoscopy scheduled for today, will check with pulmonology for when heparin drip can be restarted Portal vein thrombosis: CTAP confirms main and left portal vein thrombosis, will follow-up with vascular recommendations Discussed with vascular surgery, no intervention required at this time, they recommended consulting hematology for recommendations on anticoagulation for portal vein thrombosis Cholelithiasis with potential cholecystitis: On liver ultrasound gallbladder wall was thickened with fluid seen adjacent to it. 2 mobile echogenic foci visualized with largest equaling 1.3 cm, CBD was within normal limits. Consulted general surgery, will follow-up with their recommendations Started on Zosyn IV 3.375 g 3 times daily. Right midlung mass, benign versus malignant mass Chest x-ray shows right midlung consolidation possibly representing underlying mass Pulmonology planning for bronchoscopy today. Normocytic anemia Hemoglobin 12.4 (baseline), hematocrit 37.9, MCV 89.1 Continue monitor hemoglobin level Currently no active bleeding. Coagulopathy Elevated PT 13.7, Elevated INR 1.3, aPTT 23.2 No active bleeding compliance monitor PT/INR Hyponatremia: Resolved Sodium increased from 1 36-1 39 this morning. Ordered normal saline IV at 50 cc/h Continue monitor sodium levels with an incidental finding of lung mass, there is some suspicion of SIADH, monitor Na level closely if it worsens while on normal saline [id number] diabetes mellitus Continue sliding scale. A1c 6.2 Continue Accu-Cheks Elevated LFTs, suspected secondary to underlying malignancy and mets versus potential cholecystitis Total bilirubin 2.9, AST 93, ALT 90, alkaline phos 498, total protein 6.2, albumin 3.3 Continue monitor CMP BPH: Continue doxazosin 4 mg p.o. daily. And Proscar 5 mg p.o. daily Hypertension: Continue amlodipine 5 mg p.o. daily. And lisinopril 40 mg p.o. daily F NS at 1000 mL IV 50 MLS per hour E none N regular diet, n.p.o. after midnight A normally ambulates without assistance at home DVT ppx: Heparin drip IV 18 units/KG/hour Code Status: Full code Anticipated discharge place: Pending clinical course Anticipated discharge time: Pending clinical course I have seen and evaluated the patient today. Discussed with the resident and agree with the residents subjective and objective as documented in the resident's note. The assessment and plan was discussed and outlined as below. Patient continues to report cough productive of sputum. CTA confirming portal vein thrombosis. Vascular recommends no surgical intervention. Plans to hold heparin infusion 2 hours prior to bronchoscopy planned for today. Can likely transition to NOAC after procedure, Hematology consulted. Surgery recommends outpatient follow up for cholecystitis. Right perihilar mass like consolidation: Pulmonary plans for bronchoscopy today. Suspicious for malignancy given weight loss and history of heavy smoking. He has also failed multiple rounds of PO antibiotics. Procal 0.18. Azithromycin 500 mg PO QD x 3 days by Pulmonary. Continue Zosyn as below. Transaminitis: Obstructive likely related to below. Possible portal vein thrombosis seen on Liver US: Vascular Surgery recommends no surgical intervention and Hematology consult for anticoagulation plan. Possible cholecystitis: Zosyn 3.375 g IV TID. Surgery recommends outpatient follow up. Acute on chronic COPD exacerbation: Prednisone 40 mg PO QD. DuoNeb scheduled and PRN for SOB/wheezing. Symbicort 1 INH BID. Normocytic anemia: No signs of bleeding. Trend. Supratherapeutic INR: Likely related to livery dysfunction. Diabetes mellitus with hypoglycemia: Accuchecks ACHS with Hypoglycemic precau tions. Hypertension: Amlodipine 5 mg PO QD. Lisinopril 40 mg PO QD. BPH: Doxazosin 4 mg PO QD. Proscar 5 mg PO QD. Heparin drip for DVT prophylaxis. Protonix PO for GI prophylaxis. FULL CODE. Objective - Vital Signs Vital signs: Vital Signs Temp 98.1 F 09/30/23 02:31 Pulse 76 09/30/23 02:31 Resp 15 09/30/23 02:31 BP 150/72 09/30/23 02:31 Pulse Ox 96 09/30/23 02:31 FiO2 Intake & Output 09/29/23 09/30/23 09/30/23 18:59 06:59 18:59 Intake Total 42.402 145.426 Balance 42.402 145.426 Weight 74.389 kg Intake: Intake, IV Titration 42.402 145.426 Amount Heparin Sod,Pork in 0.45% 42.402 145.426 NaCl 25,000 unit In 0.45 % NaCl 1 250ml.bag @ 18 UNITS/KG/HR 13.39 mls/hr IV .[id number] ON LICENSE OF [facility] Rx#: [id number] Other: # Voids 2 2 - Labs CBC & Chem 7: 10/01/23 06:55 10/01/23 06:55 Labs: Abnormal Lab Results - Last 24 Hours (Table) 09/29/23 09/29/23 09/29/23 Range/Units 03:49 03:49 03:49 APTT (22.0-30.0) sec Anion Gap 12.40 H (4.00-12.00) mmol/L Glucose 55 L (70-110) mg/dL POC Glucose (mg/dL) (70-110) mg/dL Hemoglobin A1c 6.2 H (<=6.0) % Calcium 8.6 L (8.7-10.3) mg/dL Total Bilirubin 2.2 H (0.3-1.2) mg/dL AST 93 H (14-35) U/L ALT 90 H (10-49) U/L Alkaline Phosphatase 498 H (41-126) U/L Total Protein 6.0 L (6.2-8.2) g/dL Albumin 3.3 L (3.8-4.9) g/dL Albumin/Globulin Ratio 1.22 L (1.60-3.17) Ratio Procalcitonin 0.18 H (0.02-0.09) ng/mL 09/29/23 09/29/23 09/29/23 Range/Units 12:49 14:03 17:39 APTT 146.7 H* (22.0-30.0) sec Anion Gap (4.00-12.00) mmol/L Glucose (70-110) mg/dL POC Glucose (mg/dL) 140 H 233 H (70-110) mg/dL Hemoglobin A1c (<=6.0) % Calcium (8.7-10.3) mg/dL Total Bilirubin (0.3-1.2) mg/dL AST (14-35) U/L ALT (10-49) U/L Alkaline Phosphatase (41-126) U/L Total Protein (6.2-8.2) g/dL Albumin (3.8-4.9) g/dL Albumin/Globulin Ratio (1.60-3.17) Ratio Procalcitonin (0.02-0.09) ng/mL 09/29/23 09/29/23 09/30/23 Range/Units 20:22 20:50 03:46 APTT 72.6 H 85.9 H (22.0-30.0) sec Anion Gap (4.00-12.00) mmol/L Glucose (70-110) mg/dL POC Glucose (mg/dL) 155 H (70-110) mg/dL Hemoglobin A1c (<=6.0) % Calcium (8.7-10.3) mg/dL Total Bilirubin (0.3-1.2) mg/dL AST (14-35) U/L ALT (10-49) U/L Alkaline Phosphatase (41-126) U/L Total Protein (6.2-8.2) g/dL Albumin (3.8-4.9) g/dL Albumin/Globulin Ratio (1.60-3.17) Ratio Procalcitonin (0.02-0.09) ng/mL 09/30/23 Range/Units 06:05 APTT (22.0-30.0) sec Anion Gap (4.00-12.00) mmol/L Glucose (70-110) mg/dL POC Glucose (mg/dL) 68 L (70-110) mg/dL Hemoglobin A1c (<=6.0) % Calcium (8.7-10.3) mg/dL Total Bilirubin (0.3-1.2) mg/dL AST (14-35) U/L ALT (10-49) U/L Alkaline Phosphatase (41-126) U/L Total Protein (6.2-8.2) g/dL Albumin (3.8-4.9) g/dL Albumin/Globulin Ratio (1.60-3.17) Ratio Procalcitonin (0.02-0.09) ng/mL
[2023-09-30 11:48] LABS: Glucose,Whole Blood 97 mg/dL (70-110)
[2023-09-30] MEDS ORDERED: PROPOFOL 10 MG/ML 20 ML VIAL IV ONE (12:29)
[2023-09-30] MEDS ORDERED: MIDAZOLAM 2 MG/2 ML VIAL ONE (12:29)
[2023-09-30] MEDS ORDERED: SUCCINYLCHOLINE CHLORIDE 200 MG/10 ML VIAL IV ONE (12:29)
[2023-09-30] MEDS ORDERED: fentaNYL (PF) 50 MCG/ML 2 ML AMP ONE (12:29)
[2023-09-30] MEDS ORDERED: LIDOCAINE 4% LTA KIT (4 ML) TOPICAL ONE (12:29)
[2023-09-30] MEDS: IV FLUID CONTINUATION 300 ML IV ONE (12:35)
[2023-09-30] MEDS: SODIUM CHLORIDE 0.9% 1,000 ML IV ONE (13:10)
--- NOTE | 2023-09-30 13:42 | PCN ---
PROCEDURE NOTE PULMONARY/CRITICAL CARE PROCEDURE NOTE: PROCEDURES PERFORMED: Bronchoscopy, airway examination, therapeutic lavage, BAL right middle lobe, brushes right middle lobe, needle biopsies of the oblique mindy the right upper lobe from the bronchus intermedius and also needle biopsies of the main mindy and endobronchial biopsies of the right upper lobe and right middle lobe. PREOPERATIVE DIAGNOSIS: Lung mass, rule out lung cancer. POSTOPERATIVE DIAGNOSIS: Lung mass, rule out lung cancer. ANESTHESIA: Provided general endotracheal anesthesia. There was informed consent and universal timeout. The patient's procedure was done in room #1 [facility]. JOINT FINISHER: Dr. Martines. FIRST FINAL ASSEMBLY AND PACKING SUPERVISOR: Dr. Lotus Pantoja. ADDITIONAL FINAL ASSEMBLY AND PACKING SUPERVISOR: Dr. Patel and Dr. Maxwell. DESCRIPTION OF PROCEDURE: After the patient was sedated under the effects of general anesthesia, the bronchoscope was inserted, through the bronchoscope adapter connected to the endotracheal tube. We did a thorough evaluation of the left lung. The left upper lobe and its 2 segments, the lingula and its 2 segments, and left lower lobe and its 4 segments were all found to be normal. Of note, the tracheal mindy was thickened and broad. It was not sharp. Going into the right upper lobe, the right upper lobe appeared to have some mucosal abnormality. The oblique mindy itself was also thickened, and abnormal in appearance. It was not sharp. Additionally, there was endobronchial and mucosal disease and extending into the right middle lobe, and less so into the left lower lobe. There were some abnormalities in the medial basal segment of the right lower lobe, and that segment could not be entered. Next, after thorough evaluation, we did brushes to the right middle lobe. We also did multiple endobronchial biopsies to the right upper lobe and right middle lobe. Finally, we did needle biopsies of the main mindy, and oblique mindy. There was minimal bleeding. The patient tolerated the procedure well. We ensured that there was hemostasis, before the bronchoscope was withdrawn. The patient was stable throughout the procedure according to anesthesia. The bronchoscope was withdrawn. The patient will be recovered. There was no immediate complication and all the specimens will be sent to the laboratory for analysis. MMODL / IJN: [id number] /
[2023-09-30] MEDS: guaiFENesin-Coden 100-10MG/5ML 10 ML CUP PO PRN ×2 (14:37→20:37)
--- NOTE | 2023-09-30 16:18 | P.PN ---
Subjective Progress Note Date: 09/30/23 CHIEF COMPLAINT: Cholecystitis HISTORY OF PRESENT ILLNESS: The patient is a 68-year-old admitted for chronic cough. Recent additional findings demonstrated perihilar mass. Diagnostic studies demonstrated cholecystitis. General surgery is following for cholecystitis. Patient is sitting in bed comfortably. Denies any abdominal pain. ROS: No reports of nausea and vomiting. No fevers or chills. No new chest pain. PHYSICAL EXAM: VITAL SIGNS: Reviewed CONSTITUTIONAL: Well developed and in no acute distress. EYES: Conjuctivae without sclera icterus. Extraocular movements grossly intact. HEAD, EARS, NOSE, THROAT: Moist buccal mucosa. Head is atraumatic, normocephalic. Hears conversational speech. No nasal drainage. RESPIRATORY: Non-labored respirations and equal bilateral excursions. CARDIOVASCULAR: Palpable 2+ radial pulses. ABDOMEN: MUSCULOSKELETAL: No gross deformity of the lower extremities noted. No clubbing. No cyanosis. SKIN: Good skin turgor. Well perfused. NEUROLOGIC: Cranial nerves II through XII grossly intact. No focal or lateralizing signs. PSYCH: Appropriate affect. Alert and oriented to person, place and time. CLINICAL LABS: Reviewed. WBC elevated 9.0-10.68, leukocytosis. ASSESSMENT: 1. Gallstones with cholecystitis 2. Portal vein thrombosis 3. Chronic cough 4. Leukocytosis PLAN: 1. Patient has multiple medical comorbidities including portal vein thrombosis and is asymptomatic. 2. No acute surgical invention at this time. Objective - Vital Signs Vital signs: Vital Signs Temp 98.0 F 09/30/23 07:00 Pulse 64 09/30/23 14:00 Resp 16 09/30/23 14:00 BP 98/50 09/30/23 13:42 Pulse Ox 96 09/30/23 13:42 FiO2 Intake & Output 09/29/23 09/30/23 09/30/23 18:59 06:59 18:59 Intake Total 42.402 145.426 600 Balance 42.402 145.426 600 Weight 74.389 kg Intake: IV 600 Intake, IV Titration 42.402 145.426 Amount Heparin Sod,Pork in 0.45% 42.402 145.426 NaCl 25,000 unit In 0.45 % NaCl 1 250ml.bag @ 18 UNITS/KG/HR 13.39 mls/hr IV .[id number] [facility] Rx#: [id number] Other: Voiding Method Toilet # Voids 2 2 3 - Labs CBC & Chem 7: 10/01/23 06:55 10/01/23 06:55 Labs: Abnormal Lab Results - Last 24 Hours (Table) 09/29/23 09/29/23 09/29/23 Range/Units 17:39 20:22 20:50 WBC (4.50-10.00) X 10*3/uL RBC (4.40-5.60) X 10*6/uL Hgb (13.0-17.0) g/dL Hct (39.6-50.0) % RDW (11.5-14.5) % Neutrophils # (1.80-7.70) X 10*3/uL Monocytes # (0.20-1.00) X 10*3/uL APTT 72.6 H (22.0-30.0) sec Anion Gap (4.00-12.00) mmol/L POC Glucose (mg/dL) 233 H 155 H (70-110) mg/dL Calcium (8.7-10.3) mg/dL Total Bilirubin (0.3-1.2) mg/dL AST (14-35) U/L ALT (10-49) U/L Alkaline Phosphatase (41-126) U/L Total Protein (6.2-8.2) g/dL Albumin (3.8-4.9) g/dL Albumin/Globulin Ratio (1.60-3.17) Ratio 09/30/23 09/30/23 09/30/23 Range/Units 03:46 03:46 03:46 WBC 10.68 H (4.50-10.00) X 10*3/uL RBC 4.08 L (4.40-5.60) X 10*6/uL Hgb 11.6 L (13.0-17.0) g/dL Hct 35.2 L (39.6-50.0) % RDW 17.3 H (11.5-14.5) % Neutrophils # 7.94 H (1.80-7.70) X 10*3/uL Monocytes # 1.16 H (0.20-1.00) X 10*3/uL APTT 85.9 H (22.0-30.0) sec Anion Gap 12.90 H (4.00-12.00) mmol/L POC Glucose (mg/dL) (70-110) mg/dL Calcium 8.6 L (8.7-10.3) mg/dL Total Bilirubin 1.8 H (0.3-1.2) mg/dL AST 79 H (14-35) U/L ALT 85 H (10-49) U/L Alkaline Phosphatase 456 H (41-126) U/L Total Protein 5.8 L (6.2-8.2) g/dL Albumin 3.3 L (3.8-4.9) g/dL Albumin/Globulin Ratio 1.32 L (1.60-3.17) Ratio 09/30/23 09/30/23 Range/Units 06:05 10:36 WBC (4.50-10.00) X 10*3/uL RBC (4.40-5.60) X 10*6/uL Hgb (13.0-17.0) g/dL Hct (39.6-50.0) % RDW (11.5-14.5) % Neutrophils # (1.80-7.70) X 10*3/uL Monocytes # (0.20-1.00) X 10*3/uL APTT 55.4 H (22.0-30.0) sec Anion Gap (4.00-12.00) mmol/L POC Glucose (mg/dL) 68 L (70-110) mg/dL Calcium (8.7-10.3) mg/dL Total Bilirubin (0.3-1.2) mg/dL AST (14-35) U/L ALT (10-49) U/L Alkaline Phosphatase (41-126) U/L Total Protein (6.2-8.2) g/dL Albumin (3.8-4.9) g/dL Albumin/Globulin Ratio (1.60-3.17) Ratio
[2023-09-30 16:52] LABS: Glucose,Whole Blood 204 mg/dL (70-110)
[2023-09-30] MEDS ORDERED: guaiFENesin-Coden 100-10MG/5ML 10 ML CUP PO PRN (18:36)
[2023-09-30 19:47] LABS: Glucose,Whole Blood 164 mg/dL (70-110)
[2023-09-30] MEDS: HEPARIN SODIUM 1,000 UN/ML (10ML VL) IV PRN (22:55)
[2023-10-01] MEDS ORDERED: BENZONATATE 100 MG CAP PO PRN (00:37)
[2023-10-01 04:41] LABS: Appearance,BF Bloody (Clear); RBC, Body Fluid 767500 /UL (0-2000)
[2023-10-01 05:56] LABS: Glucose,Whole Blood 102 mg/dL (70-110)
[2023-10-01] MEDS: IPRATROPIUM-ALBUTEROL 3 ML NEB INHALATION STA (06:03)
[2023-10-01 07:32] LABS: Anisocytosis Slight; HGB 11.6 gm/dL (13.0-17.5); Hypochromasia Marked; MCHC 31.2 g/dL (31.0-37.0); MCV 92.9 fL (80.0-100.0); Mean Platelet Volume 8.1; Platelet Count 253 k/uL (150-450); RBC 3.98 m/uL (4.30-5.90); RDW 16.3 % (11.5-15.5); WBC 15.2 k/uL (3.8-10.6)
[2023-10-01 07:49] LABS: ALT 81 U/L (4-49); AST 89 U/L (17-59); African American GFR (CKD) >90 (>60 ml/min/1.73 sqM); Alkaline Phosphatase 399 U/L (38-126); Anion Gap 6 mmol/L; Blood Urea Nitrogen 13 mg/dL (9-20); Calcium 8.7 mg/dL (8.4-10.2); Carbon Dioxide 22 mmol/L (22-30); Chloride 108 mmol/L (98-107); Globulin 2.9 g/dL; Glucose 103 mg/dL (74-99); Non-African American GFR(CKD) >90 (>60 ml/min/1.73 sqM); Potassium 4.2 mmol/L (3.5-5.1); Sodium 136 mmol/L (137-145); Total Bilirubin 2.9 mg/dL (0.2-1.3); Total Protein 5.9 g/dL (6.3-8.2)
--- NOTE | 2023-10-01 07:55 | P.CONS ---
History of Present Illness - Reason for Consult Consult date: 09/30/23 portal vein thrombosis, possible lung mass Requesting physician: Gilma Tracy - Chief Complaint SOB, cough - History of Present Illness Patient is a 68-year-old male who presented to emergency room with complaints of worsening shortness of breath and cough over the last 2 months. He reports cough is productive with white-yellow sputum. Denies hemoptysis. Also re porting approximate 20 pound weight loss over the last 8 weeks. Patient has history of basal cell carcinoma and underwent surgical excision in May 2023. Also has history of nicotine dependence smoking 1/2 pack for 25 years. He quit smoking 1 month ago. On admission CT chest with contrast showed right upper lobe consolidation with volume loss and interstitial edema in the right lung. Moderate right pleural effusion. Ultrasound of liver showed liver is heterogeneous with findings suspicious for portal vein thrombosis. Gallbladder wall is thickened with small amount of pericholecystic fluid and the gallstone. He subsequently had CT abdomen pelvis with contrast showing portal vein thro mbosis extending from the main portal vein into the left portal vein. Minimal intra-abdominal volume abdominal and pelvic ascites. Right pleural effusion. CBC showing WBC 10.6, hemoglobin 11.6, platelets 283,000. Creatinine 0.8, GFR 98. On admission bilirubin elevated at 2.9, with transaminitis noted. Patient has been started on IV antibiotics, azithromycin and Zosyn. Heparin drip started for portal vein thrombosis. He is scheduled today to undergo bronchoscopy. Review of Systems 10 point ROS is negative except as stated in the HPI Past Medical History Past Medical History: Asthma, COPD, Diabetes Mellitus, GERD/Reflux, Hyperlipidemia, Hypertension, Prostate Disorder Additional Past Medical History / Comment(s): arthritis, History of Any Multi-Drug Resistant Organisms: None Reported Past Surgical History: Hernia Repair Past Anesthesia/Blood Transfusion Reactions: No Reported Reaction Additional Past Anesthesia/Blood Transfusion Reaction / Comm: no blood transfusion Past Psychological History: Anxiety, Depression Smoking Status: Former smoker Past Alcohol Use History: None Reported Past Drug Use History: Marijuana - Past Family History Mother Family Medical History: No Reported History Medications and Allergies Home Medications Medication Instructions Recorded Confirmed Type Albuterol Sulfate [Proair Hfa] 2 puff INHALATION RT-Q4H PRN 08/04/14 09/28/23 History Aspirin 81 mg PO DAILY 08/04/14 09/28/23 History Doxazosin Mesylate [Cardura] 4 mg PO DAILY 08/04/14 09/28/23 History Enalapril [Vasotec] 20 mg PO DAILY 08/04/14 09/28/23 History Fenofibrate 160 mg PO DAILY 08/04/14 09/28/23 History Finasteride [Proscar] 5 mg PO DAILY 08/04/14 09/28/23 History Multivitamin [Men's Multi-Vitamin] 1 tab PO DAILY 08/04/14 09/28/23 History metFORMIN HCL ER [Glucophage XR] 1,000 mg PO BID 08/04/14 09/28/23 History buPROPion HCL [Wellbutrin XL] 300 mg PO DAILY 05/10/15 09/28/23 History L.acidoph,Paracasei, B.lactis 1 cap PO DAILY 01/05/23 09/28/23 History [Probiotic] amLODIPine [Norvasc] 5 mg PO DAILY 01/05/23 09/28/23 History Dulaglutide [Trulicity] 1.5 mg SQ WE 09/28/23 09/28/23 History Simvastatin [Zocor] 20 mg PO HS 09/28/23 09/28/23 History glipiZIDE [glipiZIDE ER] 10 mg PO DAILY 09/28/23 09/28/23 History traZODone HCL [Desyrel] 50 mg PO HS 09/28/23 09/28/23 History Apixaban [Eliquis Starter Pack 5 - 10 mg PO DIRECTED 30 Days 09/30/23 Rx (for VTE)] #1 each Allergies Allergy/AdvReac Type Severity Reaction Status Date / Time No Known Allergies Allergy Verified 09/28/23 18:38 Physical Exam Vitals: Vital Signs Temp Pulse Pulse Resp BP BP Pulse Ox 09/30/23 13:42 64 16 98/50 96 09/30/23 13:27 68 16 94/50 98 09/30/23 13:12 82 16 107/53 98 09/30/23 09:12 84 09/30/23 09:05 95 09/30/23 09:03 78 09/30/23 08:00 62 16 09/30/23 07:00 98.0 F 62 16 138/76 95 09/30/23 02:31 98.1 F 76 15 150/72 96 09/29/23 20:05 82 09/29/23 19:53 84 09/29/23 19:36 98.7 F 81 15 126/73 99 09/29/23 16:47 86 09/29/23 16:35 82 Intake and Output 09/29/23 09/30/23 09/30/23 22:59 06:59 14:59 Intake Total 100.796 87.032 600 Balance 100.796 87.032 600 Intake: IV 600 Intake, IV Titration 100.796 87.032 Amount Heparin Sod,Pork in 0.45% 100.796 87.032 NaCl 25,000 unit In 0.45 % NaCl 1 250ml.bag @ 18 UNITS/KG/HR 13.39 mls/hr IV .[id number] [facility] Rx#: [id number] Other: Voiding Method Toilet # Voids 1 2 3 Weight 74.389 kg - Constitutional General appearance: average body habitus, no acute distress - EENT Eyes: anicteric sclerae, EOMI ENT: hearing grossly normal - Respiratory diminished and course throughout right lung field Respiratory: right: diminished - Cardiovascular Rhythm: regular - Gastrointestinal General gastrointestinal: soft, no tenderness - Integumentary Integumentary: no cyanotic, no jaundiced - Neurologic Neurologic: CNII-XII intact - Musculoskeletal Musculoskeletal: strength equal bilaterally - Psychiatric Psychiatric: A&O x's 3 Results CBC & Chem 7: 09/30/23 03:46 09/30/23 03:46 Labs: Abnormal Lab Results - Last 24 Hours (Table) 09/29/23 09/29/23 09/29/23 Range/Units 14:03 17:39 20:22 WBC (4.50-10.00) X 10*3/uL RBC (4.40-5.60) X 10*6/uL Hgb (13.0-17.0) g/dL Hct (39.6-50.0) % RDW (11.5-14.5) % Neutrophils # (1.80-7.70) X 10*3/uL Monocytes # (0.20-1.00) X 10*3/uL APTT 146.7 H* 72.6 H (22.0-30.0) sec Anion Gap (4.00-12.00) mmol/L POC Glucose (mg/dL) 233 H (70-110) mg/dL Calcium (8.7-10.3) mg/dL Total Bilirubin (0.3-1.2) mg/dL AST (14-35) U/L ALT (10-49) U/L Alkaline Phosphatase (41-126) U/L Total Protein (6.2-8.2) g/dL Albumin (3.8-4.9) g/dL Albumin/Globulin Ratio (1.60-3.17) Ratio 09/29/23 09/30/23 09/30/23 Range/Units 20:50 03:46 03:46 WBC 10.68 H (4.50-10.00) X 10*3/uL RBC 4.08 L (4.40-5.60) X 10*6/uL Hgb 11.6 L (13.0-17.0) g/dL Hct 35.2 L (39.6-50.0) % RDW 17.3 H (11.5-14.5) % Neutrophils # 7.94 H (1.80-7.70) X 10*3/uL Monocytes # 1.16 H (0.20-1.00) X 10*3/uL APTT (22.0-30.0) sec Anion Gap 12.90 H (4.00-12.00) mmol/L POC Glucose (mg/dL) 155 H (70-110) mg/dL Calcium 8.6 L (8.7-10.3) mg/dL Total Bilirubin 1.8 H (0.3-1.2) mg/dL AST 79 H (14-35) U/L ALT 85 H (10-49) U/L Alkaline Phosphatase 456 H (41-126) U/L Total Protein 5.8 L (6.2-8.2) g/dL Albumin 3.3 L (3.8-4.9) g/dL Albumin/Globulin Ratio 1.32 L (1.60-3.17) Ratio 09/30/23 09/30/23 09/30/23 Range/Units 03:46 06:05 10:36 WBC (4.50-10.00) X 10*3/uL RBC (4.40-5.60) X 10*6/uL Hgb (13.0-17.0) g/dL Hct (39.6-50.0) % RDW (11.5-14.5) % Neutrophils # (1.80-7.70) X 10*3/uL Monocytes # (0.20-1.00) X 10*3/uL APTT 85.9 H 55.4 H (22.0-30.0) sec Anion Gap (4.00-12.00) mmol/L POC Glucose (mg/dL) 68 L (70-110) mg/dL Calcium (8.7-10.3) mg/dL Total Bilirubin (0.3-1.2) mg/dL AST (14-35) U/L ALT (10-49) U/L Alkaline Phosphatase (41-126) U/L Total Protein (6.2-8.2) g/dL Albumin (3.8-4.9) g/dL Albumin/Globulin Ratio (1.60-3.17) Ratio CT scan - abdomen: report reviewed CT scan - chest: report reviewed CT scan - pelvis: report reviewed US - abdomen: report reviewed Assessment and Plan (1) Portal vein thrombosis Current Visit: Yes Status: Acute Priority: High Code(s): I81 - PORTAL VEIN THROMBOSIS SNOMED Code(s): 09613980 (2) Lung consolidation Current Visit: Yes Status: Acute Priority: High Code(s): J18.1 - LOBAR PNEUMONIA, UNSPECIFIED ORGANISM SNOMED Code(s): 63255817 (3) Shortness of breath Current Visit: Yes Status: Acute Priority: High Code(s): R06.02 - SHORTNESS OF BREATH SNOMED Code(s): 349469908 Plan: Pneumonia, r/o lung mass: Presented to emergency room with complaints of worsening shortness of breath and cough over the last 2 months. He reports cough is productive with white-yellow sputum. Denies hemoptysis. Also reporting approximate 20 pound weight loss over the last 8 weeks. Patient has history of basal cell carcinoma and underwent surgical excision May 2023. Also has history of nicotine dependence smoking 1/2 pack for 25 years. He quit smoking 1 month ago. -On admission CT chest with contrast showed right upper lobe consolidation with volume loss and interstitial edema in the right lung. Moderate right pleural effusion. -Azithromycin and Zosyn started -Pulmonology following, bronchoscopy planned for today Discussed CT findings with patient, and concerns for infectious process with possible underlying malignancy. All questions and concerns were answered. Will f/u on pathology Portal vein thrombosis: -CBC showing WBC 10.6, hemoglobin 11.6, platelets 283,000. Creatinine 0.8, GFR 98. On admission bilirubin elevated at 2.9, with transaminitis noted -Ultrasound of liver showed liver is heterogeneous with findings suspicious for portal vein thrombosis. Gallbladder wall is thickened with small amount of pericholecystic fluid and the gallstone. He subsequently had CT abdomen pelvis with contrast showing portal vein thrombosis extending from the main portal vein into the left portal vein. Minimal intra-abdominal volume abdominal and pelvic ascites. -Heparin drip started -Vascular and general surgery consulted -Will obtain Jak2 V617f and Jak2 exon 12-15, to r/o MPN. Will also discuss possible hypercoaguable workup in outpt setting -Patient will need to be on anticoagulation for at least 6 months, but if pathology is positive for malignancy, anticoagulation would need to be continued until cancer is adequately treated. Will plan for outpt f/u and provide further AC recommendations -Eliquis has been sent to [facility], and consult placed to case management for prior auth attests:I have seen and examined pt, performed H&P, developed impression and plan of care. Discussed with dictator. Agree with documentation, dictated as a scribe.
--- NOTE | 2023-10-01 09:52 | P.PN ---
Subjective Progress Note Date: 10/01/23 Patient is a 68-year-old white male with past medical history significant for hypertension, hyperlipidemia, diabetes, chronic obstructive pulmonary disease, former tobacco dependence. Primary care provider is Dr. Castelan. Patient's chief complaint is a persistent cough for the last 2 months. He has been seen by multiple urgent care clinics, treated with courses of antibiotics and steroids without any significant improvement in his symptoms. He did go to his primary care provider yesterday, who directed him to the emergency department. He is complaining of a persistent cough over the last 2 months. Previously productive with yellow sputum, now non-productive. No hemoptysis. The cough has interfered with his sleeping. He is also been short of breath with minimal exertion. His rescue inhaler has not been providing much relief. He has been generally weak. Denies fevers. Denies sick contacts. He does have history of COPD. He has history of heavy tobacco dependence, quitting approximately 1 month ago. Reports [id number] smoking history. He has had also poor appetite. Endorses 20 pound weight loss over 2-month timeframe. Denies any history of cancer. Chest x-ray done arrival shows a suspicious right perihilar masslike opacity and volume loss. CBC unremarkable without leukocytosis. CMP: Sodium 136, potassium 4.3, chloride 105, serum bicarb 23, BUN 19, creatinine 0.83, glucose 137. Normal saline infusing at 50 MLS per hour. LFTs are mildly elevated. AST 97, ALT 81, ALP 407. Total bilirubin 2.9. Troponin less than 0.012. Patient is currently resting comfortably on room air. He continues to have persistent cough, which is currently nonproductive. Afebrile. Vital signs are stable. Patient will be taken down for CT of the chest tonight. The patient is seen today September 30, 2023 in follow-up on the regular medical floor. He is currently resting in bed. Awake and alert in no acute distress. He did not denies any worsening shortness of breath, cough or congestion. He is maintaining good O2 saturations in room air. He remains on normal saline at 50 MLS per hour. Continued on a heparin drip. Plan is for bronchoscopy with biopsies today. Heparin will be discontinued at 10 AM. Ultrasound of the chest revealed a right sided pleural effusion with a 4.6 cm pocket. Ultrasound of the liver revealed findings suspicious for portal venous thrombosis. Heterogeneity could be related to underlying hepatocellular disease. CAT scan of the abdomen pelvis revealed portal vein thrombosis extending from the main portal vein into the left portal vein. The right portal vein remains patent. No involvement in the superior mesenteric vein. Minimal abdominal volume of abdominal and pelvic ascites. Right pleural effusion. White count 10.6. Hemoglobin 11.6. Platelets 283. Sodium 139. Potassium 3.9. Bicarb 22. BUN 12. Creatinine 0.8. Glucose 79. He is continued on DuoNeb inhalations, Symbicort, prednisone. Antibiotics in the form of Zosyn and Zithromax. The patient is seen today October 01, 2023 in follow-up on the regular medical floor. He is awake and alert in no acute distress. Resting comfortably in bed. Still with a loose nonproductive cough. Continue good O2 saturations in the mid 90s on 2 L/min per nasal cannula. He has normal saline at 50 MLS per hour. Continued on a heparin drip. He did undergo bronchoscopy with biopsies and BAL. Cultures and cytology pending. White count 15.2. Hemoglobin 11.6. Platelets 253. Sodium 139. Potassium 4.2. Bicarb 22. BUN 13. Creatinine 0.67. Glucose 103. He remains on DuoNeb inhalations, Symbicort, prednisone taper. Antibiotics in the form of azithromycin. Robitussin and Tessalon Perles for his cough. Objective - Vital Signs Vital signs: Vital Signs Temp 98.9 F 10/01/23 07:48 Pulse 84 10/01/23 09:08 Resp 17 10/01/23 07:50 BP 149/75 10/01/23 07:48 Pulse Ox 95 10/01/23 08:51 FiO2 Intake & Output 09/30/23 10/01/23 10/01/23 18:59 06:59 18:59 Intake Total 662.172 599.069 93.499 Balance 662.172 599.069 93.499 Intake: IV 600 Intake, IV Titration 62.172 59.069 93.499 Amount Heparin Sod,Pork in 0.45% 62.172 59.069 93.499 NaCl 25,000 unit In 0.45 % NaCl 1 250ml.bag @ 18 UNITS/KG/HR 13.39 mls/hr IV .[id number] [facility] Rx#: [id number] Oral 540 Other: Voiding Method Toilet Toilet Toilet # Voids 3 1 - Exam GENERAL EXAM: Alert, 68-year-old male patient, on 2 L nasal cannula, in no apparent distress. HEAD: Normocephalic. EYES: Normal reaction of pupils, equal size. NOSE: Clear with pink turbinates. THROAT: No erythema or exudates. NECK: No masses, no JVD. CHEST: No chest wall deformity. LUNGS: Equal air entry with crackles in the right lung base. CVS: S1 and S2 normal with no audible murmur, regular rhythm. ABDOMEN: No hepatosplenomegaly, normal bowel sounds, no guarding or rigidity. SPINE: No scoliosis or deformity SKIN: No rashes CENTRAL NERVOUS SYSTEM: No focal deficits, tone is normal in all 4 extremities. EXTREMITIES: There is no peripheral edema. No clubbing, no cyanosis. Peripheral pulses are intact. - Labs CBC & Chem 7: 10/01/23 06:55 10/01/23 06:55 Labs: Abnormal Lab Results - Last 24 Hours (Table) 09/30/23 09/30/23 09/30/23 Range/Units 10:36 12:30 16:50 WBC (3.8-10.6) k/uL RBC (4.30-5.90) m/uL Hgb (13.0-17.5) gm/dL Hct (39.0-53.0) % RDW (11.5-15.5) % APTT 55.4 H (22.0-30.0) sec Sodium (137-145) mmol/L Chloride (98-107) mmol/L Glucose (74-99) mg/dL POC Glucose (mg/dL) 204 H (70-110) mg/dL Total Bilirubin (0.2-1.3) mg/dL AST (17-59) U/L ALT (4-49) U/L Alkaline Phosphatase (38-126) U/L Total Protein (6.3-8.2) g/dL Albumin (3.5-5.0) g/dL Fluid Appearance Bloody A (Clear) 09/30/23 09/30/23 10/01/23 Range/Units 19:46 22:17 06:55 WBC (3.8-10.6) k/uL RBC (4.30-5.90) m/uL Hgb (13.0-17.5) gm/dL Hct (39.0-53.0) % RDW (11.5-15.5) % APTT 35.6 H 57.4 H (22.0-30.0) sec Sodium (137-145) mmol/L Chloride (98-107) mmol/L Glucose (74-99) mg/dL POC Glucose (mg/dL) 164 H (70-110) mg/dL Total Bilirubin (0.2-1.3) mg/dL AST (17-59) U/L ALT (4-49) U/L Alkaline Phosphatase (38-126) U/L Total Protein (6.3-8.2) g/dL Albumin (3.5-5.0) g/dL Fluid Appearance (Clear) 10/01/23 10/01/23 Range/Units 06:55 06:55 WBC 15.2 H (3.8-10.6) k/uL RBC 3.98 L (4.30-5.90) m/uL Hgb 11.6 L (13.0-17.5) gm/dL Hct 37.0 L (39.0-53.0) % RDW 16.3 H (11.5-15.5) % APTT (22.0-30.0) sec Sodium 136 L (137-145) mmol/L Chloride 108 H (98-107) mmol/L Glucose 103 H (74-99) mg/dL POC Glucose (mg/dL) (70-110) mg/dL Total Bilirubin 2.9 H (0.2-1.3) mg/dL AST 89 H (17-59) U/L ALT 81 H (4-49) U/L Alkaline Phosphatase 399 H (38-126) U/L Total Protein 5.9 L (6.3-8.2) g/dL Albumin 3.0 L (3.5-5.0) g/dL Fluid Appearance (Clear) Assessment and Plan Assessment: Right perihilar masslike consolidation, right pleural effusion measuring less than 5 cm. Bronchoscopy with biopsies on September 30, 2023. Cultures and cytology pending Subacute cough, refractory to multiple outpatient treatments of antibiotics and steroids Acute dyspnea though maintaining O2 saturations in the 90s on 2 L nasal cannula Unintentional 20 pound weight loss, over 2-month timeframe Chronic obstructive pulmonary disease Former tobacco dependence, quitting approximately 1 month ago, with [id number] history Elevated liver enzymes, unknown significance, ultrasound of liver reveals findings suspicious for portal venous thrombosis. Underlying heterogeneity could be related to underlying hepatocellular disease. CT scan of the abdomen revealed a portal vein thrombosis extending from the main portal vein into the left portal vein. The right portal vein remains patent. No involving the superior mesenteric vein. Remains on a heparin drip Hypertension History of hyperlipidemia Diabetes mellitus type 2 Plan: The patient was seen and evaluated Labs and medications reviewed Biopsy results pending Anticoagulation per hematology Cleared for discharge from the pulmonary standpoint Complete a prednisone taper over 16 days Complete a course of antibiotics Continue Symbicort, albuterol HFA Follow-up with Dr. Martines in our office in 1 week This patient was seen independently by the pulmonary nurse practitioner addressing pulmonary issues I have personally seen and examined the patient, performed the documentation and the assessment and plan as written. Number of minutes spent on the visit: 24.
[2023-10-01] MEDS: APIXABAN 5 MG TAB PO SCH (11:19)
--- NOTE | 2023-10-01 11:26 | P.PN ---
Subjective Progress Note Date: 10/01/23 Subjective: Patient seen at bedside. No significant overnight events. Patient reports his symptoms are improved since admission, reports noticing some blood in his sputum this morning s/p bronchoscopy yesterday. Patient is now also requiring 2 L nasal cannula, usually no home oxygen at home. Pertinent positives and negatives discussed above, a complete review of systems was preformed and all the other sytems were negative. Vitals Signs Reveiwed. Vital signs reviewed General: non toxic, no distress, appears at stated age, normal weight Derm: no unusual rashes/lesions, warm Head: atraumatic, normocephalic, symmetric Eyes: EOMI, no lid lag, anicteric sclera, pupils equal round reactive to light Neck: No cervical lymphadenopathy, trachea midline, supple Mouth: no lip lesion, mucus membranes moist Cardiovascular: S1S2 reg, no murmur, positive dorsalis pedis pulse bilateral, no edema Lungs: Bilateral expiratory rhonchi with diffuse wheezing, no rales, no access ory muscle use Abdominal: soft, nontender to palpation, no guarding Ext: muscle strength 5 out of 5 in all 4 extremities grossly, no gross muscle atrophy, no contractures, Neuro: CN II-XI grossly intact, no gross focal neuro deficits Psych: Alert, oriented, appropriate affect Data Reveiwed Today: Patient Labs: Sodium 136, potassium 4.2, glucose 103, AST 89, ALT 81, alkaline phosphatase 399, albumin 2.9, APTT 57.4, WBC 15.2, hemoglobin 11.6, and MCV 92.9. Imaging: Bronchoscopy was significant for thickened and broad tracheal mindy, oblique mindy was also thickened and abnormal in appearance. Additionally endobronchial and mucosal disease extending into right middle lobe, less so in left lower lobe. Multiple endobronchial biopsies to the right upper lobe and right middle lobe taken. Needle biopsy taken of main mindy and oblique mindy. Assessment/Plan: 68 -year-old male with COPD not on home oxygen quit smoking 1 month ago presents to the ER with progressively worsening shortness of breath associated with productive cough and unintentional weight loss since 2 months. Patient admitted for workup and testing of worsening shortness of breath and unin tentional weight loss. Acute on chronic bronchitis with failed outpatient therapy Started on DuoNebs [id number] and as needed Resume albuterol inhaler 2 puffs RT every 4 hours Patient requiring 2 L nasal cannula this morning after saturating in the high 80s in the morning, will try to wean patient back to room air as this is what patient's oxygen requirement was before admission. prednisone PO 40 mg daily patient received multiple courses of oral steroids and antibiotics as OP over the past 8 weeks, will hold off antibiotics for now After discussing with pulmonology, patient planned to undergo bronchoscopy and biopsy tomorrow (09/29), but will first check in with vascular and general surgery in regards to potential clot in MPV and LPV and will also check in with general surgery in regards to patient's cholelithiasis with potential cholecystitis. Bronchoscopy completed yesterday without complication, patient initially put on heparin drip but after consulting with hematology patient will be started on apixaban 10 mg p.o. twice daily. Today patient walked with 3 L of oxygen with respiratory therapist and desa tted to the 70s for O2 saturation before making it to the door of his room. Portal vein thrombosis: CTAP confirms main and left portal vein thrombosis, will follow-up with vascular recommendations Discussed with vascular surgery, no intervention required at this time, patient started on apixaban 10 mg p.o. twice daily. Cholelithiasis with potential cholecystitis: On liver ultrasound gallbladder wall was thickened with fluid seen adjacent to it. 2 mobile echogenic foci visualized with largest equaling 1.3 cm, CBD was within normal limits. Consulted general surgery, will follow-up with their recommendations Started on Zosyn IV 3.375 g 3 times daily. Right midlung mass, benign versus malignant mass Chest x-ray shows right midlung consolidation possibly representing underlying mass Bronchoscopy completed yesterday, results as above. Normocytic anemia Hemoglobin 12.4 (baseline), hematocrit 37.9, MCV 89.1 Continue monitor hemoglobin level Currently no active bleeding. Coagulopathy Elevated PT 13.7, Elevated INR 1.3, aPTT 23.2 No active bleeding clinical research monitor PT/INR Hyponatremia: Resolved Sodium increased from 1 36-1 39 this morning. Ordered normal saline IV at 50 cc/h Continue monitor sodium levels with an incidental finding of lung mass, there is some suspicion of SIADH, monitor Na level closely if it worsens while on normal saline [id number] diabetes mellitus Continue sliding scale. A1c 6.2 Continue Accu-Cheks Elevated LFTs, suspected secondary to underlying malignancy and mets versus potential cholecystitis Total bilirubin 2.9, AST 93, ALT 90, alkaline phos 498, total protein 6.2, albumin 3.3 Continue monitor CMP BPH: Continue doxazosin 4 mg p.o. daily. And Proscar 5 mg p.o. daily Hypertension: Continue amlodipine 5 mg p.o. daily. And lisinopril 40 mg p.o. daily F NS at 1000 mL IV 50 MLS per hour E none N regular diet, n.p.o. after midnight A normally ambulates without assistance at home DVT ppx: Heparin drip IV 18 units/KG/hour Code Status: Full code Anticipated discharge place: To home Anticipated discharge time: Likely tomorrow or Tuesday pending O2 requirements. I have seen and evaluated the patient today. Discussed with the resident and agree with the residents subjective and objective as documented in the resident's note. The assessment and plan was discussed and outlined as below. Patient continues to report cough productive of sputum. Apparently did very poorly during home O2 eval desaturating to the 70s with very little ambulation. He will likely need home O2 on discharge. Heparin drip switched to Eliquis. Hopeful plans for discharge with improvement in breathing in the next 1-2 days. Right perihilar mass like consolidation: Status post bronchoscopy. Cultures and pathology pending. Suspicious for malignancy given weight loss and history of heavy smoking. He has also failed multiple rounds of PO antibiotics. Procal 0.18. Azithromycin 500 mg PO QD x 3 days by Pulmonary. Transaminitis: Obstructive likely related to below. Possible portal vein thrombosis seen on Liver US: Vascular Surgery recommends no surgical intervention. Start Eliquis 10 mg PO BID. Follow up with Hematology in the outpatient setting. Possible cholecystitis: CT shows no findings of cholecystitis. Surgery genaro mmends outpatient follow up. Acute on chronic COPD exacerbation: Prednisone 40 mg PO QD. DuoNeb scheduled and PRN for SOB/wheezing. Symbicort 1 INH BID. Normocytic anemia: No signs of bleeding. Trend. Supratherapeutic INR: Likely related to livery dysfunction. Diabetes mellitus with hypoglycemia: Accuchecks ACHS with Hypoglycemic precautions. Hypertension: Amlodipine 5 mg PO QD. Lisinopril 40 mg PO QD. BPH: Doxazosin 4 mg PO QD. Proscar 5 mg PO QD. Eliquis for DVT prophylaxis. Protonix PO for GI prophylaxis. FULL CODE. Objective - Vital Signs Vital signs: Vital Signs Temp 98.2 F 10/01/23 02:00 Pulse 79 10/01/23 06:13 Resp 18 10/01/23 02:00 BP 158/78 10/01/23 02:00 Pulse Ox 91 L 10/01/23 05:54 FiO2 Intake & Output 09/30/23 10/01/23 10/01/23 18:59 06:59 18:59 Intake Total 662.172 599.069 Balance 662.172 599.069 Intake: IV 600 Intake, IV Titration 62.172 59.069 Amount Heparin Sod,Pork in 0.45% 62.172 59.069 NaCl 25,000 unit In 0.45 % NaCl 1 250ml.bag @ 18 UNITS/KG/HR 13.39 mls/hr IV .[id number] [facility] Rx#: [id number] Oral 540 Other: Voiding Method Toilet Toilet # Voids 3 1 - Labs CBC & Chem 7: 10/01/23 06:55 10/01/23 06:55 Labs: Abnormal Lab Results - Last 24 Hours (Table) 09/30/23 09/30/23 09/30/23 Range/Units 03:46 03:46 10:36 WBC 10.68 H (4.50-10.00) X 10*3/uL RBC 4.08 L (4.40-5.60) X 10*6/uL Hgb 11.6 L (13.0-17.0) g/dL Hct 35.2 L (39.6-50.0) % RDW 17.3 H (11.5-14.5) % Neutrophils # 7.94 H (1.80-7.70) X 10*3/uL Monocytes # 1.16 H (0.20-1.00) X 10*3/uL APTT 55.4 H (22.0-30.0) sec Anion Gap 12.90 H (4.00-12.00) mmol/L POC Glucose (mg/dL) (70-110) mg/dL Calcium 8.6 L (8.7-10.3) mg/dL Total Bilirubin 1.8 H (0.3-1.2) mg/dL AST 79 H (14-35) U/L ALT 85 H (10-49) U/L Alkaline Phosphatase 456 H (41-126) U/L Total Protein 5.8 L (6.2-8.2) g/dL Albumin 3.3 L (3.8-4.9) g/dL Albumin/Globulin Ratio 1.32 L (1.60-3.17) Ratio Fluid Appearance (Clear) 09/30/23 09/30/23 09/30/23 Range/Units 12:30 16:50 19:46 WBC (4.50-10.00) X 10*3/uL RBC (4.40-5.60) X 10*6/uL Hgb (13.0-17.0) g/dL Hct (39.6-50.0) % RDW (11.5-14.5) % Neutrophils # (1.80-7.70) X 10*3/uL Monocytes # (0.20-1.00) X 10*3/uL APTT (22.0-30.0) sec Anion Gap (4.00-12.00) mmol/L POC Glucose (mg/dL) 204 H 164 H (70-110) mg/dL Calcium (8.7-10.3) mg/dL Total Bilirubin (0.3-1.2) mg/dL AST (14-35) U/L ALT (10-49) U/L Alkaline Phosphatase (41-126) U/L Total Protein (6.2-8.2) g/dL Albumin (3.8-4.9) g/dL Albumin/Globulin Ratio (1.60-3.17) Ratio Fluid Appearance Bloody A (Clear) 09/30/23 10/01/23 10/01/23 Range/Units 22:17 06:55 06:55 WBC 15.2 H (4.50-10.00) X 10*3/uL RBC 3.98 L (4.40-5.60) X 10*6/uL Hgb 11.6 L (13.0-17.0) g/dL Hct 37.0 L (39.6-50.0) % RDW 16.3 H (11.5-14.5) % Neutrophils # (1.80-7.70) X 10*3/uL Monocytes # (0.20-1.00) X 10*3/uL APTT 35.6 H 57.4 H (22.0-30.0) sec Anion Gap (4.00-12.00) mmol/L POC Glucose (mg/dL) (70-110) mg/dL Calcium (8.7-10.3) mg/dL Total Bilirubin (0.3-1.2) mg/dL AST (14-35) U/L ALT (10-49) U/L Alkaline Phosphatase (41-126) U/L Total Protein (6.2-8.2) g/dL Albumin (3.8-4.9) g/dL Albumin/Globulin Ratio (1.60-3.17) Ratio Fluid Appearance (Clear)
[2023-10-01 12:13] LABS: Glucose,Whole Blood 186 mg/dL (70-110)
[2023-10-01] MEDS: ALPRAZolam 0.5 MG TAB PO PRN (15:20)
--- NOTE | 2023-10-01 15:23 | XR ---
EXAMINATION TYPE: XR chest 1V portable DATE OF EXAM: 10/01/2023 HISTORY: Shortness of breath. COMPARISON: 09/28/2023 TECHNIQUE: Single view of the chest is submitted. FINDINGS: Demonstrated are scattered senescent parenchymal change. Right upper lobe mass is redemonstrated which extends from the right hilum to the pleural surface. I suspect scattered pulmonary nodules throughout the left lung versus infiltrate. Correlate clinically. Chronic elevation right hemidiaphragm. The heart is stable. Hilar and mediastinal structures are within normal limits. Degenerative changes are seen of the dorsal spine. IMPRESSION: 1. Right upper lobe mass is redemonstrated which extends from the right hilum to the pleural surface . I suspect scattered pulmonary nodules throughout the left lung versus infiltrate. Correlate clinica lly. Chronic elevation right hemidiaphragm.
[2023-10-01] MEDS: METOPROLOL TARTRATE 25 MG TAB PO SCH (16:05)
[2023-10-01 17:08] LABS: Glucose,Whole Blood 331 mg/dL (70-110)
[2023-10-01] MEDS ORDERED: METOPROLOL TARTRATE 25 MG TAB PO SCH (21:00)
[2023-10-01 21:27] LABS: Glucose,Whole Blood 127 mg/dL (70-110)
[2023-10-01 21:41] LABS: Glucose,Whole Blood 156 mg/dL (70-110)
--- NOTE | 2023-10-02 02:22 | P.PN ---
Subjective Progress Note Date: 10/01/23 Patient seen and evaluated at bedside. no new complaints, no overnight events. Objective - Vital Signs Vital signs: Vital Signs Temp 97.7 F 10/01/23 20:00 Pulse 84 10/01/23 23:33 Resp 18 10/01/23 20:00 BP 96/55 10/01/23 20:00 Pulse Ox 100 10/01/23 20:00 FiO2 Intake & Output 10/01/23 10/01/23 10/02/23 06:59 18:59 06:59 Intake Total 599.069 93.499 Balance 599.069 93.499 Intake: Intake, IV Titration 59.069 93.499 Amount Heparin Sod,Pork in 0.45% 59.069 93.499 NaCl 25,000 unit In 0.45 % NaCl 1 250ml.bag @ 18 UNITS/KG/HR 13.39 mls/hr IV .[id number] [facility] Rx#: [id number] Oral 540 Other: Voiding Method Toilet Toilet Toilet # Voids 1 1 - Exam gen: nad c v: rrr pul: non labored breathing abd: soft, distended, no guarding or rebound tenderness - Labs CBC & Chem 7: 10/01/23 06:55 10/01/23 06:55 Labs: Abnormal Lab Results - Last 24 Hours (Table) 09/30/23 10/01/23 10/01/23 Range/Units 12:30 06:55 06:55 WBC 15.2 H (3.8-10.6) k/uL RBC 3.98 L (4.30-5.90) m/uL Hgb 11.6 L (13.0-17.5) gm/dL Hct 37.0 L (39.0-53.0) % RDW 16.3 H (11.5-15.5) % APTT 57.4 H (22.0-30.0) sec Sodium (137-145) mmol/L Chloride (98-107) mmol/L Glucose (74-99) mg/dL POC Glucose (mg/dL) (70-110) mg/dL Total Bilirubin (0.2-1.3) mg/dL AST (17-59) U/L ALT (4-49) U/L Alkaline Phosphatase (38-126) U/L Total Protein (6.3-8.2) g/dL Albumin (3.5-5.0) g/dL Fluid Appearance Bloody A (Clear) 10/01/23 10/01/23 10/01/23 Range/Units 06:55 12:11 17:07 WBC (3.8-10.6) k/uL RBC (4.30-5.90) m/uL Hgb (13.0-17.5) gm/dL Hct (39.0-53.0) % RDW (11.5-15.5) % APTT (22.0-30.0) sec Sodium 136 L (137-145) mmol/L Chloride 108 H (98-107) mmol/L Glucose 103 H (74-99) mg/dL POC Glucose (mg/dL) 186 H 331 H (70-110) mg/dL Total Bilirubin 2.9 H (0.2-1.3) mg/dL AST 89 H (17-59) U/L ALT 81 H (4-49) U/L Alkaline Phosphatase 399 H (38-126) U/L Total Protein 5.9 L (6.3-8.2) g/dL Albumin 3.0 L (3.5-5.0) g/dL Fluid Appearance (Clear) 10/01/23 10/01/23 Range/Units 21:26 21:40 WBC (3.8-10.6) k/uL RBC (4.30-5.90) m/uL Hgb (13.0-17.5) gm/dL Hct (39.0-53.0) % RDW (11.5-15.5) % APTT (22.0-30.0) sec Sodium (137-145) mmol/L Chloride (98-107) mmol/L Glucose (74-99) mg/dL POC Glucose (mg/dL) 127 H 156 H (70-110) mg/dL Total Bilirubin (0.2-1.3) mg/dL AST (17-59) U/L ALT (4-49) U/L Alkaline Phosphatase (38-126) U/L Total Protein (6.3-8.2) g/dL Albumin (3.5-5.0) g/dL Fluid Appearance (Clear) Microbiology - Last 24 Hours (Table) 09/30/23 12:30 Gram Stain - Preliminary Bronchoalviolar Lavage - Right Assessment and Plan Assessment: 1. Gallstones with cholecystitis 2. Portal vein thrombosis 3. Chronic cough 4. Leukocytosis PLAN: 1. Patient has multiple medical comorbidities including portal vein thrombosis and is asymptomatic. 2. No acute surgical invention at this time. Time with Patient: Less than 30
[2023-10-02 02:40] LABS: ABG Base Excess -0.2 mmol/L; ABG HCO3 25 mmol/L (21-25); ABG Oxygen Saturation 93.4 % (94-97); ABG PCO2 43 mmHg (35-45); ABG PH 7.38 (7.35-7.45); ABG PO2 69 mmHg (83-108); ABG TCO2 26 mmol/L (19-24); Allen Test Performed? Yes
[2023-10-02] MEDS: methylPREDNISolone SOD SUCCI 125 MG/2 ML VIAL IV STA (02:42)
--- NOTE | 2023-10-02 02:59 | XR ---
EXAM: XR Chest, 1 View CLINICAL HISTORY: ITS.REASON XR Reason: SOB TECHNIQUE: Frontal view of the chest. COMPARISON: CT chest 09/29/23 FINDINGS: Lungs: Extensive consolidative opacities right upper lobe, left upper lobe, left lower lobe. Left-sided opacities are new from prior CT. Right upper lobe consolidation is associated with volume loss. Pleural space: Layering right pleural effusion. No significant left pleural effusion. No pneumothorax. Heart: Unremarkable. No cardiomegaly or pulmonary vascular congestion. Bones/joints: No acute fracture. No dislocation. IMPRESSION: 1. Persistent right upper lobe consolidation with volume loss. Appearance raises concern for an obstructing mass or lesion involving the right upper lobe bronchus, with postobstructive atelectasis/pneumonia. 2. Extensive consolidation throughout the left upper and lower lobes, new when compared to prior CT. Consider flash pulmonary edema or rapidly progressive pneumonia. 3. Layering right pleural effusion.
--- NOTE | 2023-10-02 03:09 | P.EN ---
A- team: Indication: Shortness of breath with hypoxia Arrived on Scene to find: Coughing excessively while on 15 L nonrebreather, SpO2 90% Vital signs reviewed: BP 127/70, SpO2 90% on 15 L nonrebreather, pulse 70 Patient seen and examined at bedside. Patient reports that he has been experiencing this gradually worsening cough over the past few days since undergoing the bronchoscopy. Does note that his breathing however worsened acutely tonight, particularly due to the cough. General: Somewhat ill-appearing male, in mild to moderate respiratory distress, [appears at stated age] Derm: [warm], [dry] Head: [atraumatic], [normocephalic], [symmetric] Eyes: [EOMI], [no lid lag], [anicteric sclera] Mouth: [no lip lesion], [mucus membranes moist] Cardiovascular: [S1S2 reg], [no murmur], [positive posterior tibial pulse bilateral], Lungs: Poor air entry bilaterally with diffuse rhonchi, [no accessory muscle use] Abdominal: [soft], [ nontender to palpation], [no guarding], [no appreciable organomegaly] Ext: [no gross muscle atrophy], [no edema], [no contractures] Neuro: [ CN II-XI grossly intact], [no focal neuro deficits] Psych: [Alert], [oriented], [appropriate affect] Assessment: Acute hypoxic respiratory failure, suspect Multifactorial due to COPD exacerbation with underlying malignancy Plan: Patient started on Solu-Medrol with 125 mg IV once and 60 mg every 6 hours scheduled Continue DuoNebs [id number] and as needed BiPAP initiated ABG and chest x-ray ordered Patient to be moved to 3 S. Pulmonary following the patient Continue patient's Tessalon Perles along with Robitussin Disposition: Move patient to 3 S. A Total of 40 minutes of critical care time was spent on the complex care of this patient.
[2023-10-02 03:34] LABS: Glucose,Whole Blood 134 mg/dL (70-110)
[2023-10-02] MEDS: FUROSEMIDE 10 MG/ML 10 ML VIAL IV STA (03:46)
[2023-10-02] MEDS: DILTIAZEM 125 MG in SODIUM CHLORIDE 0.9% 100 ML IV SCH (05:45)
[2023-10-02 07:44] LABS: Glucose,Whole Blood 173 mg/dL (70-110)
[2023-10-02] MEDS: DILTIAZEM DRIP BOLUS FROM BAG 1 MG SOLN IV ONE (07:51)
[2023-10-02] MEDS: methylPREDNISolone SOD SUCCI 125 MG/2 ML VIAL IV SCH (07:52)
[2023-10-02 08:56] LABS: Anisocytosis Slight; HCT 39.8 % (39.0-53.0); HGB 12.5 gm/dL (13.0-17.5); Hypochromasia Moderate; MCH 28.5 pg (25.0-35.0); MCHC 31.5 g/dL (31.0-37.0); MCV 90.5 fL (80.0-100.0); Mean Platelet Volume 7.8; Platelet Count 257 k/uL (150-450); RDW 16.3 % (11.5-15.5); WBC 18.4 k/uL (3.8-10.6)
[2023-10-02] MEDS: BUDESONIDE 1 MG/2 ML NEBU INHALATION SCH (08:59)
[2023-10-02 09:34] LABS: African American GFR (CKD) >90 (>60 ml/min/1.73 sqM); Anion Gap 4 mmol/L; Blood Urea Nitrogen 18 mg/dL (9-20); Calcium 8.8 mg/dL (8.4-10.2); Carbon Dioxide 29 mmol/L (22-30); Chloride 102 mmol/L (98-107); Glucose 167 mg/dL (74-99); Magnesium 1.4 mg/dL (1.6-2.3); Non-African American GFR(CKD) >90 (>60 ml/min/1.73 sqM); Potassium 4.3 mmol/L (3.5-5.1); Sodium 135 mmol/L (137-145)
[2023-10-02 09:43] LABS: NT-Pro-B-Type Natriuretic Pept 1090 pg/mL
--- NOTE | 2023-10-02 11:04 | P.PN ---
Subjective Progress Note Date: 10/02/23 Patient is a 68-year-old white male with past medical history significant for hypertension, hyperlipidemia, diabetes, chronic obstructive pulmonary disease, former tobacco dependence. Primary care provider is Dr. Castelan. Patient's chief complaint is a persistent cough for the last 2 months. He has been seen by multiple urgent care clinics, treated with courses of antibiotics and steroids without any significant improvement in his symptoms. He did go to his primary care provider yesterday, who directed him to the emergency department. He is complaining of a persistent cough over the last 2 months. Previously productive with yellow sputum, now non-productive. No hemoptysis. The cough has interfered with his sleeping. He is also been short of breath with minimal exertion. His rescue inhaler has not been providing much relief. He has been generally weak. Denies fevers. Denies sick contacts. He does have history of COPD. He has history of heavy tobacco dependence, quitting approximately 1 month ago. Reports [id number] smoking history. He has had also poor appetite. Endorses 20 pound weight loss over 2-month timeframe. Denies any history of cancer. Chest x-ray done arrival shows a suspicious right perihilar masslike opacity and volume loss. CBC unremarkable without leukocytosis. CMP: Sodium 136, potassium 4.3, chloride 105, serum bicarb 23, BUN 19, creatinine 0.83, glucose 137. Normal saline infusing at 50 MLS per hour. LFTs are mildly elevated. AST 97, ALT 81, ALP 407. Total bilirubin 2.9. Troponin less than 0.012. Patient is currently resting comfortably on room air. He continues to have persistent cough, which is currently nonproductive. Afebrile. Vital signs are stable. Patient will be taken down for CT of the chest tonight. The patient is seen today September 30, 2023 in follow-up on the regular medical floor. He is currently resting in bed. Awake and alert in no acute distress. He did not denies any worsening shortness of breath, cough or congestion. He is maintaining good O2 saturations in room air. He remains on normal saline at 50 MLS per hour. Continued on a heparin drip. Plan is for bronchoscopy with biopsies today. Heparin will be discontinued at 10 AM. Ultrasound of the chest revealed a right sided pleural effusion with a 4.6 cm pocket. Ultrasound of the liver revealed findings suspicious for portal venous thrombosis. Heterogeneity could be related to underlying hepatocellular disease. CAT scan of the abdomen pelvis revealed portal vein thrombosis extending from the main portal vein into the left portal vein. The right portal vein remains patent. No involvement in the superior mesenteric vein. Minimal abdominal volume of abdominal and pelvic ascites. Right pleural effusion. White count 10.6. Hemoglobin 11.6. Platelets 283. Sodium 139. Potassium 3.9. Bicarb 22. BUN 12. Creatinine 0.8. Glucose 79. He is continued on DuoNeb inhalations, Symbicort, prednisone. Antibiotics in the form of Zosyn and Zithromax. The patient is seen today October 01, 2023 in follow-up on the regular medical floor. He is awake and alert in no acute distress. Resting comfortably in bed. Still with a loose nonproductive cough. Continue good O2 saturations in the mid 90s on 2 L/min per nasal cannula. He has normal saline at 50 MLS per hour. Continued on a heparin drip. He did undergo bronchoscopy with biopsies and BAL. Cultures and cytology pending. White count 15.2. Hemoglobin 11.6. Platelets 253. Sodium 139. Potassium 4.2. Bicarb 22. BUN 13. Creatinine 0.67. Glucose 103. He remains on DuoNeb inhalations, Symbicort, prednisone taper. Antibiotics in the form of azithromycin. Robitussin and Tessalon Perles for his cough. The patient is seen today October 02, 2023 in follow-up in the intensive care unit. Approximately 3:00 this morning the patient had been coughing excessively and requiring a 15 L nonrebreather mask to maintain O2 saturations in the 90s. Chest x-ray revealed right upper lobe addition with volume loss. Concern for obstructing mass or lesion. He is status post bronchoscopy with biopsies. He did develop extensive consolidation of the left upper and lower lobes. Possibly aspiration. He also developed atrial fibrillation with a rapid ventricular response. White count 18.4. Hemoglobin 12.5. Platelets 257. Sodium 135. Potassium 4.3. Bicarb 29. BUN 18. Creatinine 0.68. Glucose 167. Arterial blood gases on 75% FiO2 revealed a PaO2 of 69, pCO2 43 and a pH of 7.38. proBNP 1090. TSH 0.582. He has been initiated on Eliquis. He remains on bronchodilators, steroids, Tessalon Perles. He was given Lasix 80 mg IVP x 1. Remains on a Cardizem drip at 5 mg an hour. Objective - Vital Signs Vital signs: Vital Signs Temp 98.7 F 10/02/23 08:00 Pulse 124 H 10/02/23 10:00 Resp 32 H 10/02/23 10:00 BP 108/73 10/02/23 10:00 Pulse Ox 92 L 10/02/23 10:00 FiO2 80 10/02/23 08:33 Intake & Output 10/01/23 10/02/23 10/02/23 18:59 06:59 18:59 Intake Total 93.499 Balance 93.499 Weight 68.4 kg Intake: Intake, IV Titration 93.499 Amount Heparin Sod,Pork in 0.45% 93.499 NaCl 25,000 unit In 0.45 % NaCl 1 250ml.bag @ 18 UNITS/KG/HR 13.39 mls/hr IV .[id number] [facility] Rx#: [id number] Other: Voiding Method Toilet Toilet # Voids 1 - Exam GENERAL EXAM: Alert, 68-year-old male patient, on BiPAP 10/5 and 80% FiO2, in no apparent distress. HEAD: Normocephalic. EYES: Normal reaction of pupils, equal size. NOSE: Clear with pink turbinates. THROAT: No erythema or exudates. NECK: No masses, no JVD. CHEST: No chest wall deformity. LUNGS: Equal air entry with bilateral scattered rhonchi. CVS: S1 and S2 normal with no audible murmur, regular rhythm. ABDOMEN: No hepatosplenomegaly, normal bowel sounds, no guarding or rigidity. SPINE: No scoliosis or deformity SKIN: No rashes CENTRAL NERVOUS SYSTEM: No focal deficits, tone is normal in all 4 extremities. EXTREMITIES: There is no peripheral edema. No clubbing, no cyanosis. Peripheral pulses are intact. - Labs CBC & Chem 7: 10/02/23 08:44 10/02/23 08:52 Labs: Abnormal Lab Results - Last 24 Hours (Table) 10/01/23 10/01/23 10/01/23 Range/Units 12:11 17:07 21:26 WBC (3.8-10.6) k/uL Hgb (13.0-17.5) gm/dL RDW (11.5-15.5) % ABG pO2 (83-108) mmHg ABG Total CO2 (19-24) mmol/L ABG O2 Saturation (94-97) % Sodium (137-145) mmol/L Glucose (74-99) mg/dL POC Glucose (mg/dL) 186 H 331 H 127 H (70-110) mg/dL Magnesium (1.6-2.3) mg/dL 10/01/23 10/02/23 10/02/23 Range/Units 21:40 02:35 03:32 WBC (3.8-10.6) k/uL Hgb (13.0-17.5) gm/dL RDW (11.5-15.5) % ABG pO2 69 L (83-108) mmHg ABG Total CO2 26 H (19-24) mmol/L ABG O2 Saturation 93.4 L (94-97) % Sodium (137-145) mmol/L Glucose (74-99) mg/dL POC Glucose (mg/dL) 156 H 134 H (70-110) mg/dL Magnesium (1.6-2.3) mg/dL 10/02/23 10/02/23 10/02/23 Range/Units 07:42 08:44 08:52 WBC 18.4 H (3.8-10.6) k/uL Hgb 12.5 L (13.0-17.5) gm/dL RDW 16.3 H (11.5-15.5) % ABG pO2 (83-108) mmHg ABG Total CO2 (19-24) mmol/L ABG O2 Saturation (94-97) % Sodium 135 L (137-145) mmol/L Glucose 167 H (74-99) mg/dL POC Glucose (mg/dL) 173 H (70-110) mg/dL Magnesium 1.4 L (1.6-2.3) mg/dL Microbiology - Last 24 Hours (Table) 09/30/23 12:30 Gram Stain - Preliminary Bronchoalviolar Lavage - Right Assessment and Plan Assessment: Acute hypoxemic respiratory failure secondary to right upper lobe consolidation and new extensive pulmonary vascular congestion versus aspiration pneumonia Atrial fibrillation with a rapid ventricular response, transition to Eliquis Right perihilar masslike consolidation, right pleural effusion measuring less than 5 cm. Bronchoscopy with biopsies on September 30, 2023. Cultures and cytology pending Subacute cough, refractory to multiple outpatient treatments of antibiotics and steroids Unintentional 20 pound weight loss, over 2-month timeframe Chronic obstructive pulmonary disease Former tobacco dependence, quitting approximately 1 month ago, with [id number] history Elevated liver enzymes, unknown significance, ultrasound of liver reveals findings suspicious for portal venous thrombosis. Underlying heterogeneity could be related to underlying hepatocellular disease. CT scan of the abdomen revealed a portal vein thrombosis extending from the main portal vein into the left portal vein. The right portal vein remains patent. No involving the superior mesenteric vein. Remains on a heparin drip Hypertension History of hyperlipidemia Diabetes mellitus type 2 Plan: The patient was seen and evaluated X-rays, ABGs, labs and medications reviewed Currently on BiPAP 10/5 and 80% FiO2 Titrate the FiO2 as tolerated Remains on a Cardizem drip Anticoagulated with Eliquis Continue bronchodilators, steroids Echocardiogram pending To be made an ICU admission We will continue to follow and make further recommendations based on his clinical status I have personally seen and examined the patient, performed the documentation and the assessment and plan as written. Number of minutes spent on the visit: 10.
[2023-10-02] MEDS: FUROSEMIDE 10 MG/ML 4 ML VIAL IV SCH (11:14)
--- NOTE | 2023-10-02 11:43 | P.CRDCN ---
History of Present Illness Consult date: 10/02/23 History of present illness: This is a 70-year-old gentleman with a past medical history significant for diabetes and hypertension and dyslipidemia with no history of coronary artery disease or cardiac arrhythmia. The patient was admitted to the hospital few days ago with persistent cough and congestion was not getting better on outpatient treatment and for that reason the patient was presented to the emergency department and subsequently he was admitted. He underwent further evaluation including an x-ray and that showed possible mass/consolidation. Subsequently the patient underwent a CT scan of the chest and that revealed the mass. He underwent bronchoscopy and biopsy but the results still pending at this point. Also the patient was found to have a portal vein thrombus. He is on oral anticoagulation using Eliquis. The patient was going to be discharged later on today but subsequently he was feeling worse with shortness of breath with exertion which has progressed on him associated with congestion as well. He was noted to be in atrial fibrillation with rapid ventricular response which is new to him. He was started on Cardizem IV. Repeated the chest x-ray after he went into respiratory failure revealed possible underlying pneumonia which has progressed significantly versus heart failure. His NT proBNP is not severely elevated. He was only on 2 L oxygen and supposed to go home and oxygen but currently he is on 10 L oxygen to maintain saturation above 90%. He is not experiencing any symptoms of chest pain or chest discomfort. Definitely he is congested on examination with a bilateral rhonchi. The physical examination otherwise is remarkable for stable vital signs with slight tachycardia and irregular rhythm and no edema was noted in the lower extremities. The EKG showed atrial fibrillation with diffuse nonspecific ST and T wave abnormalities. Assessment Acute hypoxic respiratory failure likely to be multifactorial and secondary to pneumonia and heart failure Heart failure of unknown etiology. The echo still pending Atrial fibrillation with RVR which is a new diagnosis to the patient Right upper lobe mass Multiple comorbid conditions including diabetes and hypertension and dyslipidemia Plan Agree about keeping the patient on the current dose of Lasix IV Monitor the kidney function and electrolytes He is already on oral anticoagulation with Eliquis which we will continue Follow-up on the echocardiogram Follow-up with the patient Increase the dose of metoprolol Past Medical History Past Medical History: Asthma, COPD, Diabetes Mellitus, GERD/Reflux, Hyperlipidemia, Hypertension, Prostate Disorder Additional Past Medical History / Comment(s): arthritis, History of Any Multi-Drug Resistant Organisms: None Reported Past Surgical History: Hernia Repair Past Anesthesia/Blood Transfusion Reactions: No Reported Reaction Additional Past Anesthesia/Blood Transfusion Reaction / Comment(s): no blood transfusion Past Psychological History: Anxiety, Depression Smoking Status: Former smoker Past Alcohol Use History: None Reported Past Drug Use History: Marijuana - Past Family History Mother Family Medical History: No Reported History Medications and Allergies Home Medications Medication Instructions Recorded Confirmed Type Albuterol Sulfate [Proair Hfa] 2 puff INHALATION RT-Q4H PRN 08/04/14 09/28/23 History Aspirin 81 mg PO DAILY 08/04/14 09/28/23 History Doxazosin Mesylate [Cardura] 4 mg PO DAILY 08/04/14 09/28/23 History Enalapril [Vasotec] 20 mg PO DAILY 08/04/14 09/28/23 History Fenofibrate 160 mg PO DAILY 08/04/14 09/28/23 History Finasteride [Proscar] 5 mg PO DAILY 08/04/14 09/28/23 History Multivitamin [Men's Multi-Vitamin] 1 tab PO DAILY 08/04/14 09/28/23 History metFORMIN HCL ER [Glucophage XR] 1,000 mg PO BID 08/04/14 09/28/23 History buPROPion HCL [Wellbutrin XL] 300 mg PO DAILY 05/10/15 09/28/23 History L.acidoph,Paracasei, B.lactis 1 cap PO DAILY 01/05/23 09/28/23 History [Probiotic] amLODIPine [Norvasc] 5 mg PO DAILY 01/05/23 09/28/23 History Dulaglutide [Trulicity] 1.5 mg SQ WE 09/28/23 09/28/23 History Simvastatin [Zocor] 20 mg PO HS 09/28/23 09/28/23 History glipiZIDE [glipiZIDE ER] 10 mg PO DAILY 09/28/23 09/28/23 History traZODone HCL [Desyrel] 50 mg PO HS 09/28/23 09/28/23 History Apixaban [Eliquis Starter Pack 5 - 10 mg PO DIRECTED 30 Days 09/30/23 Rx (for VTE)] #1 each Allergies Allergy/AdvReac Type Severity Reaction Status Date / Time No Known Allergies Allergy Verified 09/28/23 18:38 Physical Exam Vitals: Vital Signs Temp Pulse Pulse Pulse Pulse Pulse Pulse 10/02/23 10:00 124 H 10/02/23 09:30 104 H 10/02/23 09:08 126 H 10/02/23 09:00 108 H 10/02/23 08:33 10/02/23 08:32 117 H 10/02/23 08:30 135 H 10/02/23 08:20 10/02/23 08:19 122 H 10/02/23 08:00 98.7 F 122 H 10/02/23 07:03 10/02/23 05:40 10/02/23 04:00 96.8 F L 74 10/02/23 03:41 10/02/23 02:00 98.4 F 82 10/01/23 23:33 84 10/01/23 20:24 77 10/01/23 20:08 72 10/01/23 20:00 97.7 F 77 10/01/23 18:33 65 10/01/23 16:48 104 H 10/01/23 16:38 104 H 10/01/23 14:00 98.5 F 126 H 10/01/23 12:48 128 H 10/01/23 12:46 10/01/23 12:38 126 H 10/01/23 12:35 109 H 10/01/23 12:31 141 H 130 H 118 H Pulse Resp BP BP BP Pulse Ox Pulse Ox 10/02/23 10:00 32 H 108/73 92 L 10/02/23 09:30 35 H 138/70 94 L 10/02/23 09:08 10/02/23 09:00 30 H 141/109 92 L 10/02/23 08:33 10/02/23 08:32 10/02/23 08:30 34 H 125/107 90 L 10/02/23 08:20 10/02/23 08:19 10/02/23 08:00 33 H 148/104 95 10/02/23 07:03 10/02/23 05:40 10/02/23 04:00 32 H 159/89 99 10/02/23 03:41 10/02/23 02:00 18 156/90 83 L 10/01/23 23:33 10/01/23 20:24 10/01/23 20:08 10/01/23 20:00 18 96/55 100 10/01/23 18:33 137/80 90 L 10/01/23 16:48 10/01/23 16:38 10/01/23 14:00 16 135/76 92 L 10/01/23 12:48 10/01/23 12:46 93 L 10/01/23 12:38 90 L 10/01/23 12:35 10/01/23 12:31 137 H 87 L Pulse Ox Pulse Ox Pulse Ox FiO2 10/02/23 10:00 10/02/23 09:30 10/02/23 09:08 10/02/23 09:00 10/02/23 08:33 80 10/02/23 08:32 10/02/23 08:30 70 10/02/23 08:20 80 10/02/23 08:19 10/02/23 08:00 80 10/02/23 07:03 100 10/02/23 05:40 70 10/02/23 04:00 100 10/02/23 03:41 100 10/02/23 02:00 10/01/23 23:33 10/01/23 20:24 10/01/23 20:08 10/01/23 20:00 10/01/23 18:33 10/01/23 16:48 10/01/23 16:38 10/01/23 14:00 10/01/23 12:48 10/01/23 12:46 10/01/23 12:38 10/01/23 12:35 10/01/23 12:31 79 L 85 L 76 L Intake and Output 10/01/23 10/02/23 10/02/23 22:59 06:59 14:59 Other: Voiding Method Toilet # Voids 1 Weight 68.4 kg Results 10/02/23 08:44 10/02/23 08:52 Coagulation 10/02/23 Range/Units 02:39 APTT 25.0 (22.0-30.0) sec CBC 10/02/23 Range/Units 08:44 WBC 18.4 H (3.8-10.6) k/uL RBC 4.40 (4.30-5.90) m/uL Hgb 12.5 L (13.0-17.5) gm/dL Hct 39.8 (39.0-53.0) % Plt Count 257 (150-450) k/uL Comprehensive Metabolic Panel 10/02/23 Range/Units 08:52 Sodium 135 L (137-145) mmol/L Potassium 4.3 (3.5-5.1) mmol/L Chloride 102 (98-107) mmol/L Carbon Dioxide 29 (22-30) mmol/L BUN 18 (9-20) mg/dL Creatinine 0.68 (0.66-1.25) mg/dL Glucose 167 H (74-99) mg/dL Calcium 8.8 (8.4-10.2) mg/dL Current Medications Generic Name Dose Route Start Last Admin Trade Name Freq PRN Reason Stop Dose Admin Acetaminophen 650 mg 09/28/23 20:53 Acetaminophen Tab 325 Mg Tab PO Q6HR PRN Mild Pain or Fever > 100.5 Albuterol/Ipratropium 3 ml 09/28/23 23:04 10/01/23 23:33 Ipratropium-Albuterol 3 Ml Neb INHALATION 3 ml RT-QID PRN Administration Shortness Of Breath Or Wheezing Albuterol/Ipratropium 3 ml 09/29/23 08:00 10/02/23 08:17 Ipratropium-Albuterol 3 Ml Neb INHALATION 3 ml RT-QID CESARIO Administration Alprazolam 0.5 mg 10/01/23 14:34 10/02/23 04:30 Alprazolam 0.5 Mg Tab PO 0.5 mg BID PRN Administration Anxiety Amlodipine Besylate 5 mg 09/29/23 09:00 10/02/23 11:14 Amlodipine 5 Mg Tab PO 5 mg DAILY CESARIO Administration Apixaban 10 mg 10/01/23 11:00 10/02/23 11:13 Apixaban 5 Mg Tab PO 10 mg BID CESARIO Administration Protocol Benzonatate 100 mg 09/29/23 16:00 10/02/23 11:13 Benzonatate 100 Mg Cap PO 100 mg TID CESARIO Administration Benzonatate 100 mg 10/01/23 00:37 Benzonatate 100 Mg Cap PO TID PRN Cough Budesonide 1 mg 10/02/23 09:00 10/02/23 08:59 Budesonide 1 Mg/2 Ml Nebu INHALATION 1 mg RT-BID CESARIO Administration Dextrose/Water 25 ml 09/28/23 23:07 09/30/23 06:21 Dextrose 50% Syringe 50 Ml IVP 25 ml PER PROTOCOL PRN Administration Hypoglycemia Protocol Dextrose/Water 50 ml 09/28/23 23:07 Dextrose 50% Syringe 50 Ml IVP PER PROTOCOL PRN Hypoglycemia Protocol Doxazosin Mesylate 4 mg 09/29/23 09:00 10/02/23 11:13 Doxazosin 4 Mg Tab PO 4 mg DAILY CESARIO Administration Finasteride 5 mg 09/29/23 09:00 10/02/23 11:13 Finasteride 5 Mg Tab PO 5 mg DAILY CESARIO Administration Formoterol Fumarate 20 mcg 10/02/23 20:00 Formoterol Fumarate 20 Mcg/2 Ml Nebu INHALATION RT-BID CESARIO Furosemide 40 mg 10/02/23 09:00 10/02/23 11:14 Furosemide 10 Mg/Ml 4 Ml Vial IV Not Given Q12HR CESARIO Guaifenesin/Codeine Phosphate 10 ml 09/30/23 18:48 10/02/23 02:41 Guaifenesin-Coden 100-10mg/5ml 10 Ml Cup PO 10 ml Q6HR PRN Administration Cough Sodium Chloride 1,000 mls @ 50 mls/hr 09/28/23 23:15 10/02/23 07:45 Saline 0.9% IV Not Given .Q20H CESARIO Diltiazem HCl 125 mg/ Sodium 125 mls @ 5 mls/hr 10/02/23 05:45 10/02/23 05:45 Chloride IV 5 mg/hr .Q24H CESARIO 5 mls/hr Administration 5 MG/HR Insulin Aspart 0 unit 09/29/23 07:30 10/02/23 07:51 Insulin Aspart (Novolog) 100 Unit/Ml Vial SQ 2 unit ACHS CESARIO Administration Protocol Lisinopril 40 mg 09/29/23 09:00 10/01/23 08:53 Lisinopril 20 Mg Tab PO 40 mg DAILY CESARIO Administration Methylprednisolone Sodium Succinate 60 mg 10/02/23 06:00 10/02/23 11:03 Methylprednisolone Sod Succi 125 Mg/2 Ml Vial IV 60 mg Q6HR CESARIO Administration Metoprolol Tartrate 25 mg 10/01/23 16:00 10/02/23 11:13 Metoprolol Tartrate 25 Mg Tab PO 25 mg BID CESARIO Administration Naloxone HCl 0.2 mg 09/28/23 20:53 Naloxone 0.4 Mg/Ml 1 Ml Vial IV Q2M PRN Opioid Reversal Oxycodone/Acetaminophen 1 each 09/28/23 20:53 10/01/23 11:35 Oxycodone-Apap 5-325mg 1 Each Tab PO 1 each Q4HR PRN Administration Severe Pain (Scale 7 to 10) Pantoprazole Sodium 40 mg 09/29/23 07:30 10/02/23 11:13 Pantoprazole 40 Mg Tablet PO 40 mg [id number] CESARIO Administration Tramadol HCl 50 mg 09/28/23 20:53 Tramadol 50 Mg Tab PO Q6H PRN Moderate Pain (Scale 4 to 6) Trazodone HCl 50 mg 09/29/23 00:30 10/01/23 21:48 Trazodone Hcl 50 Mg Tab PO 50 mg HS CESARIO Administration Intake and Output 10/01/23 10/02/23 10/02/23 22:59 06:59 14:59 Other: Voiding Method Toilet # Voids 1 Weight 68.4 kg Patient Weight 10/03/23 06:59 Weight 68.4 kg 10/02/23 08:44 10/02/23 08:52
--- NOTE | 2023-10-02 12:02 | P.PN ---
Subjective Progress Note Date: 10/02/23 68 year old M with PMH of NIDDM, HTN, HLD, COPD not on home O2 presented to the ED for progressively worsening exertional SOB associated with productive cough. Also 20 lbs weight loss over 6 weeks due to poor appetite. Attempted multiple rounds of antibiotics, steroids and inhalers without much relief. In the ED he underwent extensive evaluation. BP 105/59, HR 96, T 97.1F, RR 18, 96% on RA. CBC, Coag panel, CMP significant for RBC 4.25, Hg 12.4, Hct 37.9, PT 13.7, INR 1.3, Na 136, glu 137, T. Bili 2.9, AST 97, ALT 81, alk phos 407, alb 3.3. Troponin < 0.012. Procal 0.18. EKG showed sinus arrhythmia with RBBB. CXR right midlung consolidation. CT chest performed showed RUL consolidation with volume loss and interstitial edema in the right lung with moderate right pleural effusion. Patient was started on Azithromycin and admitted for Pulmonary evaluation. Liver US was ordered for transaminitis which showed possible clot in the MPV and LPV and GB wall thickening with pericholecystic fluid and gallstone. He was started on Zosyn and Heparin drip as well. Vascular surgery consulted, CTA AP completed confirming portal vein thrombosis MPV into the LPV, recommended no surgical intervention, Hematology consulted and heparin drip transitioned to Eliquis on 09/30. Surgery consulted for possible cholecystitis. CTA AP showed a contracted gall bladder. Given his lack of symptoms, Zosyn discontinued and patient advised no acute surgical intervention and outpatient follow up. He underwent bronchoscopy with BAL on 09/29 where biopsies and cultures were obtained. 10/01 Patient was seen and examined. A-team called last night for hypoxia, required BiPAP, CXR showing worsening consolidation in the left lung, given Lasix 80 mg IV x 1, DuoNeb treatment, SoluMedrol 125 mg IV and transferred to ICU for closer monitoring. Earlier, he performed poorly during his home O2 eval destaturating to the 70s with minimal exertion. Also noted to be tachycardic with EKG showing A-Fib with RVR. He was started on Metoprolol PO and already AC with Eliquis for his PVT. He is currently on BiPAP and tachypneic. ABG shows pH 7.38, pCO2 43 with O2 sat of 93.4 on FiO2 75%. CXR done this morning shows persisted RUL consolidation, extensive consolidation in the left lung which is new when compared to CT from earlier in this admission. He is currently on a Cardizem drip at 5 mg/hr and Lasix 40 mg IV BID. TSH is 0.582. CBC and BMP significant for WBC 18.4, Hg 12.5, Na 135, glu 167. Mag 1.4. BNP 1090. General: non toxic, moderate distress, appears at stated age Derm: warm, dry Head: atraumatic, normocephalic, symmetric Eyes: EOMI, no lid lag, anicteric sclera Mouth: no lip lesion, mucus membranes moist Cardiovascular: S1S2 irreg, no murmur Lungs: Coarse BS bilateral, no rhonchi, no rales , tachypneic Ext: no gross muscle atrophy, no edema, no contractures Neuro: no focal neuro deficits Psych: Alert, oriented, appropriate affect Based on my assessment of this patient, this patient meets a high complexity level of care. Acute hypoxic respiratory failure secondary to known RUL consolidation (mass ve rsus post obstructive PNA) with new extensive left sided consolidation: Concerns for flash pulmonary edema. Started on Lasix 40 mg IV BID, monitor electrolytes and renal function. Antibiotics as below. COPD treatment as below. Strict intake and outtake. Daily weight. Continue BiPAP and attempt to wean to [place]. Pulmonary on board. Atrial fibrillation with RVR: Metoprolol 25 mg PO BID. Started on Cardizem at 5 mg/hr. Already on AC with Eliquis. TSH wnl. Echocardiogram ordered. Maintain K > 4 and Mg > 2. Consult Cardiology. Right perihilar mass like consolidation: Status post bronchoscopy. Cultures and pathology pending. Suspicious for malignancy given weight loss and history of heavy smoking. He has also failed multiple rounds of PO antibiotics. Procal 0.18. Azithromycin 500 mg PO QD x 3 days by Pulmonary. HypoMag Mag sulfate ordered. Transaminitis: Obstructive likely related to below. Portal vein thrombosis seen on Liver US: Vascular Surgery recommends no surgical intervention. Eliquis 10 mg PO BID. Follow up with Hematology in the outpatient setting. Possible cholecystitis seen on Liver US: CT shows no findings of cholecystitis. No antibiotics at this time. Surgery recommends outpatient follow up. Acute on chronic COPD exacerbation: SoluMedrol 60 mg IV Q6H. DuoNeb scheduled a nd PRN for SOB/wheezing. Symbicort 1 INH BID. Normocytic anemia: No signs of bleeding. Trend. Supratherapeutic INR: Likely related to livery dysfunction. Diabetes mellitus: Accuchecks ACHS with Hypoglycemic precautions. Hypertension: Amlodipine 5 mg PO QD. Lisinopril 40 mg PO QD. BPH: Doxazosin 4 mg PO QD. Proscar 5 mg PO QD. CODE STATUS: FULL CODE DVT Prophylaxis: Eliquis GI Prophylaxis: Protonix PO Designated medical POA if patient is not able to make medical decisions for themselves: I have reviewed the following marine engineering consultant notes: Pulmonary, Cardiology, Surgery note. I have reviewed the results of the following tests: ABG, TSH. I have ordered the following tests: Echo. CBC, BMP, Mag pending. I have discussed the care of this patient with the following independent historian: I have independently interpreted the following test below: CXR. EKG. I have discussed the management of this patient with the following physician: Objective - Vital Signs Vital signs: Vital Signs Temp 96.8 F L 10/02/23 04:00 Pulse 74 10/02/23 04:00 Resp 32 H 10/02/23 04:00 BP 159/89 10/02/23 04:00 Pulse Ox 99 10/02/23 04:00 FiO2 100 10/02/23 07:03 Intake & Output 10/01/23 10/02/23 10/02/23 18:59 06:59 18:59 Intake Total 93.499 Balance 93.499 Intake: Intake, IV Titration 93.499 Amount Heparin Sod,Pork in 0.45% 93.499 NaCl 25,000 unit In 0.45 % NaCl 1 250ml.bag @ 18 UNITS/KG/HR 13.39 mls/hr IV .[id number] [facility] Rx#: [id number] Other: Voiding Method Toilet Toilet # Voids 1 - Labs CBC & Chem 7: 10/02/23 08:44 10/02/23 08:52 Labs: Abnormal Lab Results - Last 24 Hours (Table) 10/01/23 10/01/23 10/01/23 Range/Units 12:11 17:07 21:26 ABG pO2 (83-108) mmHg ABG Total CO2 (19-24) mmol/L ABG O2 Saturation (94-97) % POC Glucose (mg/dL) 186 H 331 H 127 H (70-110) mg/dL 10/01/23 10/02/23 10/02/23 Range/Units 21:40 02:35 03:32 ABG pO2 69 L (83-108) mmHg ABG Total CO2 26 H (19-24) mmol/L ABG O2 Saturation 93.4 L (94-97) % POC Glucose (mg/dL) 156 H 134 H (70-110) mg/dL 10/02/23 Range/Units 07:42 ABG pO2 (83-108) mmHg ABG Total CO2 (19-24) mmol/L ABG O2 Saturation (94-97) % POC Glucose (mg/dL) 173 H (70-110) mg/dL Microbiology - Last 24 Hours (Table) 09/30/23 12:30 Gram Stain - Preliminary Bronchoalviolar Lavage - Right
[2023-10-02] MEDS: METOPROLOL TARTRATE 25 MG TAB PO STA (13:22)
[2023-10-02] MEDS: MAGNESIUM SULFATE-D5W PMX 1 GM in DEXTROSE/WATER 1 100ML.BAG IVPB SCH (14:23)
--- NOTE | 2023-10-02 15:31 | P.PN ---
Subjective Progress Note Date: 10/02/23 CHIEF COMPLAINT: Cholecystitis HISTORY OF PRESENT ILLNESS: The patient is a 68-year-old admitted for chronic cough. Transferred to the intensive care unit due to acute hypoxia acute atrial fibrillation with rapid ventricular response. He is sitting up in a chair. No reports of abdominal pain. ROS: No reports of nausea and vomiting. No fevers or chills. No new chest pain. PHYSICAL EXAM: VITAL SIGNS: Reviewed CONSTITUTIONAL: Well developed and in no acute distress. EYES: Conjuctivae without sclera icterus. Extraocular movements grossly intact. HEAD, EARS, NOSE, THROAT: Moist buccal mucosa. Head is atraumatic, normocephalic. Hears conversational speech. No nasal drainage. RESPIRATORY: Non-labored respirations and equal bilateral excursions. CARDIOVASCULAR: Palpable 2+ radial pulses. ABDOMEN: No peritonitis. MUSCULOSKELETAL: No gross deformity of the lower extremities noted. No clubbing. No cyanosis. SKIN: Good skin turgor. Well perfused. NEUROLOGIC: Cranial nerves II through XII grossly intact. No focal or lateralizing signs. PSYCH: Appropriate affect. Alert and oriented to person, place and time. CLINICAL LABS: Reviewed. WBC elevated 9.0-10.68, now over 18,000, leukocytosis ASSESSMENT: 1. Gallstones with cholecystitis 2. Portal vein thrombosis 3. Chronic cough 4. Leukocytosis 5. Acute hypoxia 6. Atrial fibrillation rapid ventricular response PLAN: 1. Patient has multiple medical comorbidities including portal vein thrombosis and is asymptomatic. 2. No acute surgical invention at this time. 3. Rate control with Cardizem drip and anticoagulant Objective - Vital Signs Vital signs: Vital Signs Temp 97.8 F 10/02/23 13:00 Pulse 65 10/02/23 15:00 Resp 24 10/02/23 15:00 BP 129/76 10/02/23 15:00 Pulse Ox 91 L 10/02/23 15:00 FiO2 70 10/02/23 13:00 Intake & Output 10/01/23 10/02/23 10/02/23 18:59 06:59 18:59 Intake Total 93.499 225 Output Total 925 Balance 93.499 -700 Weight 68.4 kg Intake: IV 25 Diltiazem 125 mg In 25 Sodium Chloride 0.9% 100 ml @ 5 MG/HR 5 mls/hr IV .Q24H [facility] Rx#:[id number] Intake, IV Titration 93.499 Amount Heparin Sod,Pork in 0.45% 93.499 NaCl 25,000 unit In 0.45 % NaCl 1 250ml.bag @ 18 UNITS/KG/HR 13.39 mls/hr IV .[id number] [facility] Rx#: [id number] Oral 200 Output: Urine 925 Other: Voiding Method Toilet Toilet Urinal # Voids 1 - Labs CBC & Chem 7: 10/02/23 08:44 10/02/23 08:52 Labs: Abnormal Lab Results - Last 24 Hours (Table) 10/01/23 10/01/23 10/01/23 Range/Units 17:07 21:26 21:40 WBC (3.8-10.6) k/uL Hgb (13.0-17.5) gm/dL RDW (11.5-15.5) % ABG pO2 (83-108) mmHg ABG Total CO2 (19-24) mmol/L ABG O2 Saturation (94-97) % Sodium (137-145) mmol/L Glucose (74-99) mg/dL POC Glucose (mg/dL) 331 H 127 H 156 H (70-110) mg/dL Magnesium (1.6-2.3) mg/dL 10/02/23 10/02/23 10/02/23 Range/Units 02:35 03:32 07:42 WBC (3.8-10.6) k/uL Hgb (13.0-17.5) gm/dL RDW (11.5-15.5) % ABG pO2 69 L (83-108) mmHg ABG Total CO2 26 H (19-24) mmol/L ABG O2 Saturation 93.4 L (94-97) % Sodium (137-145) mmol/L Glucose (74-99) mg/dL POC Glucose (mg/dL) 134 H 173 H (70-110) mg/dL Magnesium (1.6-2.3) mg/dL 10/02/23 10/02/23 Range/Units 08:44 08:52 WBC 18.4 H (3.8-10.6) k/uL Hgb 12.5 L (13.0-17.5) gm/dL RDW 16.3 H (11.5-15.5) % ABG pO2 (83-108) mmHg ABG Total CO2 (19-24) mmol/L ABG O2 Saturation (94-97) % Sodium 135 L (137-145) mmol/L Glucose 167 H (74-99) mg/dL POC Glucose (mg/dL) (70-110) mg/dL Magnesium 1.4 L (1.6-2.3) mg/dL Microbiology - Last 24 Hours (Table) 09/30/23 12:30 Gram Stain - Preliminary Bronchoalviolar Lavage - Right Bronchial Washings Culture - Preliminary
[2023-10-02 16:20] LABS: Glucose,Whole Blood 279 mg/dL (70-110)
[2023-10-02] MEDS: FORMOTEROL FUMARATE 20 MCG/2 ML NEBU INHALATION SCH (20:20)
[2023-10-02 21:18] LABS: Glucose,Whole Blood 250 mg/dL (70-110)
[2023-10-02] MEDS: METOPROLOL TARTRATE 50 MG TAB PO SCH (21:47)
[2023-10-03 06:17] LABS: Glucose,Whole Blood 289 mg/dL (70-110)
[2023-10-03 06:50] LABS: Anisocytosis Slight; Basophils % (A) 0 %; Eosinophils % (A) 0 %; HCT 40.2 % (39.0-53.0); HGB 12.6 gm/dL (13.0-17.5); Hypochromasia Marked; Lymphocytes # (A) 0.3 k/uL (1.0-4.8); Lymphocytes % (A) 2 %; MCHC 31.4 g/dL (31.0-37.0); MCV 92.2 fL (80.0-100.0); Mean Platelet Volume 8.5; Monocytes # (A) 0.6 k/uL (0-1.0); Monocytes % (A) 4 %; Neutrophils # (A) 14.4 k/uL (1.3-7.7); Neutrophils % (A) 94 %; Platelet Count 302 k/uL (150-450); RBC 4.36 m/uL (4.30-5.90); RDW 16.4 % (11.5-15.5); WBC 15.4 k/uL (3.8-10.6)
[2023-10-03 07:00] LABS: African American GFR (CKD) >90 (>60 ml/min/1.73 sqM); Anion Gap 6 mmol/L; Blood Urea Nitrogen 29 mg/dL (9-20); Carbon Dioxide 28 mmol/L (22-30); Chloride 100 mmol/L (98-107); Glucose 318 mg/dL (74-99); Non-African American GFR(CKD) >90 (>60 ml/min/1.73 sqM); Potassium 4.6 mmol/L (3.5-5.1); Sodium 134 mmol/L (137-145)
--- NOTE | 2023-10-03 08:08 | XR ---
EXAMINATION TYPE: XR chest 1V portable DATE OF EXAM: 10/03/2023 4:55 AM CLINICAL INDICATION:Male, 68 years old with history of SOB; [facility] COMPARISON: Chest radiographs from 09/24/2023. TECHNIQUE: XR chest 1V portable Frontal view of the chest. FINDINGS: Lungs/Pleura: Similar consolidation changes right upper lung with focal airspace disease and blunting of the right costophrenic angle. There is no evidence of pleural effusion, focal consolidation, or p neumothorax. Pulmonary vascularity: Unremarkable. Heart/mediastinum: Cardiomediastinal silhouette is unremarkable. Musculoskeletal: No acute osseous pathology. IMPRESSION: Similar multifocal airspace opacities, right pleural effusion and consolidation right midlung.
[2023-10-03] MEDS: ACETAMINOPHEN TAB 325 MG TAB PO PRN (08:29)
[2023-10-03 11:16] LABS: Glucose,Whole Blood 396 mg/dL (70-110)
--- NOTE | 2023-10-03 12:06 | P.PN ---
Subjective Progress Note Date: 10/03/23 68 year old M with PMH of NIDDM, HTN, HLD, COPD not on home O2 presented to the ED for progressively worsening exertional SOB associated with productive cough. Also 20 lbs weight loss over 6 weeks due to poor appetite. Attempted multiple rounds of antibiotics, steroids and inhalers without much relief. In the ED he underwent extensive evaluation. BP 105/59, HR 96, T 97.1F, RR 18, 96% on RA. CBC, Coag panel, CMP significant for RBC 4.25, Hg 12.4, Hct 37.9, PT 13.7, INR 1.3, Na 136, glu 137, T. Bili 2.9, AST 97, ALT 81, alk phos 407, alb 3.3. Troponin < 0.012. Procal 0.18. EKG showed sinus arrhythmia with RBBB. CXR right midlung consolidation. CT chest performed showed RUL consolidation with volume loss and interstitial edema in the right lung with moderate right pleural effusion. Patient was started on Azithromycin and admitted for Pulmonary evaluation. Liver US was ordered for transaminitis which showed possible clot in the MPV and LPV and GB wall thickening with pericholecystic fluid and gallstone. He was started on Zosyn and Heparin drip as well. Vascular surgery consulted, CTA AP completed confirming portal vein thrombosis MPV into the LPV, recommended no surgical intervention, Hematology consulted and heparin drip transitioned to Eliquis on 09/30. Surgery consulted for possible cholecystitis. CTA AP showed a contracted gall bladder. Given his lack of symptoms, Zosyn discontinued and patient advised no acute surgical intervention and outpatient follow up. He underwent bronchoscopy with BAL on 09/29 where biopsies and cultures were obtained. He failed his home O2 eval on 09/30. A-team called on 09/30 for hypoxia, required BiPAP, CXR showing worsening consolidation in the left lung, given Lasix 80 mg IV x 1, DuoNeb treatment, SoluMedrol 125 mg IV and transferred to ICU for closer monitoring. Also noted to be tachycardic with EKG showing A-Fib with RVR. Started on Cardizem drip and Cardiology consulted. BNP 1090. He is currently maintained on Lasix 40 mg IV BID pending Echocardiogram. 10/02 Patient was seen and examined. He continues to feel SOB thought slightly better than yesterday. He is on 15L non rebreather. Maintained on Lasix 40 mg IV BID with Echocardiogram pending. His HR is in the 60s on telemetry thus I will discontinue Cardizem drip. CXR done today appears similar to yesterday with right midlung consolidation and extensive left lung consolidation. Pro-ryan is 0.23. BNP is 1090. CBC and BMP significant for WBC 15.4, Hg 12.6, Na 134, BUN 29, glu 318. Mag 2. He is currently in a negative fluid balance of 1.327L. Weight change 74.389-72.8 kg. General: non toxic, moderate distress, appears at stated age Derm: warm, dry Head: atraumatic, normocephalic, symmetric Eyes: EOMI, no lid lag, anicteric sclera Mouth: no lip lesion, mucus membranes moist Cardiovascular: S1S2 irreg, no murmur Lungs: Coarse BS bilateral, no rhonchi, no rales , tachypneic Ext: no gross muscle atrophy, no edema, no contractures Neuro: no focal neuro deficits Psych: Alert, oriented, appropriate affect Based on my assessment of this patient, this patient meets a high complexity level of care. Acute hypoxic respiratory failure secondary to known RUL consolidation (mass v ersus post obstructive PNA) with new extensive left sided consolidation: Concerns for flash pulmonary edema. Pro-ryan negative less concerning for infection. BNP marginally elevated at 1090. Continue Lasix 40 mg IV BID, monitor electrolytes and renal function. Completed a course of Azithromycin. COPD treatment as below. Strict intake and outtake. Daily weight. Attempt to wean O2. Pulmonary on board. Diabetes mellitus with hyperglycemia: POC glucose ranging from 250-389 over the past 24H. Worsened with steroids. A1c is 6.2. Continue ISS, Accuchecks ACHS and hypoglycemic precautions. Add Novolog 5 units TID. Atrial fibrillation with RVR: Metoprolol 25 mg PO BID. Cardizem drip discontinued 10/02. Already on AC with Eliquis. TSH wnl. Echocardiogram pending. Maintain K > 4 and Mg > 2. Cardiology on board. Right perihilar mass like consolidation: Status post bronchoscopy. BAL Cultures negative. Pathology pending. Suspicious for malignancy given weight loss and history of heavy smoking. He has also failed multiple rounds of PO antibiotics. Procal 0.18-0.23. Completed 3 days of Azithromycin. Prerenal azotemia likely related to forced diuresis Transaminitis: Obstructive likely related to below. Portal vein thrombosis seen on Liver US: Vascular Surgery recommends no surgical intervention. Eliquis 10 mg PO BID. Follow up with Hematology in the outpatient setting. Possible cholecystitis seen on Liver US: CT shows no findings of cholecystitis. No antibiotics at this time. Surgery recommends outpatient follow up. Acute on chronic COPD exacerbation: SoluMedrol 60 mg IV Q6H. DuoNeb scheduled and PRN for SOB/wheezing. Symbicort 1 INH BID. Normocytic anemia: No signs of bleeding. Trend. Supratherapeutic INR: Likely related to livery dysfunction. Hypertension: Amlodipine 5 mg PO QD. Lisinopril 40 mg PO QD. BPH: Doxazosin 4 mg PO QD. Proscar 5 mg PO QD. CODE STATUS: FULL CODE DVT Prophylaxis: Eliquis GI Prophylaxis: Protonix PO Designated medical POA if patient is not able to make medical decisions for themselves: I have reviewed the following solar consultant notes: Pulmonary, Cardiology, Surgery note. I have reviewed the results of the following tests: CBC, BMP, Procal, BNP, Mag. I have ordered the following tests: Echo pending. CBC, CXR and BMP tomorrow. I have discussed the care of this patient with the following independent historian: RN regarding hyperglycemia. I have independently interpreted the following test below: CXR. I have discussed the management of this patient with the following physician: Objective - Vital Signs Vital signs: Vital Signs Temp 97.7 F 10/03/23 04:00 Pulse 66 10/03/23 11:00 Resp 21 10/03/23 11:00 BP 122/61 10/03/23 11:00 Pulse Ox 92 L 10/03/23 11:00 FiO2 70 10/03/23 00:09 Intake & Output 10/02/23 10/03/23 10/03/23 18:59 06:59 18:59 Intake Total 745 392.083 55 Output Total 950 1515 450 Balance -205 -1122.917 -395 Weight 68.4 kg 72.8 kg Intake: IV 345 275 55 0.9% NS Carrier 110 40 Diltiazem 125 mg In 45 65 15 Sodium Chloride 0.9% 100 ml @ 5 MG/HR 5 mls/hr IV .Q24H [facility] Rx#:[id number] Magnesium Sulfate-D5w Pmx 300 100 1 gm In Dextrose/Water 1 100ml.bag @ 100 mls/hr IVPB Q1H [facility] Rx#: [id number] Intake, IV Titration 117.083 Amount Diltiazem 125 mg In 117.083 Sodium Chloride 0.9% 100 ml @ 5 MG/HR 5 mls/hr IV .Q24H [facility] Rx#:[id number] Oral 400 Output: Urine 950 1515 450 Other: Voiding Method Urinal Indwelling Catheter - Labs CBC & Chem 7: 10/03/23 06:15 10/03/23 06:15 Labs: Abnormal Lab Results - Last 24 Hours (Table) 10/02/23 10/02/23 10/03/23 Range/Units 16:19 21:16 06:15 WBC 15.4 H (3.8-10.6) k/uL Hgb 12.6 L (13.0-17.5) gm/dL RDW 16.4 H (11.5-15.5) % Neutrophils # 14.4 H (1.3-7.7) k/uL Lymphocytes # 0.3 L (1.0-4.8) k/uL Sodium (137-145) mmol/L BUN (9-20) mg/dL Glucose (74-99) mg/dL POC Glucose (mg/dL) 279 H 250 H (70-110) mg/dL 10/03/23 10/03/23 10/03/23 Range/Units 06:15 06:15 11:14 WBC (3.8-10.6) k/uL Hgb (13.0-17.5) gm/dL RDW (11.5-15.5) % Neutrophils # (1.3-7.7) k/uL Lymphocytes # (1.0-4.8) k/uL Sodium 134 L (137-145) mmol/L BUN 29 H (9-20) mg/dL Glucose 318 H (74-99) mg/dL POC Glucose (mg/dL) 289 H 396 H (70-110) mg/dL Microbiology - Last 24 Hours (Table) 09/30/23 12:30 Gram Stain - Final Bronchoalviolar Lavage - Right Bronchial Washings Culture - Final
[2023-10-03] MEDS: INSULIN ASPART (NovoLOG) 100 UNIT/ML VIAL SQ SCH (12:09)
--- NOTE | 2023-10-03 14:02 | P.PN ---
Subjective Progress Note Date: 10/03/23 Principal diagnosis: Acute hypoxic respiratory failure secondary to right upper lobe consolidation, possible right lung mass/lung cancer Patient is a 68-year-old white male with past medical history significant for hypertension, hyperlipidemia, diabetes, chronic obstructive pulmonary disease, former tobacco dependence. Primary care provider is Dr. Castelan. Patient's chief complaint is a persistent cough for the last 2 months. He has been seen by multiple urgent care clinics, treated with courses of antibiotics and steroids without any significant improvement in his symptoms. He did go to his primary care provider yesterday, who directed him to the emergency department. He is complaining of a persistent cough over the last 2 months. Previously productive with yellow sputum, now non-productive. No hemoptysis. The cough has interfered with his sleeping. He is also been short of breath with minimal exertion. His rescue inhaler has not been providing much relief. He has been generally weak. Denies fevers. Denies sick contacts. He does have history of COPD. He has history of heavy tobacco dependence, quitting approximately 1 month ago. Reports [id number] smoking history. He has had also poor appetite. Endorses 20 pound weight loss over 2-month timeframe. Denies any history of cancer. Chest x-ray done arrival shows a suspicious right perihilar masslike opacity and volume loss. CBC unremarkable without leukocytosis. CMP: Sodium 136, potassium 4.3, chloride 105, serum bicarb 23, BUN 19, creatinine 0.83, glucose 137. Normal saline infusing at 50 MLS per hour. LFTs are mildly elevated. AST 97, ALT 81, ALP 407. Total bilirubin 2.9. Troponin less than 0.012. Patient is currently resting comfortably on room air. He continues to have persistent cough, which is currently nonproductive. Afebrile. Vital signs are stable. Patient will be taken down for CT of the chest tonight. The patient is seen today September 30, 2023 in follow-up on the regular medical floor. He is currently resting in bed. Awake and alert in no acute distress. He did not denies any worsening shortness of breath, cough or congestion. He is maintaining good O2 saturations in room air. He remains on normal saline at 50 MLS per hour. Continued on a heparin drip. Plan is for bronchoscopy with biopsies today. Heparin will be discontinued at 10 AM. Ultrasound of the chest revealed a right sided pleural effusion with a 4.6 cm pocket. Ultrasound of the liver revealed findings suspicious for portal venous thrombosis. Heterogeneity could be related to underlying hepatocellular disease. CAT scan of the abdomen pelvis revealed portal vein thrombosis extending from the main portal vein into the left portal vein. The right portal vein remains patent. No involvement in the superior mesenteric vein. Minimal abdominal volume of abdominal and pelvic ascites. Right pleural effusion. White count 10.6. Hemoglobin 11.6. Platelets 283. Sodium 139. Potassium 3.9. Bicarb 22. BUN 12. Creatinine 0.8. Glucose 79. He is continued on DuoNeb inhalations, Symbicort, prednisone. Antibiotics in the form of Zosyn and Zithromax. The patient is seen today October 01, 2023 in follow-up on the regular medical floor. He is awake and alert in no acute distress. Resting comfortably in bed. Still with a loose nonproductive cough. Continue good O2 saturations in the mid 90s on 2 L/min per nasal cannula. He has normal saline at 50 MLS per hour. Continued on a heparin drip. He did undergo bronchoscopy with biopsies and BAL. Cultures and cytology pending. White count 15.2. Hemoglobin 11.6. Platelets 253. Sodium 139. Potassium 4.2. Bicarb 22. BUN 13. Creatinine 0.67. Glucose 103. He remains on DuoNeb inhalations, Symbicort, prednisone taper. Antibiotics in the form of azithromycin. Robitussin and Tessalon Perles for his cough. The patient is seen today October 02, 2023 in follow-up in the intensive care unit. Approximately 3:00 this morning the patient had been coughing excessively and requiring a 15 L nonrebreather mask to maintain O2 saturations in the 90s. Chest x-ray revealed right upper lobe addition with volume loss. Concern for obstructing mass or lesion. He is status post bronchoscopy with biopsies. He did develop extensive consolidation of the left upper and lower lobes. Possibly aspiration. He also developed atrial fibrillation with a rapid ventricular response. White count 18.4. Hemoglobin 12.5. Platelets 257. Sodium 135. Potassium 4.3. Bicarb 29. BUN 18. Creatinine 0.68. Glucose 167. Arterial blood gases on 75% FiO2 revealed a PaO2 of 69, pCO2 43 and a pH of 7.38. proBNP 1090. TSH 0.582. He has been initiated on Eliquis. He remains on bronchodilators, steroids, Tessalon Perles. He was given Lasix 80 mg IVP x 1. Remains on a Cardizem drip at 5 mg an hour. Today on 10/03/2023, remains in the ICU on 15 L high flow nasal cannula. Patient is off Cardizem drip, he is on anticoagulation therapy for portal vein thrombosis. Seems to be comfortable, not in distress. Awaiting the final pathology report from his bronchoscopy and endobronchial biopsy. In the meantime I would recommend an ultrasound of the chest, may consider right-sided thoracentesis if pathology comes back negative for malignancy. WBC count is 15.4 hemoglobin 12.6 basic metabolic profile is normal and renal profile is normal chest x-ray continues to show multifocal airspace opacities with a right pleural effusion and consolidation of the right midlung. Objective - Vital Signs Vital signs: Vital Signs Temp 98.2 F 10/03/23 12:15 Pulse 64 10/03/23 12:15 Resp 27 H 10/03/23 12:15 BP 133/81 10/03/23 12:15 Pulse Ox 93 L 10/03/23 12:15 FiO2 70 10/03/23 00:09 Intake & Output 10/02/23 10/03/23 10/03/23 18:59 06:59 18:59 Intake Total 745 392.083 65 Output Total 950 1515 650 Balance -205 -1122.917 -585 Weight 68.4 kg 72.8 kg Intake: IV 345 275 65 0.9% NS Carrier 110 50 Diltiazem 125 mg In 45 65 15 Sodium Chloride 0.9% 100 ml @ 5 MG/HR 5 mls/hr IV .Q24H [facility] Rx#:[id number] Magnesium Sulfate-D5w Pmx 300 100 1 gm In Dextrose/Water 1 100ml.bag @ 100 mls/hr IVPB Q1H [facility] Rx#: [id number] Intake, IV Titration 117.083 Amount Diltiazem 125 mg In 117.083 Sodium Chloride 0.9% 100 ml @ 5 MG/HR 5 mls/hr IV .Q24H [facility] Rx#:[id number] Oral 400 Output: Urine 950 1515 650 Other: Voiding Method Urinal Indwelling Catheter - Exam GENERAL EXAM: Reveals 68-year-old white male in no distress on 15 L high flow nasal cannula HEAD: Normocephalic. EYES: Normal reaction of pupils, equal size. NOSE: Clear with pink turbinates. THROAT: No erythema or exudates. NECK: No masses, no JVD. CHEST: No chest wall deformity. LUNGS: Diminished breath sounds at the bases specially at the right base no rhonchi no wheezes CVS: S1 and S2 normal with no audible murmur, regular rhythm. ABDOMEN: No hepatosplenomegaly, normal bowel sounds, no guarding or rigidity. SKIN: No rashes CENTRAL NERVOUS SYSTEM: Alert oriented x 3 no gross focal neurologic deficits EXTREMITIES: No clubbing edema or cyanosis - Labs CBC & Chem 7: 10/03/23 06:15 10/03/23 06:15 Labs: Abnormal Lab Results - Last 24 Hours (Table) 10/02/23 10/02/23 10/03/23 Range/Units 16:19 21:16 06:15 WBC 15.4 H (3.8-10.6) k/uL Hgb 12.6 L (13.0-17.5) gm/dL RDW 16.4 H (11.5-15.5) % Neutrophils # 14.4 H (1.3-7.7) k/uL Lymphocytes # 0.3 L (1.0-4.8) k/uL Sodium (137-145) mmol/L BUN (9-20) mg/dL Glucose (74-99) mg/dL POC Glucose (mg/dL) 279 H 250 H (70-110) mg/dL 10/03/23 10/03/23 10/03/23 Range/Units 06:15 06:15 11:14 WBC (3.8-10.6) k/uL Hgb (13.0-17.5) gm/dL RDW (11.5-15.5) % Neutrophils # (1.3-7.7) k/uL Lymphocytes # (1.0-4.8) k/uL Sodium 134 L (137-145) mmol/L BUN 29 H (9-20) mg/dL Glucose 318 H (74-99) mg/dL POC Glucose (mg/dL) 289 H 396 H (70-110) mg/dL Microbiology - Last 24 Hours (Table) 09/30/23 12:30 Gram Stain - Final Bronchoalviolar Lavage - Right Bronchial Washings Culture - Final Assessment and Plan Assessment: Impression: Acute hypoxemic respiratory failure secondary to right upper lobe consolidation and new extensive pulmonary vascular congestion versus aspiration pneumonia Atrial fibrillation with a rapid ventricular response, transition to Eliquis Right perihilar masslike consolidation, right pleural effusion measuring less than 5 cm. Bronchoscopy with biopsies on September 30, 2023. Cultures and cytology pending Unintentional 20 pound weight loss, over 2-month timeframe Chronic obstructive pulmonary disease Former tobacco dependence, quitting approximately 1 month ago, with [id number] history Elevated liver enzymes, unknown significance, ultrasound of liver reveals findings suspicious for portal venous thrombosis. Hypertension History of hyperlipidemia Diabetes mellitus type 2 Recommendation: Continue present supportive care measures Awaiting final pathology to become available from his last bronchoscopy and endobronchial biopsies In the meantime would recommend ultrasound of the chest Continue anticoagulation therapy patient is on Eliquis Continue bronchodilators and steroids for underlying COPD Echocardiogram remains pending patient was seen by cardiology Based on the pathology report from his endobronchial biopsies further recommendations will follow Will continue to follow closely. Time with Patient: Less than 30
--- NOTE | 2023-10-03 14:49 | P.PN ---
Subjective Progress Note Date: 10/03/23 CHIEF COMPLAINT: Cholecystitis HISTORY OF PRESENT ILLNESS: Patient required transfer to the ICU over the weekend due to hypoxia and atrial fibrillation. Patient is on 15 L of oxygen. Afebrile. White count has decreased from 18-15. He denies any nausea or vomiting. He does have some mild discomfort in the right upper quadrant. Patient anticoagulated with Eliquis for his A-fib PHYSICAL EXAM: VITAL SIGNS: Reviewed. GENERAL: Well-developed in no acute distress. HEENT: No sclera icterus. Extraocular movements grossly intact. Moist buccal mucosa. Head is atraumatic, normocephalic. ABDOMEN: Soft. Nondistended. mild tenderness RUQ NEUROLOGIC: Alert and oriented. Cranial nerves II through XII grossly intact. ASSESSMENT: 1. Gallstones with cholecystitis 2. Portal vein thrombosis 3. Chronic cough 4. Leukocytosis 5. Acute hypoxia 6. Atrial fibrillation rapid ventricular response 7. Right perihilar masslike consolidation status post bronchoscopy PLAN: -No surgical intervention planned at this time -Patient has multiple comorbidities -Continue supportive care Physician Putty Remover note has been reviewed by physician. Signing provider agrees with the documented findings, assessment, and plan of care. Objective - Vital Signs Vital signs: Vital Signs Temp 98.2 F 10/03/23 12:15 Pulse 56 L 10/03/23 14:00 Resp 18 10/03/23 14:00 BP 121/67 10/03/23 14:00 Pulse Ox 95 10/03/23 14:00 FiO2 70 10/03/23 00:09 Intake & Output 10/02/23 10/03/23 10/03/23 18:59 06:59 18:59 Intake Total 745 392.083 85 Output Total 950 1515 780 Balance -205 -1122.917 -695 Weight 68.4 kg 72.8 kg Intake: IV 345 275 85 0.9% NS Carrier 110 70 Diltiazem 125 mg In 45 65 15 Sodium Chloride 0.9% 100 ml @ 5 MG/HR 5 mls/hr IV .Q24H [facility] Rx#:[id number] Magnesium Sulfate-D5w Pmx 300 100 1 gm In Dextrose/Water 1 100ml.bag @ 100 mls/hr IVPB Q1H [facility] Rx#: [id number] Intake, IV Titration 117.083 Amount Diltiazem 125 mg In 117.083 Sodium Chloride 0.9% 100 ml @ 5 MG/HR 5 mls/hr IV .Q24H [facility] Rx#:[id number] Oral 400 Output: Urine 950 1515 780 Other: Voiding Method Urinal Indwelling Catheter - Labs CBC & Chem 7: 10/03/23 06:15 10/03/23 06:15 Labs: Abnormal Lab Results - Last 24 Hours (Table) 10/02/23 10/02/23 10/03/23 Range/Units 16:19 21:16 06:15 WBC 15.4 H (3.8-10.6) k/uL Hgb 12.6 L (13.0-17.5) gm/dL RDW 16.4 H (11.5-15.5) % Neutrophils # 14.4 H (1.3-7.7) k/uL Lymphocytes # 0.3 L (1.0-4.8) k/uL Sodium (137-145) mmol/L BUN (9-20) mg/dL Glucose (74-99) mg/dL POC Glucose (mg/dL) 279 H 250 H (70-110) mg/dL 10/03/23 10/03/23 10/03/23 Range/Units 06:15 06:15 11:14 WBC (3.8-10.6) k/uL Hgb (13.0-17.5) gm/dL RDW (11.5-15.5) % Neutrophils # (1.3-7.7) k/uL Lymphocytes # (1.0-4.8) k/uL Sodium 134 L (137-145) mmol/L BUN 29 H (9-20) mg/dL Glucose 318 H (74-99) mg/dL POC Glucose (mg/dL) 289 H 396 H (70-110) mg/dL Microbiology - Last 24 Hours (Table) 09/30/23 12:30 Gram Stain - Final Bronchoalviolar Lavage - Right Bronchial Washings Culture - Final
--- NOTE | 2023-10-03 15:53 | US ---
EXAMINATION TYPE: US chest DATE OF EXAM: 10/03/2023 COMPARISON: NONE CLINICAL INDICATION: Male, 68 years old with history of pleural effusion; SOB, rt effusion TECHNIQUE: Targeted ultrasound of the posterior lower right EXAM MEASUREMENTS: Right Pleural Effusion pocket size: 9.2cm - 4.2cm into pocket lung tissue is seen Right skin surface to fluid distance: 2.7 cm Right side marked for possible thoracentesis outside the dept. Pulmonologists are able to review the images in the patient?s EMR. IMPRESSIONS: Right pleural effusion as described above
[2023-10-03 16:23] LABS: Glucose,Whole Blood 204 mg/dL (70-110)
--- NOTE | 2023-10-03 17:06 | CA ---
Transthoracic Echo Report Name: Barron Everett Age: 68 Gender: M : 1955 Exam Date: 10/03/2023 07:50 Exam Location: [facility] Ht (in): 65 Wt (lb): 164 Ordering Physician: Mayte Finn MD Attending/Referring Phys: Health And Safety Trainer Dana Van RDCS Procedure CPT: Indications: sob Cardiac Hx: Technical Quality: Fair Contrast 1: Total Dose (mL): Contrast 2: Total Dose (mL): MEASUREMENTS (Male / Female) Normal Values 2D ECHO LV Diastolic Diameter PLAX 4.4 cm 4.2 - 5.9 / 3.9 - 5.3 cm LV Systolic Diameter PLAX 2.6 cm IVS Diastolic Thickness 1.2 cm 0.6 - 1.0 / 0.6 - 0.9 cm LVPW Diastolic Thickness 1.2 cm 0.6 - 1.0 / 0.6 - 0.9 cm LV Relative Wall Thickness 0.5 LVOT Diameter 2.2 cm Ascending Aorta Diameter 3.1 cm DOPPLER AV Peak Velocity 129.0 cm/s AV Peak Gradient 6.7 mmHg AV Mean Velocity 80.7 cm/s AV Mean Gradient 3.1 mmHg AV Velocity Time Integral 24.3 cm LVOT Peak Velocity 100.9 cm/s LVOT Peak Gradient 4.1 mmHg LVOT Velocity Time Integral 22.8 cm LVOT Stroke Volume 84.9 cm??? LVOT Stroke Volume Index 46.7 ml/m??? LVOT Cardiac Index 2912.7 cm???/min???m??? AV Area Cont Eq vti 3.5 cm??? AV Area Cont Eq pk 2.9 cm??? MV Area PHT 4.1 cm??? Mitral E Point Velocity 68.5 cm/s Mitral A Point Velocity 65.3 cm/s Mitral E to A Ratio 1.0 MV Deceleration Time 187.0 ms TR Peak Velocity 366.3 cm/s TR Peak Gradient 53.7 mmHg Right Atrial Pressure 10.0 mmHg Pulmonary Artery Systolic Pressu 63.7 mmHg Right Ventricular Systolic Press 63.7 mmHg PV Peak Velocity 90.4 cm/s PV Peak Gradient 3.3 mmHg FINDINGS Left Ventricle Left ventricular ejection fraction is estimated at 60-65 %. Mildly increased septal wall thickness. Left ventricular cavity size normal. No obvious regional wall motion abnormalities. Right Ventricle Moderate right ventricular dilatation with normal function. Severe pulmonary hypertension. Right Atrium Mild right atrial dilatation. Left Atrium Normal left atrial size. Mitral Valve Structurally normal mitral valve. No mitral stenosis, regurgitation or prolapse. Aortic Valve Trileaflet aortic valve. No aortic valve stenosis or regurgitation. Tricuspid Valve Structurally normal tricuspid valve. No tricuspid stenosis. Mild tricuspid regurgitation. Pulmonic Valve Structurally normal pulmonic valve. Trace pulmonic regurgitation. No pulmonic stenosis. Pericardium No pericardial effusion. Aorta Normal size aortic root and proximal ascending aorta. CONCLUSIONS Enlarged right ventricle Severe pulmonary hypertension Normal LV size and function Previewed by: Dr. Alec Rogers MD (Electronically Signed) Final Date: 03 October 2023 17:05
[2023-10-03] MEDS: SPIRONOLACTONE 25 MG TAB PO STA (18:16)
[2023-10-03] MEDS: DILTIAZEM DRIP BOLUS FROM BAG 1 MG SOLN IV ONE (21:15)
[2023-10-03] MEDS: DILTIAZEM 125 MG in SODIUM CHLORIDE 0.9% 100 ML IV SCH (21:15)
[2023-10-03] MEDS: APIXABAN 5 MG TAB PO SCH (21:31)
[2023-10-03] MEDS: FUROSEMIDE 10 MG/ML 4 ML VIAL IV STA (21:32)
[2023-10-03 21:38] LABS: Glucose,Whole Blood 264 mg/dL (70-110)
[2023-10-04 06:31] LABS: ALT 105 U/L (4-49); AST 104 U/L (17-59); African American GFR (CKD) >90 (>60 ml/min/1.73 sqM); Albumin 2.8 g/dL (3.5-5.0); Alkaline Phosphatase 421 U/L (38-126); Anion Gap 2 mmol/L; Blood Urea Nitrogen 40 mg/dL (9-20); Carbon Dioxide 32 mmol/L (22-30); Chloride 100 mmol/L (98-107); Glucose 194 mg/dL (74-99); Magnesium 1.7 mg/dL (1.6-2.3); Non-African American GFR(CKD) >90 (>60 ml/min/1.73 sqM); Potassium 4.4 mmol/L (3.5-5.1); Sodium 134 mmol/L (137-145); Total Bilirubin 2.2 mg/dL (0.2-1.3); Total Protein 5.5 g/dL (6.3-8.2)
[2023-10-04 06:54] LABS: Glucose,Whole Blood 187 mg/dL (70-110)
--- NOTE | 2023-10-04 08:21 | XR ---
EXAMINATION TYPE: XR chest 1V portable DATE OF EXAM: 10/04/2023 5:20 AM CLINICAL INDICATION:Male, 68 years old with history of assess lungs; [facility] COMPARISON: Chest radiograph from one day prior. TECHNIQUE: XR chest 1V portable Frontal view of the chest. FINDINGS: Lungs/Pleura: Similar consolidation changes right upper lung with focal airspace disease and blunting of the right costophrenic angle. There is no evidence of pleural effusion, focal consolidation, or p neumothorax. Pulmonary vascularity: Unremarkable. Heart/mediastinum: Cardiomediastinal silhouette is unremarkable. Musculoskeletal: No acute osseous pathology. IMPRESSION: Similar multifocal airspace opacities given differences in technique, right pleural effusion and cons olidation right midlung.
[2023-10-04 08:43] LABS: Anisocytosis Slight; HCT 36.4 % (39.0-53.0); HGB 11.7 gm/dL (13.0-17.5); Hypochromasia Moderate; MCH 29.1 pg (25.0-35.0); MCHC 32.1 g/dL (31.0-37.0); MCV 90.5 fL (80.0-100.0); Platelet Count 326 k/uL (150-450); RBC 4.02 m/uL (4.30-5.90); RDW 16.6 % (11.5-15.5)
[2023-10-04] MEDS: BUMETANIDE 1 MG TAB PO SCH (10:30)
--- NOTE | 2023-10-04 10:46 | P.PN ---
Subjective Progress Note Date: 10/04/23 This is a 70-year-old gentleman with a past medical history significant for diabetes and hypertension and dyslipidemia with no history of coronary artery disease or cardiac arrhythmia. The patient was admitted to the hospital few days ago with persistent cough and congestion was not getting better on out patient treatment and for that reason the patient was presented to the emergency department and subsequently he was admitted. He underwent further evaluation including an x-ray and that showed possible mass/consolidation. Subsequently the patient underwent a CT scan of the chest and that revealed the mass. He underwent bronchoscopy and biopsy but the results still pending at this point. Also the patient was found to have a portal vein thrombus. He is on oral anticoagulation using Eliquis. The patient was going to be discharged later on today but subsequently he was feeling worse with shortness of breath with exertion which has progressed on him associated with congestion as well. He was noted to be in atrial fibrillation with rapid ventricular response which is new to him. He was started on Cardizem IV. Repeated the chest x-ray after he went into respiratory failure revealed possible underlying pneumonia which has progressed significantly versus heart failure. His NT proBNP is not severely elevated. He was only on 2 L oxygen and supposed to go home and oxygen but currently he is on 10 L oxygen to maintain saturation above 90%. He is not experiencing any symptoms of chest pain or chest discomfort. Definitely he is congested on examination with a bilateral rhonchi. The physical examination otherwise is remarkable for stable vital signs with slight tachycardia and ir regular rhythm and no edema was noted in the lower extremities. The EKG showed atrial fibrillation with diffuse nonspecific ST and T wave abnormalities. Progress note October 04, 2023 Patient is doing well from cardiovascular standpoint. Yesterday patient went into A-fib RVR for which she was started on Cardizem drip. He is currently running at 10 mg/h. Heart rate around 110 bpm. Blood pressure is holding well. Good urine output. Yesterday he was transition from IV to oral diuretics. Chest x-ray only shows minimal improvement. He still on high flow nasal oxygen Assessment Acute hypoxic respiratory failure likely to be multifactorial and secondary to pneumonia and heart failure, moderate right-sided pleural effusion HFpEF Severe pulmonary hypertension, likely group 3 Atrial fibrillation with RVR which is a new diagnosis to the patient Right upper lobe mass Multiple comorbid conditions including diabetes and hypertension and dyslipidemia Plan Cardizem drip. Increase metoprolol to 75 mg twice daily Continue Bumex 1 mg p.o. daily. Continue Aldactone 25 mg daily Give 1 dose of magnesium 3 g for low magnesium at 1.7. Repeat magnesium levels tomorrow Objective - Vital Signs Vital signs: Vital Signs Temp 97.7 F 10/04/23 08:00 Pulse 87 10/04/23 09:00 Resp 22 10/04/23 09:00 BP 118/71 10/04/23 09:00 Pulse Ox 92 L 10/04/23 09:00 FiO2 80 10/03/23 21:15 Intake & Output 10/03/23 10/04/23 10/04/23 18:59 06:59 18:59 Intake Total 125 600 30 Output Total 1060 357 130 Balance -935 243 -100 Weight 73.1 kg Intake: IV 125 120 30 0.9% NS Carrier 110 120 30 Diltiazem 125 mg In 15 Sodium Chloride 0.9% 100 ml @ 5 MG/HR 5 mls/hr IV .Q24H [facility] Rx#:[id number] Oral 480 Output: Urine 1060 357 130 Other: Voiding Method Indwelling Catheter Indwelling Catheter # Voids 1 # Bowel Movements 1 - Labs CBC & Chem 7: 10/04/23 05:14 10/04/23 05:41 Labs: Abnormal Lab Results - Last 24 Hours (Table) 10/03/23 10/03/23 10/03/23 Range/Units 11:14 16:22 21:36 WBC (3.8-10.6) k/uL RBC (4.30-5.90) m/uL Hgb (13.0-17.5) gm/dL Hct (39.0-53.0) % RDW (11.5-15.5) % Sodium (137-145) mmol/L Carbon Dioxide (22-30) mmol/L BUN (9-20) mg/dL Glucose (74-99) mg/dL POC Glucose (mg/dL) 396 H 204 H 264 H (70-110) mg/dL Total Bilirubin (0.2-1.3) mg/dL AST (17-59) U/L ALT (4-49) U/L Alkaline Phosphatase (38-126) U/L Total Protein (6.3-8.2) g/dL Albumin (3.5-5.0) g/dL 10/04/23 10/04/23 10/04/23 Range/Units 05:14 05:41 06:52 WBC 15.0 H (3.8-10.6) k/uL RBC 4.02 L (4.30-5.90) m/uL Hgb 11.7 L (13.0-17.5) gm/dL Hct 36.4 L (39.0-53.0) % RDW 16.6 H (11.5-15.5) % Sodium 134 L (137-145) mmol/L Carbon Dioxide 32 H (22-30) mmol/L BUN 40 H (9-20) mg/dL Glucose 194 H (74-99) mg/dL POC Glucose (mg/dL) 187 H (70-110) mg/dL Total Bilirubin 2.2 H (0.2-1.3) mg/dL AST 104 H (17-59) U/L ALT 105 H (4-49) U/L Alkaline Phosphatase 421 H (38-126) U/L Total Protein 5.5 L (6.3-8.2) g/dL Albumin 2.8 L (3.5-5.0) g/dL Microbiology - Last 24 Hours (Table) 09/30/23 12:30 Gram Stain - Final Bronchoalviolar Lavage - Right Bronchial Washings Culture - Final
--- NOTE | 2023-10-04 10:48 | P.PN ---
Subjective Progress Note Date: 10/03/23 This is a 70-year-old gentleman with a past medical history significant for diabetes and hypertension and dyslipidemia with no history of coronary artery disease or cardiac arrhythmia. The patient was admitted to the hospital few days ago with persistent cough and congestion was not getting better on out patient treatment and for that reason the patient was presented to the emergency department and subsequently he was admitted. He underwent further evaluation including an x-ray and that showed possible mass/consolidation. Subsequently the patient underwent a CT scan of the chest and that revealed the mass. He underwent bronchoscopy and biopsy but the results still pending at this point. Also the patient was found to have a portal vein thrombus. He is on oral anticoagulation using Eliquis. The patient was going to be discharged later on today but subsequently he was feeling worse with shortness of breath with exertion which has progressed on him associated with congestion as well. He was noted to be in atrial fibrillation with rapid ventricular response which is new to him. He was started on Cardizem IV. Repeated the chest x-ray after he went into respiratory failure revealed possible underlying pneumonia which has progressed significantly versus heart failure. His NT proBNP is not severely elevated. He was only on 2 L oxygen and supposed to go home and oxygen but currently he is on 10 L oxygen to maintain saturation above 90%. He is not experiencing any symptoms of chest pain or chest discomfort. Definitely he is congested on examination with a bilateral rhonchi. The physical examination otherwise is remarkable for stable vital signs with slight tachycardia and ir regular rhythm and no edema was noted in the lower extremities. The EKG showed atrial fibrillation with diffuse nonspecific ST and T wave abnormalities. Progress note October 03, 2023 Patient is doing well from cardiovascular standpoint. Patient converted out of atrial fibrillation and is maintained in sinus rhythm. Still requiring high flow nasal oxygen, still short of breath. Assessment Acute hypoxic respiratory failure likely to be multifactorial and secondary to pneumonia and heart failure, moderate right-sided pleural effusion Atrial fibrillation with RVR which is a new diagnosis to the patient Right upper lobe mass Multiple comorbid conditions including diabetes and hypertension and dyslipidemia Plan Discontinue IV Lasix. Start p.o. Bumex and Aldactone Continue beta-lilibeth at current dose. Patient is rate controlled in sinus rhythm today. Will discontinue Cardizem Monitor urine output, monitor electrolytes Objective - Vital Signs Vital signs: Vital Signs Temp 97.7 F 10/04/23 08:00 Pulse 87 10/04/23 09:00 Resp 22 10/04/23 09:00 BP 118/71 10/04/23 09:00 Pulse Ox 92 L 10/04/23 09:00 FiO2 80 10/03/23 21:15 Intake & Output 10/03/23 10/04/23 10/04/23 18:59 06:59 18:59 Intake Total 125 600 30 Output Total 1060 357 130 Balance -935 243 -100 Weight 73.1 kg Intake: IV 125 120 30 0.9% NS Carrier 110 120 30 Diltiazem 125 mg In 15 Sodium Chloride 0.9% 100 ml @ 5 MG/HR 5 mls/hr IV .Q24H [facility] Rx#:[id number] Oral 480 Output: Urine 1060 357 130 Other: Voiding Method Indwelling Catheter Indwelling Catheter # Voids 1 # Bowel Movements 1 - Labs CBC & Chem 7: 10/04/23 05:14 10/04/23 05:41 Labs: Abnormal Lab Results - Last 24 Hours (Table) 10/03/23 10/03/23 10/03/23 Range/Units 11:14 16:22 21:36 WBC (3.8-10.6) k/uL RBC (4.30-5.90) m/uL Hgb (13.0-17.5) gm/dL Hct (39.0-53.0) % RDW (11.5-15.5) % Sodium (137-145) mmol/L Carbon Dioxide (22-30) mmol/L BUN (9-20) mg/dL Glucose (74-99) mg/dL POC Glucose (mg/dL) 396 H 204 H 264 H (70-110) mg/dL Total Bilirubin (0.2-1.3) mg/dL AST (17-59) U/L ALT (4-49) U/L Alkaline Phosphatase (38-126) U/L Total Protein (6.3-8.2) g/dL Albumin (3.5-5.0) g/dL 10/04/23 10/04/23 10/04/23 Range/Units 05:14 05:41 06:52 WBC 15.0 H (3.8-10.6) k/uL RBC 4.02 L (4.30-5.90) m/uL Hgb 11.7 L (13.0-17.5) gm/dL Hct 36.4 L (39.0-53.0) % RDW 16.6 H (11.5-15.5) % Sodium 134 L (137-145) mmol/L Carbon Dioxide 32 H (22-30) mmol/L BUN 40 H (9-20) mg/dL Glucose 194 H (74-99) mg/dL POC Glucose (mg/dL) 187 H (70-110) mg/dL Total Bilirubin 2.2 H (0.2-1.3) mg/dL AST 104 H (17-59) U/L ALT 105 H (4-49) U/L Alkaline Phosphatase 421 H (38-126) U/L Total Protein 5.5 L (6.3-8.2) g/dL Albumin 2.8 L (3.5-5.0) g/dL Microbiology - Last 24 Hours (Table) 09/30/23 12:30 Gram Stain - Final Bronchoalviolar Lavage - Right Bronchial Washings Culture - Final
[2023-10-04] MEDS: METOPROLOL TARTRATE 25 MG TAB PO STA (11:00)
[2023-10-04] MEDS: MAGNESIUM SULFATE-D5W PMX 1 GM in DEXTROSE/WATER 1 100ML.BAG IVPB SCH (11:00)
[2023-10-04 11:40] LABS: Glucose,Whole Blood 262 mg/dL (70-110)
[2023-10-04] MEDS: INSULIN ASPART (NovoLOG) 100 UNIT/ML VIAL SQ SCH (12:26)
[2023-10-04] MEDS: SPIRONOLACTONE 25 MG TAB PO SCH (12:26)
--- NOTE | 2023-10-04 13:17 | P.PN ---
Subjective Progress Note Date: 10/04/23 CHIEF COMPLAINT: Cholecystitis HISTORY OF PRESENT ILLNESS: Patient in the ICU for hypoxia and atrial fibr illation. Patient is on 15 L of oxygen. Patient denies any abdominal pain. Denies any nausea or vomiting. He reports appetite is diminished. But what he does ingest is not increasing pain or causing nausea. Afebrile. Afebrile PHYSICAL EXAM: VITAL SIGNS: Reviewed. GENERAL: no acute distress. ABDOMEN: Soft. Nondistended. Nontender NEUROLOGIC: Alert and oriented. Cranial nerves II through XII grossly intact. ASSESSMENT: 1. Gallstones with cholecystitis 2. Portal vein thrombosis 3. Chronic cough 4. Leukocytosis 5. Acute hypoxia 6. Atrial fibrillation rapid ventricular response 7. Right perihilar masslike consolidation status post bronchoscopy PLAN: -No surgical intervention planned at this time -Patient has multiple comorbidities -Continue supportive care Physician Gate Clerk note has been reviewed by physician. Signing provider agrees with the documented findings, assessment, and plan of care. Objective - Vital Signs Vital signs: Vital Signs Temp 97.8 F 10/04/23 12:00 Pulse 79 10/04/23 13:00 Resp 35 H 10/04/23 13:00 BP 92/52 10/04/23 13:00 Pulse Ox 94 L 10/04/23 13:00 FiO2 80 10/03/23 21:15 Intake & Output 10/03/23 10/04/23 10/04/23 18:59 06:59 18:59 Intake Total 125 600 538.75 Output Total 1060 357 255 Balance -935 243 283.75 Weight 73.1 kg 73.1 kg Intake: IV 125 120 70 0.9% NS Carrier 110 120 70 Diltiazem 125 mg In 15 Sodium Chloride 0.9% 100 ml @ 5 MG/HR 5 mls/hr IV .Q24H [facility] Rx#:[id number] Intake, IV Titration 68.75 Amount Diltiazem 125 mg In 68.75 Sodium Chloride 0.9% 100 ml @ Per Protocol IV .Q0M [facility] Rx#:[id number] Oral 480 400 Output: Urine 1060 357 255 Other: Voiding Method Indwelling Catheter Indwelling Catheter Indwelling Catheter # Voids 1 # Bowel Movements 1 - Labs CBC & Chem 7: 10/04/23 05:14 10/04/23 05:41 Labs: Abnormal Lab Results - Last 24 Hours (Table) 10/03/23 10/03/23 10/04/23 Range/Units 16:22 21:36 05:14 WBC 15.0 H (3.8-10.6) k/uL RBC 4.02 L (4.30-5.90) m/uL Hgb 11.7 L (13.0-17.5) gm/dL Hct 36.4 L (39.0-53.0) % RDW 16.6 H (11.5-15.5) % Sodium (137-145) mmol/L Carbon Dioxide (22-30) mmol/L BUN (9-20) mg/dL Glucose (74-99) mg/dL POC Glucose (mg/dL) 204 H 264 H (70-110) mg/dL Total Bilirubin (0.2-1.3) mg/dL AST (17-59) U/L ALT (4-49) U/L Alkaline Phosphatase (38-126) U/L Total Protein (6.3-8.2) g/dL Albumin (3.5-5.0) g/dL 10/04/23 10/04/23 10/04/23 Range/Units 05:41 06:52 11:39 WBC (3.8-10.6) k/uL RBC (4.30-5.90) m/uL Hgb (13.0-17.5) gm/dL Hct (39.0-53.0) % RDW (11.5-15.5) % Sodium 134 L (137-145) mmol/L Carbon Dioxide 32 H (22-30) mmol/L BUN 40 H (9-20) mg/dL Glucose 194 H (74-99) mg/dL POC Glucose (mg/dL) 187 H 262 H (70-110) mg/dL Total Bilirubin 2.2 H (0.2-1.3) mg/dL AST 104 H (17-59) U/L ALT 105 H (4-49) U/L Alkaline Phosphatase 421 H (38-126) U/L Total Protein 5.5 L (6.3-8.2) g/dL Albumin 2.8 L (3.5-5.0) g/dL
--- NOTE | 2023-10-04 13:52 | P.PN ---
Subjective Progress Note Date: 10/04/23 Principal diagnosis: Acute hypoxic respiratory failure secondary to right upper lobe consolidation, possible right lung mass/lung cancer Patient is a 68-year-old white male with past medical history significant for hypertension, hyperlipidemia, diabetes, chronic obstructive pulmonary disease, former tobacco dependence. Primary care provider is Dr. Castelan. Patient's chief complaint is a persistent cough for the last 2 months. He has been seen by multiple urgent care clinics, treated with courses of antibiotics and steroids without any significant improvement in his symptoms. He did go to his primary care provider yesterday, who directed him to the emergency department. He is complaining of a persistent cough over the last 2 months. Previously productive with yellow sputum, now non-productive. No hemoptysis. The cough has interfered with his sleeping. He is also been short of breath with minimal exertion. His rescue inhaler has not been providing much relief. He has been generally weak. Denies fevers. Denies sick contacts. He does have history of COPD. He has history of heavy tobacco dependence, quitting approximately 1 month ago. Reports [id number] smoking history. He has had also poor appetite. Endorses 20 pound weight loss over 2-month timeframe. Denies any history of cancer. Chest x-ray done arrival shows a suspicious right perihilar masslike opacity and volume loss. CBC unremarkable without leukocytosis. CMP: Sodium 136, potassium 4.3, chloride 105, serum bicarb 23, BUN 19, creatinine 0.83, glucose 137. Normal saline infusing at 50 MLS per hour. LFTs are mildly elevated. AST 97, ALT 81, ALP 407. Total bilirubin 2.9. Troponin less than 0.012. Patient is currently resting comfortably on room air. He continues to have persistent cough, which is currently nonproductive. Afebrile. Vital signs are stable. Patient will be taken down for CT of the chest tonight. The patient is seen today September 30, 2023 in follow-up on the regular medical floor. He is currently resting in bed. Awake and alert in no acute distress. He did not denies any worsening shortness of breath, cough or congestion. He is maintaining good O2 saturations in room air. He remains on normal saline at 50 MLS per hour. Continued on a heparin drip. Plan is for bronchoscopy with biopsies today. Heparin will be discontinued at 10 AM. Ultrasound of the chest revealed a right sided pleural effusion with a 4.6 cm pocket. Ultrasound of the liver revealed findings suspicious for portal venous thrombosis. Heterogeneity could be related to underlying hepatocellular disease. CAT scan of the abdomen pelvis revealed portal vein thrombosis extending from the main portal vein into the left portal vein. The right portal vein remains patent. No involvement in the superior mesenteric vein. Minimal abdominal volume of abdominal and pelvic ascites. Right pleural effusion. White count 10.6. Hemoglobin 11.6. Platelets 283. Sodium 139. Potassium 3.9. Bicarb 22. BUN 12. Creatinine 0.8. Glucose 79. He is continued on DuoNeb inhalations, Symbicort, prednisone. Antibiotics in the form of Zosyn and Zithromax. The patient is seen today October 01, 2023 in follow-up on the regular medical floor. He is awake and alert in no acute distress. Resting comfortably in bed. Still with a loose nonproductive cough. Continue good O2 saturations in the mid 90s on 2 L/min per nasal cannula. He has normal saline at 50 MLS per hour. Continued on a heparin drip. He did undergo bronchoscopy with biopsies and BAL. Cultures and cytology pending. White count 15.2. Hemoglobin 11.6. Platelets 253. Sodium 139. Potassium 4.2. Bicarb 22. BUN 13. Creatinine 0.67. Glucose 103. He remains on DuoNeb inhalations, Symbicort, prednisone taper. Antibiotics in the form of azithromycin. Robitussin and Tessalon Perles for his cough. The patient is seen today October 02, 2023 in follow-up in the intensive care unit. Approximately 3:00 this morning the patient had been coughing excessively and requiring a 15 L nonrebreather mask to maintain O2 saturations in the 90s. Chest x-ray revealed right upper lobe addition with volume loss. Concern for obstructing mass or lesion. He is status post bronchoscopy with biopsies. He did develop extensive consolidation of the left upper and lower lobes. Possibly aspiration. He also developed atrial fibrillation with a rapid ventricular response. White count 18.4. Hemoglobin 12.5. Platelets 257. Sodium 135. Potassium 4.3. Bicarb 29. BUN 18. Creatinine 0.68. Glucose 167. Arterial blood gases on 75% FiO2 revealed a PaO2 of 69, pCO2 43 and a pH of 7.38. proBNP 1090. TSH 0.582. He has been initiated on Eliquis. He remains on bronchodilators, steroids, Tessalon Perles. He was given Lasix 80 mg IVP x 1. Remains on a Cardizem drip at 5 mg an hour. Today on 10/03/2023, remains in the ICU on 15 L high flow nasal cannula. Patient is off Cardizem drip, he is on anticoagulation therapy for portal vein thrombosis. Seems to be comfortable, not in distress. Awaiting the final pathology report from his bronchoscopy and endobronchial biopsy. In the meantime I would recommend an ultrasound of the chest, may consider right-sided thoracentesis if pathology comes back negative for malignancy. WBC count is 15.4 hemoglobin 12.6 basic metabolic profile is normal and renal profile is normal chest x-ray continues to show multifocal airspace opacities with a right pleural effusion and consolidation of the right midlung. Patient was today on 10/04/23, patient remains in the ICU, on high flow nasal cannula, on Cardizem drip, overall status is marginal at best. Chest x-ray c ontinues to show multiple abnormalities, unchanged. Pathology report from his lung biopsy is pending. Patient had ultrasound, showed small to moderate pleural effusion, could consider thoracentesis if no tissue diagnosis is made by bronchoscopy and endobronchial biopsy. WBC count is 15.0 hemoglobin 11.7 electrolytes are normal renal profile is normal liver enzymes are a bit elevated with elevated alkaline phosphatase of 421 AST of 104 and ALT of 105 Objective - Vital Signs Vital signs: Vital Signs Temp 97.8 F 10/04/23 12:00 Pulse 79 10/04/23 13:00 Resp 35 H 10/04/23 13:00 BP 92/52 10/04/23 13:00 Pulse Ox 94 L 10/04/23 13:00 FiO2 80 10/03/23 21:15 Intake & Output 10/03/23 10/04/23 10/04/23 18:59 06:59 18:59 Intake Total 125 600 538.75 Output Total 1060 357 255 Balance -935 243 283.75 Weight 73.1 kg 73.1 kg Intake: IV 125 120 70 0.9% NS Carrier 110 120 70 Diltiazem 125 mg In 15 Sodium Chloride 0.9% 100 ml @ 5 MG/HR 5 mls/hr IV .Q24H [facility] Rx#:[id number] Intake, IV Titration 68.75 Amount Diltiazem 125 mg In 68.75 Sodium Chloride 0.9% 100 ml @ Per Protocol IV .Q0M [facility] Rx#:[id number] Oral 480 400 Output: Urine 1060 357 255 Other: Voiding Method Indwelling Catheter Indwelling Catheter Indwelling Catheter # Voids 1 # Bowel Movements 1 - Exam GENERAL EXAM: Reveals 68-year-old white male in no distress on 15 L high flow nasal cannula HEAD: Normocephalic. EYES: Normal reaction of pupils, equal size. NOSE: Clear with pink turbinates. THROAT: No erythema or exudates. NECK: No masses, no JVD. CHEST: No chest wall deformity. LUNGS: Diminished breath sounds at the bases specially at the right base no rhonchi no wheezes CVS: S1 and S2 normal with no audible murmur, regular rhythm. ABDOMEN: No hepatosplenomegaly, normal bowel sounds, no guarding or rigidity. SKIN: No rashes CENTRAL NERVOUS SYSTEM: Alert oriented x 3 no gross focal neurologic deficits EXTREMITIES: No clubbing edema or cyanosis - Labs CBC & Chem 7: 10/04/23 05:14 10/04/23 05:41 Labs: Abnormal Lab Results - Last 24 Hours (Table) 10/03/23 10/03/23 10/04/23 Range/Units 16:22 21:36 05:14 WBC 15.0 H (3.8-10.6) k/uL RBC 4.02 L (4.30-5.90) m/uL Hgb 11.7 L (13.0-17.5) gm/dL Hct 36.4 L (39.0-53.0) % RDW 16.6 H (11.5-15.5) % Sodium (137-145) mmol/L Carbon Dioxide (22-30) mmol/L BUN (9-20) mg/dL Glucose (74-99) mg/dL POC Glucose (mg/dL) 204 H 264 H (70-110) mg/dL Total Bilirubin (0.2-1.3) mg/dL AST (17-59) U/L ALT (4-49) U/L Alkaline Phosphatase (38-126) U/L Total Protein (6.3-8.2) g/dL Albumin (3.5-5.0) g/dL 10/04/23 10/04/23 10/04/23 Range/Units 05:41 06:52 11:39 WBC (3.8-10.6) k/uL RBC (4.30-5.90) m/uL Hgb (13.0-17.5) gm/dL Hct (39.0-53.0) % RDW (11.5-15.5) % Sodium 134 L (137-145) mmol/L Carbon Dioxide 32 H (22-30) mmol/L BUN 40 H (9-20) mg/dL Glucose 194 H (74-99) mg/dL POC Glucose (mg/dL) 187 H 262 H (70-110) mg/dL Total Bilirubin 2.2 H (0.2-1.3) mg/dL AST 104 H (17-59) U/L ALT 105 H (4-49) U/L Alkaline Phosphatase 421 H (38-126) U/L Total Protein 5.5 L (6.3-8.2) g/dL Albumin 2.8 L (3.5-5.0) g/dL Assessment and Plan Assessment: Impression: Acute hypoxemic respiratory failure secondary to right upper lobe consolidation and new extensive pulmonary vascular congestion versus aspiration pneumonia Atrial fibrillation with a rapid ventricular response, transition to Eliquis Right perihilar masslike consolidation, right pleural effusion measuring less than 5 cm. Bronchoscopy with biopsies on September 30, 2023. Cultures and cytology pending Unintentional 20 pound weight loss, over 2-month timeframe Chronic obstructive pulmonary disease Former tobacco dependence, quitting approximately 1 month ago, with [id number] history Elevated liver enzymes ultrasound of liver reveals findings suspicious for portal venous thrombosis. Hypertension History of hyperlipidemia Diabetes mellitus type 2 Peripheral vein thrombosis Diffusion Recommendation: Continue present supportive care measures Awaiting final pathology to become available from his last bronchoscopy and endobronchial biopsies Further thoracentesis if no tissue diagnosis is made from bronchoscopy/endobronchial biopsy Continue anticoagulation therapy patient is on Eliquis Continue bronchodilators and steroids for underlying COPD Echocardiogram report is unremarkable except for severe pulmonary hypertension n ormal LV function Based on the pathology report from his endobronchial biopsies further recommendations will follow Will continue to follow closely. Time with Patient: Less than 30
[2023-10-04 17:00] LABS: Glucose,Whole Blood 391 mg/dL (70-110)
--- NOTE | 2023-10-04 18:06 | P.PN ---
Subjective Progress Note Date: 10/04/23 68 year old M with PMH of NIDDM, HTN, HLD, COPD not on home O2 presented to the ED for progressively worsening exertional SOB associated with productive cough. Also 20 lbs weight loss over 6 weeks due to poor appetite. Attempted multiple rounds of antibiotics, steroids and inhalers without much relief. In the ED he underwent extensive evaluation. BP 105/59, HR 96, T 97.1F, RR 18, 96% on RA. CBC, Coag panel, CMP significant for RBC 4.25, Hg 12.4, Hct 37.9, PT 13.7, INR 1.3, Na 136, glu 137, T. Bili 2.9, AST 97, ALT 81, alk phos 407, alb 3.3. Troponin < 0.012. Procal 0.18. EKG showed sinus arrhythmia with RBBB. CXR right midlung consolidation. CT chest performed showed RUL consolidation with volume loss and interstitial edema in the right lung with moderate right pleural effusion. Patient was started on Azithromycin and admitted for Pulmonary evaluation. Liver US was ordered for transaminitis which showed possible clot in the MPV and LPV and GB wall thickening with pericholecystic fluid and gallstone. He was started on Zosyn and Heparin drip as well. Vascular surgery consulted, CTA AP completed confirming portal vein thrombosis MPV into the LPV, recommended no surgical intervention, Hematology consulted and heparin drip transitioned to Eliquis on 09/30. Surgery consulted for possible cholecystitis. CTA AP showed a contracted gall bladder. Given his lack of symptoms, Zosyn discontinued and patient advised no acute surgical intervention and outpatient follow up. He underwent bronchoscopy with BAL on 09/29 where biopsies and cultures were obtained. He failed his home O2 eval on 09/30. A-team called on 09/30 for hypoxia, required BiPAP, CXR showing worsening consolidation in the left lung, given Lasix 80 mg IV x 1, DuoNeb treatment, SoluMedrol 125 mg IV and transferred to ICU for closer monitoring. Also noted to be tachycardic with EKG showing A-Fib with RVR. Started on Cardizem drip and Cardiology consulted. BNP 1090. He was diuresed with Lasix IV and transitioned to Bumex PO, Echocardiogram showing EF 60-65%. 10/02 Patient was seen and examined. Elevated HR this morning and restarted on Cardizem drip at 10 mg/hr, Metoprolol increased by Cardiology. He is on 15L non rebreather. Lasix was discontinued yesterday and switched to Bumex PO. Echocardiogram showing preserved EF. CXR done today appears similar to yesterday with right midlung consolidation and extensive left lung consolidation. Chest US marked for possible R pleural effusion. CBC and CMP significant for WBC 15, RBC 4.02, Hg 11.7, Hct 36.4, Na 134, bicarb 32, BUN 40, glu 194, T. Bili 2.2, AST 104, ALT 105, alk phos 421, alb 2.8. Mag 1.7. He is currently in a negative fluid balance of 0.692L. Weight change 74.389-73.1kg. General: non toxic, moderate distress, appears at stated age Derm: warm, dry Head: atraumatic, normocephalic, symmetric Eyes: EOMI, no lid lag, anicteric sclera Mouth: no lip lesion, mucus membranes moist Cardiovascular: S1S2 irreg, no murmur Lungs: Coarse BS bilateral, no rhonchi, no rales , tachypneic Ext: no gross muscle atrophy, no edema, no contractures Neuro: no focal neuro deficits Psych: Alert, oriented, appropriate affect Based on my assessment of this patient, this patient meets a high complexity level of care. Acute hypoxic respiratory failure secondary to known RUL consolidation (mass versus post obstructive PNA) with new extensive left sided consolidation: Pro- ryan negative less concerning for infection. BNP marginally elevated at 1090. Chest US with possible R pleural effusion. Echo showing EF 60-6%, Lasix switched to Bumex 1 mg PO QD. Completed a course of Azithromycin. COPD treatment as below. Attempt to wean O2. Pulmonary on board. Diabetes mellitus with hyperglycemia: POC glucose ranging from 187-396 over the past 24H. Worsened with steroids. A1c is 6.2. Continue ISS, Accuchecks ACHS and hypoglycemic precautions. Novolog increased to 7 units TID. Atrial fibrillation with RVR: Cardizem drip at 10 mg/hr. Metoprolol increased to 75 mg PO BID. AC with Eliquis 5 mg PO BID. TSH wnl. Echocardiogram as above. Maintain K > 4 and Mg > 2. Cardiology on board. Right perihilar mass like consolidation: Status post bronchoscopy. BAL Cultures negative. Pathology negative for malignancy. Suspicious for malignancy given weight loss and history of heavy smoking. He has also failed multiple rounds of PO antibiotics. Procal 0.18-0.23. Completed 3 days of Azithromycin. Prerenal azotemia likely related to forced diuresis Transaminitis: Obstructive likely related to below. Portal vein thrombosis seen on Liver US: Vascular Surgery recommends no surgical intervention. Eliquis 5 mg PO BID. Follow up with Hematology in the outpatient setting. Possible cholecystitis seen on Liver US: CT shows no findings of cholecystitis. No antibiotics at this time. Surgery recommends outpatient follow up. Acute on chronic COPD exacerbation: SoluMedrol 60 mg IV Q6H. DuoNeb scheduled and PRN for SOB/wheezing. Symbicort 1 INH BID. Normocytic anemia: No signs of bleeding. Trend. Supratherapeutic INR: Likely related to livery dysfunction. Hypertension: Amlodipine 5 mg PO QD. Lisinopril 40 mg PO QD. Metoprolol as above. BPH: Doxazosin 4 mg PO QD. Proscar 5 mg PO QD. CODE STATUS: FULL CODE DVT Prophylaxis: Eliquis GI Prophylaxis: Protonix PO Designated medical POA if patient is not able to make medical decisions for themselves: I have reviewed the following presales consultant notes: Pulmonary, Cardiology, Surgery note. I have reviewed the results of the following tests: CBC, CMP, Chest US, Echo I have ordered the following tests: CBC, CXR and BMP tomorrow. I have discussed the care of this patient with the following independent historian: I have independently interpreted the following test below: CXR. I have discussed the management of this patient with the following physician: Objective - Vital Signs Vital signs: Vital Signs Temp 97.0 F L 10/04/23 04:00 Pulse 75 10/04/23 07:43 Resp 17 10/04/23 07:00 BP 106/69 10/04/23 07:00 Pulse Ox 92 L 10/04/23 07:20 FiO2 80 10/03/23 21:15 Intake & Output 10/03/23 10/04/23 10/04/23 18:59 06:59 18:59 Intake Total 125 600 10 Output Total 1060 357 30 Balance -935 243 -20 Weight 73.1 kg Intake: IV 125 120 10 0.9% NS Carrier 110 120 10 Diltiazem 125 mg In 15 Sodium Chloride 0.9% 100 ml @ 5 MG/HR 5 mls/hr IV .Q24H [facility] Rx#:[id number] Oral 480 Output: Urine 1060 357 30 Other: Voiding Method Indwelling Catheter Indwelling Catheter # Voids 1 # Bowel Movements 1 - Labs CBC & Chem 7: 10/04/23 05:14 10/04/23 05:41 Labs: Abnormal Lab Results - Last 24 Hours (Table) 10/03/23 10/03/23 10/03/23 Range/Units 11:14 16:22 21:36 WBC (3.8-10.6) k/uL RBC (4.30-5.90) m/uL Hgb (13.0-17.5) gm/dL Hct (39.0-53.0) % RDW (11.5-15.5) % Sodium (137-145) mmol/L Carbon Dioxide (22-30) mmol/L BUN (9-20) mg/dL Glucose (74-99) mg/dL POC Glucose (mg/dL) 396 H 204 H 264 H (70-110) mg/dL Total Bilirubin (0.2-1.3) mg/dL AST (17-59) U/L ALT (4-49) U/L Alkaline Phosphatase (38-126) U/L Total Protein (6.3-8.2) g/dL Albumin (3.5-5.0) g/dL 10/04/23 10/04/23 10/04/23 Range/Units 05:14 05:41 06:52 WBC 15.0 H (3.8-10.6) k/uL RBC 4.02 L (4.30-5.90) m/uL Hgb 11.7 L (13.0-17.5) gm/dL Hct 36.4 L (39.0-53.0) % RDW 16.6 H (11.5-15.5) % Sodium 134 L (137-145) mmol/L Carbon Dioxide 32 H (22-30) mmol/L BUN 40 H (9-20) mg/dL Glucose 194 H (74-99) mg/dL POC Glucose (mg/dL) 187 H (70-110) mg/dL Total Bilirubin 2.2 H (0.2-1.3) mg/dL AST 104 H (17-59) U/L ALT 105 H (4-49) U/L Alkaline Phosphatase 421 H (38-126) U/L Total Protein 5.5 L (6.3-8.2) g/dL Albumin 2.8 L (3.5-5.0) g/dL Microbiology - Last 24 Hours (Table) 09/30/23 12:30 Gram Stain - Final Bronchoalviolar Lavage - Right Bronchial Washings Culture - Final
--- NOTE | 2023-10-04 19:12 | P.PN ---
Subjective Progress Note Date: 10/04/23 Principal diagnosis: Portal vein thrombosis, lung mass In f/u pt denies fevers, SOB, N,V, abd pain, bleeding. Objective - Vital Signs Vital signs: Vital Signs Temp 97.7 F 10/04/23 08:00 Pulse 87 10/04/23 09:00 Resp 22 10/04/23 09:00 BP 118/71 10/04/23 09:00 Pulse Ox 92 L 10/04/23 09:00 FiO2 80 10/03/23 21:15 Intake & Output 10/03/23 10/04/23 10/04/23 18:59 06:59 18:59 Intake Total 125 600 30 Output Total 1060 357 130 Balance -935 243 -100 Weight 73.1 kg Intake: IV 125 120 30 0.9% NS Carrier 110 120 30 Diltiazem 125 mg In 15 Sodium Chloride 0.9% 100 ml @ 5 MG/HR 5 mls/hr IV .Q24H [facility] Rx#:[id number] Oral 480 Output: Urine 1060 357 130 Other: Voiding Method Indwelling Catheter Indwelling Catheter # Voids 1 # Bowel Movements 1 - Constitutional General appearance: Present: cooperative, no acute distress, thin - EENT Eyes: Present: anicteric sclerae, EOMI ENT: Present: hearing grossly normal - Respiratory Details: 10L, resp unlabored at rest - Cardiovascular Rhythm: regular - Peripheral edema leg Peripheral Edema: bilateral: None - Gastrointestinal General gastrointestinal: Present: normal bowel sounds, soft. Absent: absent bowel sounds, decreased bowel sounds, distended, hepatomegaly, hyperactive bowel sounds, organomegaly, rigid, scaphoid, splenomegaly, tenderness, umbilical her ricky, ventral hernia - Neurologic Neurologic: Present: CNII-XII intact - Musculoskeletal Musculoskeletal: Present: strength equal bilaterally - Psychiatric Psychiatric: Present: A&O x's 3, appropriate affect, intact judgment & insight - Labs CBC & Chem 7: 10/04/23 05:14 10/04/23 05:41 Labs: Abnormal Lab Results - Last 24 Hours (Table) 10/03/23 10/03/23 10/03/23 Range/Units 11:14 16:22 21:36 WBC (3.8-10.6) k/uL RBC (4.30-5.90) m/uL Hgb (13.0-17.5) gm/dL Hct (39.0-53.0) % RDW (11.5-15.5) % Sodium (137-145) mmol/L Carbon Dioxide (22-30) mmol/L BUN (9-20) mg/dL Glucose (74-99) mg/dL POC Glucose (mg/dL) 396 H 204 H 264 H (70-110) mg/dL Total Bilirubin (0.2-1.3) mg/dL AST (17-59) U/L ALT (4-49) U/L Alkaline Phosphatase (38-126) U/L Total Protein (6.3-8.2) g/dL Albumin (3.5-5.0) g/dL 10/04/23 10/04/23 10/04/23 Range/Units 05:14 05:41 06:52 WBC 15.0 H (3.8-10.6) k/uL RBC 4.02 L (4.30-5.90) m/uL Hgb 11.7 L (13.0-17.5) gm/dL Hct 36.4 L (39.0-53.0) % RDW 16.6 H (11.5-15.5) % Sodium 134 L (137-145) mmol/L Carbon Dioxide 32 H (22-30) mmol/L BUN 40 H (9-20) mg/dL Glucose 194 H (74-99) mg/dL POC Glucose (mg/dL) 187 H (70-110) mg/dL Total Bilirubin 2.2 H (0.2-1.3) mg/dL AST 104 H (17-59) U/L ALT 105 H (4-49) U/L Alkaline Phosphatase 421 H (38-126) U/L Total Protein 5.5 L (6.3-8.2) g/dL Albumin 2.8 L (3.5-5.0) g/dL Microbiology - Last 24 Hours (Table) 09/30/23 12:30 Gram Stain - Final Bronchoalviolar Lavage - Right Bronchial Washings Culture - Final - Imaging and Cardiology Chest x-ray: report reviewed Assessment and Plan (1) Lung consolidation Current Visit: Yes Status: Acute Priority: High Code(s): J18.1 - LOBAR PNEUMONIA, UNSPECIFIED ORGANISM SNOMED Code(s): 79987694 (2) Portal vein thrombosis Current Visit: Yes Status: Acute Priority: High Code(s): I81 - PORTAL VEIN THROMBOSIS SNOMED Code(s): 36973144 Plan: Lung consolidation -Symptomatic on admit, shortness of breath and cough x 2 months. 20 pound weight loss in 8 weeks. Concerns for malignancy on CT of the chest with contrast, right upper lobe consolidation with volume loss and interstitial edema, moderate right pleural effusion. -S/P bronchoscopy with BAL and brushings. Brushings and lavage are not nondiagnostic. Still pending transbronchial biopsy results. These results were reviewed with the patient. He understands still pending results. Portal vein thrombosis -CT AP showing portal vein thrombosis extending from the main portal vein into the left portal vein. -He continues on a heparin drip at this time for atrial fibrillation -Surgery following patient. No surgical intervention for gallstones with cholecystitis planned at this time. -Vascular has seen the patient. CT angiogram of the abdomen and pelvis done. Right portal vein remains patent. No involvement of the superior mesenteric vein. We are consulted for anticoagulation recommendations. Per Vascular, no surgical intervention is indicated at this time. -Jak2 V617f and Jak2 exon 12-15, was ordered to r/o MPN, pending results. Possible hypercoaguable workup in outpt setting -Patient will need to be on anticoagulation for at least 6 months, but if pathology is positive for malignancy, anticoagulation would need to be continued until cancer is adequately treated. Final AC recommendations once work up is complete -Eliquis Rx has been sent to [facility]. Pending copay verification attests:I have seen and examined pt, performed H&P, developed impression and plan of care. Discussed with dictator. Agree with documentation, dictated as a scribe.
[2023-10-04 20:05] LABS: Glucose,Whole Blood 361 mg/dL (70-110)
[2023-10-04] MEDS: METOPROLOL TARTRATE 25 MG TAB PO SCH (20:55)
[2023-10-05 06:02] LABS: Anisocytosis Slight; HCT 42.7 % (39.0-53.0); HGB 13.5 gm/dL (13.0-17.5); Hypochromasia Slight; MCH 28.3 pg (25.0-35.0); MCHC 31.6 g/dL (31.0-37.0); MCV 89.6 fL (80.0-100.0); Mean Platelet Volume 8.9; Platelet Count 297 k/uL (150-450); RBC 4.77 m/uL (4.30-5.90); WBC 16.2 k/uL (3.8-10.6)
[2023-10-05 06:06] LABS: Glucose,Whole Blood 190 mg/dL (70-110)
[2023-10-05] MEDS: traMADol 50 MG TAB PO PRN (06:17)
[2023-10-05 06:23] LABS: ALT 140 U/L (4-49); AST 142 U/L (17-59); African American GFR (CKD) >90 (>60 ml/min/1.73 sqM); Albumin 3.1 g/dL (3.5-5.0); Alkaline Phosphatase 497 U/L (38-126); Anion Gap 7 mmol/L; Blood Urea Nitrogen 45 mg/dL (9-20); Calcium 8.9 mg/dL (8.4-10.2); Carbon Dioxide 27 mmol/L (22-30); Chloride 100 mmol/L (98-107); Glucose 201 mg/dL (74-99); Magnesium 1.9 mg/dL (1.6-2.3); Non-African American GFR(CKD) >90 (>60 ml/min/1.73 sqM); Potassium 4.6 mmol/L (3.5-5.1); Sodium 134 mmol/L (137-145); Total Bilirubin 2.4 mg/dL (0.2-1.3)
--- NOTE | 2023-10-05 08:38 | XR ---
EXAMINATION TYPE: XR chest 1V portable DATE OF EXAM: 10/05/2023 5:51 AM CLINICAL INDICATION:Male, 68 years old with history of assess lungs; [facility] COMPARISON: Chest radiograph from one day prior. TECHNIQUE: XR chest 1V portable Frontal view of the chest. FINDINGS: Lungs/Pleura: Improved aeration of the left lung compared to prior with no evidence for pneumothorax. Blunting of the right costophrenic angle. Pulmonary vascularity: Unremarkable. Heart/mediastinum: Cardiomediastinal silhouette is unremarkable. Musculoskeletal: No acute osseous pathology. IMPRESSION: Improved aeration of the left lung compared to prior.
--- NOTE | 2023-10-05 10:56 | P.PN ---
Subjective Progress Note Date: 10/05/23 68 year old M with PMH of NIDDM, HTN, HLD, COPD not on home O2 presented to the ED for progressively worsening exertional SOB associated with productive cough. Also 20 lbs weight loss over 6 weeks due to poor appetite. Attempted multiple rounds of antibiotics, steroids and inhalers without much relief. In the ED he underwent extensive evaluation. BP 105/59, HR 96, T 97.1F, RR 18, 96% on RA. CBC, Coag panel, CMP significant for RBC 4.25, Hg 12.4, Hct 37.9, PT 13.7, INR 1.3, Na 136, glu 137, T. Bili 2.9, AST 97, ALT 81, alk phos 407, alb 3.3. Troponin < 0.012. Procal 0.18. EKG showed sinus arrhythmia with RBBB. CXR right midlung consolidation. CT chest performed showed RUL consolidation with volume loss and interstitial edema in the right lung with moderate right pleural effusion. Patient was started on Azithromycin and admitted for Pulmonary evaluation. Liver US was ordered for transaminitis which showed possible clot in the MPV and LPV and GB wall thickening with pericholecystic fluid and gallstone. He was started on Zosyn and Heparin drip as well. Vascular surgery consulted, CTA AP completed confirming portal vein thrombosis MPV into the LPV, recommended no surgical intervention, Hematology consulted and heparin drip transitioned to Eliquis on 09/30. Surgery consulted for possible cholecystitis. CTA AP showed a contracted gallbladder. Given his lack of symptoms, Zosyn discontinued and patient advised no acute surgical intervention and outpatient follow up. He underwent bronchoscopy with BAL on 09/29 where biopsies and cultures were obtained. He failed his home O2 eval on 09/30. A-team called on 09/30 for hypoxia, required BiPAP, CXR showing worsening consolidation in the left lung, given Lasix 80 mg IV x 1, DuoNeb treatment, SoluMedrol 125 mg IV and transferred to ICU for closer monitoring. Also noted to be tachycardic with EKG showing A-Fib with RVR. Started on Cardizem drip and Cardiology consulted. BNP 1090. He was diuresed with Lasix IV (09/30-10/02) and transitioned to Bumex PO, Echocardiogram showing EF 60-65%. 10/02 Patient was seen and examined. Sitter at bedside. Patient getting agitated. Currently on Cardizem drip at 5 mg/hr with HR in the 120s. He is on 15L HFNC. Diuretics include Bumex 1 mg PO QD. CXR done today shows improved left lung consolidation. Possible thoracentesis today by Pulmonary as his pathology results are negative. CBC and CMP significant for WBC 16.2, RDW 17, Na 134, BUN 45, Cr 0.57, glu 201, T. Bili 2.4, AST 142, ALT 140, alk phos 497, alb 3.1. Mag 1.9. General: non toxic, mild distress, appears at stated age Derm: warm, dry Head: atraumatic, normocephalic, symmetric Eyes: EOMI, no lid lag, anicteric sclera Mouth: no lip lesion, mucus membranes moist Cardiovascular: S1S2 irreg, no murmur Lungs: Coarse BS bilateral, no rhonchi, no rales , tachypneic Ext: no gross muscle atrophy, no edema, no contractures Neuro: no focal neuro deficits Psych: Appears defeated Based on my assessment of this patient, this patient meets a high complexity level of care. Acute hypoxic respiratory failure secondary to known RUL consolidation (mass versus post obstructive PNA) with new extensive left sided consolidation: Pro- ryan negative less concerning for infection. BNP marginally elevated at 1090. Chest US with possible R pleural effusion. Echo showing EF 60-65%, currently on Bumex 1 mg PO QD. Completed a 3 day course of Azithromycin. COPD treatment as below. Plans for possible thoracentesis by Pulmonary. Attempt to wean O2. Pulmon kofi on board. Diabetes mellitus with hyperglycemia: POC glucose ranging from 187-391 over the past 24H. Worsened with steroids. A1c is 6.2. Continue ISS, Accuchecks ACHS and hypoglycemic precautions. Novolog 7 units TID. Add Levemir 20 units QHS. Atrial fibrillation with RVR: Cardizem drip at 5 mg/hr. Metoprolol 75 mg PO BID. AC with Eliquis 5 mg PO BID. TSH wnl. Echocardiogram as above. Maintain K > 4 and Mg > 2. Cardiology on board. Right perihilar mass like consolidation: Status post bronchoscopy. BAL Cultures negative. Pathology negative for malignancy. Suspicious for malignancy given w eight loss and history of heavy smoking. He has also failed multiple rounds of PO antibiotics. Procal 0.18-0.23. Completed 3 days of Azithromycin. Hospital induced delirium: Sitter if necessary. Avoid sedatives. Frequent re- direction. Prerenal azotemia likely related to forced diuresis Transaminitis: Obstructive likely related to below. Portal vein thrombosis seen on Liver US: Vascular Surgery recommends no surgical intervention. Eliquis 5 mg PO BID. Follow up with Hematology in the outpatient setting. Possible cholecystitis seen on Liver US: CT shows no findings of cholecystitis. No antibiotics at this time. Surgery recommends outpatient follow up. Acute on chronic COPD exacerbation: SoluMedrol 60 mg IV Q6H. DuoNeb scheduled and PRN for SOB/wheezing. Symbicort 1 INH BID. Normocytic anemia: No signs of bleeding. Trend. Supratherapeutic INR: Likely related to livery dysfunction. Hypertension: Amlodipine 5 mg PO QD. Lisinopril 40 mg PO QD. Metoprolol as above. BPH: Doxazosin 4 mg PO QD. Proscar 5 mg PO QD. CODE STATUS: FULL CODE DVT Prophylaxis: Eliquis GI Prophylaxis: Protonix PO Designated medical POA if patient is not able to make medical decisions for themselves: I have reviewed the following sap portal consultant notes: Pulmonary, Cardiology, Surgery note. I have reviewed the results of the following tests: CBC, CMP, Mag. I have ordered the following tests: CBC, CXR and BMP tomorrow. I have discussed the care of this patient with the following independent historian: Brenda. I have independently interpreted the following test below: CXR. I have discussed the management of this patient with the following physician: Meredith MORENO Objective - Vital Signs Vital signs: Vital Signs Temp 97.7 F 10/05/23 07:00 Pulse 122 H 10/05/23 07:00 Resp 18 10/05/23 07:00 BP 101/72 10/05/23 07:00 Pulse Ox 92 L 10/05/23 07:00 FiO2 80 10/04/23 20:00 Intake & Output 10/04/23 10/05/23 10/05/23 18:59 06:59 18:59 Intake Total 598.75 260 10 Output Total 1055 995 50 Balance -456.25 -735 -40 Weight 73.1 kg 78.7 kg Intake: IV 130 110 10 0.9% NS Carrier 130 110 10 Intake, IV Titration 68.75 Amount Diltiazem 125 mg In 68.75 Sodium Chloride 0.9% 100 ml @ Per Protocol IV .Q0M [facility] Rx#:[id number] Oral 400 150 Output: Urine 1055 995 50 Other: Voiding Method Indwelling Catheter Indwelling Catheter # Bowel Movements 0 - Labs CBC & Chem 7: 10/05/23 05:36 10/05/23 05:31 Labs: Abnormal Lab Results - Last 24 Hours (Table) 10/04/23 10/04/23 10/04/23 Range/Units 05:14 11:39 16:57 WBC 15.0 H (3.8-10.6) k/uL RBC 4.02 L (4.30-5.90) m/uL Hgb 11.7 L (13.0-17.5) gm/dL Hct 36.4 L (39.0-53.0) % RDW 16.6 H (11.5-15.5) % Sodium (137-145) mmol/L BUN (9-20) mg/dL Creatinine (0.66-1.25) mg/dL Glucose (74-99) mg/dL POC Glucose (mg/dL) 262 H 391 H (70-110) mg/dL Total Bilirubin (0.2-1.3) mg/dL AST (17-59) U/L ALT (4-49) U/L Alkaline Phosphatase (38-126) U/L Total Protein (6.3-8.2) g/dL Albumin (3.5-5.0) g/dL 10/04/23 10/05/23 10/05/23 Range/Units 20:03 05:31 05:36 WBC 16.2 H (3.8-10.6) k/uL RBC (4.30-5.90) m/uL Hgb (13.0-17.5) gm/dL Hct (39.0-53.0) % RDW 17.0 H (11.5-15.5) % Sodium 134 L (137-145) mmol/L BUN 45 H (9-20) mg/dL Creatinine 0.57 L (0.66-1.25) mg/dL Glucose 201 H (74-99) mg/dL POC Glucose (mg/dL) 361 H (70-110) mg/dL Total Bilirubin 2.4 H (0.2-1.3) mg/dL AST 142 H (17-59) U/L ALT 140 H (4-49) U/L Alkaline Phosphatase 497 H (38-126) U/L Total Protein 6.0 L (6.3-8.2) g/dL Albumin 3.1 L (3.5-5.0) g/dL 10/05/23 Range/Units 06:04 WBC (3.8-10.6) k/uL RBC (4.30-5.90) m/uL Hgb (13.0-17.5) gm/dL Hct (39.0-53.0) % RDW (11.5-15.5) % Sodium (137-145) mmol/L BUN (9-20) mg/dL Creatinine (0.66-1.25) mg/dL Glucose (74-99) mg/dL POC Glucose (mg/dL) 190 H (70-110) mg/dL Total Bilirubin (0.2-1.3) mg/dL AST (17-59) U/L ALT (4-49) U/L Alkaline Phosphatase (38-126) U/L Total Protein (6.3-8.2) g/dL Albumin (3.5-5.0) g/dL
[2023-10-05 11:16] LABS: Glucose,Whole Blood 323 mg/dL (70-110)
--- NOTE | 2023-10-05 12:18 | P.PN ---
Subjective Progress Note Date: 10/05/23 Principal diagnosis: Acute hypoxic respiratory failure secondary to right upper lobe consolidation, possible right lung mass/lung cancer Patient is a 68-year-old white male with past medical history significant for hypertension, hyperlipidemia, diabetes, chronic obstructive pulmonary disease, former tobacco dependence. Primary care provider is Dr. Castelan. Patient's chief complaint is a persistent cough for the last 2 months. He has been seen by multiple urgent care clinics, treated with courses of antibiotics and steroids without any significant improvement in his symptoms. He did go to his primary care provider yesterday, who directed him to the emergency department. He is complaining of a persistent cough over the last 2 months. Previously productive with yellow sputum, now non-productive. No hemoptysis. The cough has interfered with his sleeping. He is also been short of breath with minimal exertion. His rescue inhaler has not been providing much relief. He has been generally weak. Denies fevers. Denies sick contacts. He does have history of COPD. He has history of heavy tobacco dependence, quitting approximately 1 month ago. Reports [id number] smoking history. He has had also poor appetite. Endorses 20 pound weight loss over 2-month timeframe. Denies any history of cancer. Chest x-ray done arrival shows a suspicious right perihilar masslike opacity and volume loss. CBC unremarkable without leukocytosis. CMP: Sodium 136, potassium 4.3, chloride 105, serum bicarb 23, BUN 19, creatinine 0.83, glucose 137. Normal saline infusing at 50 MLS per hour. LFTs are mildly elevated. AST 97, ALT 81, ALP 407. Total bilirubin 2.9. Troponin less than 0.012. Patient is currently resting comfortably on room air. He continues to have persistent cough, which is currently nonproductive. Afebrile. Vital signs are stable. Patient will be taken down for CT of the chest tonight. The patient is seen today September 30, 2023 in follow-up on the regular medical floor. He is currently resting in bed. Awake and alert in no acute distress. He did not denies any worsening shortness of breath, cough or congestion. He is maintaining good O2 saturations in room air. He remains on normal saline at 50 MLS per hour. Continued on a heparin drip. Plan is for bronchoscopy with biopsies today. Heparin will be discontinued at 10 AM. Ultrasound of the chest revealed a right sided pleural effusion with a 4.6 cm pocket. Ultrasound of the liver revealed findings suspicious for portal venous thrombosis. Heterogeneity could be related to underlying hepatocellular disease. CAT scan of the abdomen pelvis revealed portal vein thrombosis extending from the main portal vein into the left portal vein. The right portal vein remains patent. No involvement in the superior mesenteric vein. Minimal abdominal volume of abdominal and pelvic ascites. Right pleural effusion. White count 10.6. Hemoglobin 11.6. Platelets 283. Sodium 139. Potassium 3.9. Bicarb 22. BUN 12. Creatinine 0.8. Glucose 79. He is continued on DuoNeb inhalations, Symbicort, prednisone. Antibiotics in the form of Zosyn and Zithromax. The patient is seen today October 01, 2023 in follow-up on the regular medical floor. He is awake and alert in no acute distress. Resting comfortably in bed. Still with a loose nonproductive cough. Continue good O2 saturations in the mid 90s on 2 L/min per nasal cannula. He has normal saline at 50 MLS per hour. Continued on a heparin drip. He did undergo bronchoscopy with biopsies and BAL. Cultures and cytology pending. White count 15.2. Hemoglobin 11.6. Platelets 253. Sodium 139. Potassium 4.2. Bicarb 22. BUN 13. Creatinine 0.67. Glucose 103. He remains on DuoNeb inhalations, Symbicort, prednisone taper. Antibiotics in the form of azithromycin. Robitussin and Tessalon Perles for his cough. The patient is seen today October 02, 2023 in follow-up in the intensive care unit. Approximately 3:00 this morning the patient had been coughing excessively and requiring a 15 L nonrebreather mask to maintain O2 saturations in the 90s. Chest x-ray revealed right upper lobe addition with volume loss. Concern for obstructing mass or lesion. He is status post bronchoscopy with biopsies. He did develop extensive consolidation of the left upper and lower lobes. Possibly aspiration. He also developed atrial fibrillation with a rapid ventricular response. White count 18.4. Hemoglobin 12.5. Platelets 257. Sodium 135. Potassium 4.3. Bicarb 29. BUN 18. Creatinine 0.68. Glucose 167. Arterial blood gases on 75% FiO2 revealed a PaO2 of 69, pCO2 43 and a pH of 7.38. proBNP 1090. TSH 0.582. He has been initiated on Eliquis. He remains on bronchodilators, steroids, Tessalon Perles. He was given Lasix 80 mg IVP x 1. Remains on a Cardizem drip at 5 mg an hour. Today on 10/03/2023, remains in the ICU on 15 L high flow nasal cannula. Patient is off Cardizem drip, he is on anticoagulation therapy for portal vein thrombosis. Seems to be comfortable, not in distress. Awaiting the final pathology report from his bronchoscopy and endobronchial biopsy. In the meantime I would recommend an ultrasound of the chest, may consider right-sided thoracentesis if pathology comes back negative for malignancy. WBC count is 15.4 hemoglobin 12.6 basic metabolic profile is normal and renal profile is normal chest x-ray continues to show multifocal airspace opacities with a right pleural effusion and consolidation of the right midlung. Patient was today on 10/04/23, patient remains in the ICU, on high flow nasal cannula, on Cardizem drip, overall status is marginal at best. Chest x-ray c ontinues to show multiple abnormalities, unchanged. Pathology report from his lung biopsy is pending. Patient had ultrasound, showed small to moderate pleural effusion, could consider thoracentesis if no tissue diagnosis is made by bronchoscopy and endobronchial biopsy. WBC count is 15.0 hemoglobin 11.7 electrolytes are normal renal profile is normal liver enzymes are a bit elevated with elevated alkaline phosphatase of 421 AST of 104 and ALT of 105 Reevaluated today on 01/05/24, patient remains in the ICU, remains on high flow nasal cannula, 15 L/min, and intermittently on BiPAP 10/5/80%. Not much of a change has been noted on this patient, overall prognosis remains poor and guarded, pathology from his bronchial biopsy is pending, may have to consider addressing CODE STATUS after a tissue diagnosis is made. Meantime the patient remains full code. And he is marginal at best. Chest x-ray is basically unchanged, continues to show significant abnormalities on the chest as noted woody beauchamp. Patient has multifocal opacities and is airspace disease with right- sided pleural effusion with consolidation in the right midlung WBC count is 16.2 hemoglobin 13.5 electrolytes are normal BUN is 45 creatinine 0.57 liver enzymes are significantly elevated with elevated alkaline phosphatase. Objective - Vital Signs Vital signs: Vital Signs Temp 97.7 F 10/05/23 07:00 Pulse 78 10/05/23 11:00 Resp 18 10/05/23 11:00 BP 95/75 10/05/23 11:00 Pulse Ox 96 10/05/23 11:00 FiO2 80 10/04/23 20:00 Intake & Output 10/04/23 10/05/23 10/05/23 18:59 06:59 18:59 Intake Total 598.75 260 399.667 Output Total 1055 995 410 Balance -456.25 -735 -10.333 Weight 73.1 kg 78.7 kg Intake: IV 130 110 50 0.9% NS Carrier 130 110 50 Intake, IV Titration 68.75 109.667 Amount Diltiazem 125 mg In 68.75 109.667 Sodium Chloride 0.9% 100 ml @ Per Protocol IV .Q0M [facility] Rx#:[id number] Oral 400 150 240 Output: Urine 1055 995 410 Other: Voiding Method Indwelling Catheter Indwelling Catheter Indwelling Catheter # Bowel Movements 0 - Exam GENERAL EXAM: Reveals 68-year-old white male in no distress on 15 L high flow nasal cannula HEAD: Normocephalic. EYES: Normal reaction of pupils, equal size. NOSE: Clear with pink turbinates. THROAT: No erythema or exudates. NECK: No masses, no JVD. CHEST: No chest wall deformity. LUNGS: Diminished breath sounds at the bases specially at the right base no rhonchi no wheezes CVS: S1 and S2 normal with no audible murmur, regular rhythm. ABDOMEN: No hepatosplenomegaly, normal bowel sounds, no guarding or rigidity. SKIN: No rashes CENTRAL NERVOUS SYSTEM: Alert oriented x 3 no gross focal neurologic deficits EXTREMITIES: No clubbing edema or cyanosis - Labs CBC & Chem 7: 10/05/23 05:36 10/05/23 05:31 Labs: Abnormal Lab Results - Last 24 Hours (Table) 10/04/23 10/04/23 10/05/23 Range/Units 16:57 20:03 05:31 WBC (3.8-10.6) k/uL RDW (11.5-15.5) % Sodium 134 L (137-145) mmol/L BUN 45 H (9-20) mg/dL Creatinine 0.57 L (0.66-1.25) mg/dL Glucose 201 H (74-99) mg/dL POC Glucose (mg/dL) 391 H 361 H (70-110) mg/dL Total Bilirubin 2.4 H (0.2-1.3) mg/dL AST 142 H (17-59) U/L ALT 140 H (4-49) U/L Alkaline Phosphatase 497 H (38-126) U/L Total Protein 6.0 L (6.3-8.2) g/dL Albumin 3.1 L (3.5-5.0) g/dL 10/05/23 10/05/23 10/05/23 Range/Units 05:36 06:04 11:13 WBC 16.2 H (3.8-10.6) k/uL RDW 17.0 H (11.5-15.5) % Sodium (137-145) mmol/L BUN (9-20) mg/dL Creatinine (0.66-1.25) mg/dL Glucose (74-99) mg/dL POC Glucose (mg/dL) 190 H 323 H (70-110) mg/dL Total Bilirubin (0.2-1.3) mg/dL AST (17-59) U/L ALT (4-49) U/L Alkaline Phosphatase (38-126) U/L Total Protein (6.3-8.2) g/dL Albumin (3.5-5.0) g/dL Assessment and Plan Assessment: Impression: Acute hypoxemic respiratory failure secondary to right upper lobe consolidation and new extensive pulmonary vascular congestion versus aspiration pneumonia Atrial fibrillation with a rapid ventricular response, transition to Eliquis Right perihilar masslike consolidation, right pleural effusion measuring less than 5 cm. Bronchoscopy with biopsies on September 30, 2023. Cultures and cytology pending Unintentional 20 pound weight loss, over 2-month timeframe Chronic obstructive pulmonary disease Former tobacco dependence, quitting approximately 1 month ago, with [id number] history Elevated liver enzymes ultrasound of liver reveals findings suspicious for portal venous thrombosis. Hypertension History of hyperlipidemia Diabetes mellitus type 2 Peripheral vein thrombosis Diffusion Recommendation: Continue to monitor in the ICU and titrate oxygen accordingly remains on high flow nasal cannula Continue present supportive care measures Awaiting final pathology to become available from his last bronchoscopy and endobronchial biopsies Could consider thoracentesis of no tissue diagnosis made by biopsy Continue anticoagulation therapy patient is on Eliquis Continue bronchodilators and steroids for underlying COPD Echocardiogram report is unremarkable except for severe pulmonary hypertension normal LV function Based on the pathology report from his endobronchial biopsies further rec ommendations will follow Will continue to follow closely. Time with Patient: Less than 30
--- NOTE | 2023-10-05 12:56 | P.PN ---
Subjective Progress Note Date: 10/05/23 CHIEF COMPLAINT: Cholecystitis HISTORY OF PRESENT ILLNESS: Patient in the ICU for hypoxia and atrial fibr illation. Patient is on 9 L of oxygen. Patient denies any abdominal pain. Denies any nausea or vomiting. Eating a small amount of food. Afebrile. PHYSICAL EXAM: VITAL SIGNS: Reviewed. GENERAL: no acute distress. ABDOMEN: Soft. Nondistended. Nontender NEUROLOGIC: Alert and oriented. Cranial nerves II through XII grossly intact. ASSESSMENT: 1. Gallstones with cholecystitis 2. Portal vein thrombosis 3. Chronic cough 4. Leukocytosis 5. Acute hypoxia 6. Atrial fibrillation rapid ventricular response 7. Right perihilar masslike consolidation status post bronchoscopy PLAN: -No surgical intervention planned at this time -Patient has multiple comorbidities -Continue supportive care Physician Fire Watcher note has been reviewed by physician. Signing provider agrees with the documented findings, assessment, and plan of care. Objective - Vital Signs Vital signs: Vital Signs Temp 97.7 F 10/05/23 07:00 Pulse 114 H 10/05/23 12:42 Resp 21 10/05/23 12:42 BP 95/75 10/05/23 11:00 Pulse Ox 96 10/05/23 11:00 FiO2 80 10/04/23 20:00 Intake & Output 10/04/23 10/05/23 10/05/23 18:59 06:59 18:59 Intake Total 598.75 260 399.667 Output Total 1055 995 410 Balance -456.25 -735 -10.333 Weight 73.1 kg 78.7 kg Intake: IV 130 110 50 0.9% NS Carrier 130 110 50 Intake, IV Titration 68.75 109.667 Amount Diltiazem 125 mg In 68.75 109.667 Sodium Chloride 0.9% 100 ml @ Per Protocol IV .Q0M [facility] Rx#:[id number] Oral 400 150 240 Output: Urine 1055 995 410 Other: Voiding Method Indwelling Catheter Indwelling Catheter Indwelling Catheter # Bowel Movements 0 - Labs CBC & Chem 7: 10/05/23 05:36 10/05/23 05:31 Labs: Abnormal Lab Results - Last 24 Hours (Table) 10/04/23 10/04/23 10/05/23 Range/Units 16:57 20:03 05:31 WBC (3.8-10.6) k/uL RDW (11.5-15.5) % Sodium 134 L (137-145) mmol/L BUN 45 H (9-20) mg/dL Creatinine 0.57 L (0.66-1.25) mg/dL Glucose 201 H (74-99) mg/dL POC Glucose (mg/dL) 391 H 361 H (70-110) mg/dL Total Bilirubin 2.4 H (0.2-1.3) mg/dL AST 142 H (17-59) U/L ALT 140 H (4-49) U/L Alkaline Phosphatase 497 H (38-126) U/L Total Protein 6.0 L (6.3-8.2) g/dL Albumin 3.1 L (3.5-5.0) g/dL 10/05/23 10/05/23 10/05/23 Range/Units 05:36 06:04 11:13 WBC 16.2 H (3.8-10.6) k/uL RDW 17.0 H (11.5-15.5) % Sodium (137-145) mmol/L BUN (9-20) mg/dL Creatinine (0.66-1.25) mg/dL Glucose (74-99) mg/dL POC Glucose (mg/dL) 190 H 323 H (70-110) mg/dL Total Bilirubin (0.2-1.3) mg/dL AST (17-59) U/L ALT (4-49) U/L Alkaline Phosphatase (38-126) U/L Total Protein (6.3-8.2) g/dL Albumin (3.5-5.0) g/dL
[2023-10-05 16:34] LABS: Glucose,Whole Blood 216 mg/dL (70-110)
--- NOTE | 2023-10-05 18:56 | P.PN ---
Subjective Progress Note Date: 10/05/23 This is a 70-year-old gentleman with a past medical history significant for diabetes and hypertension and dyslipidemia with no history of coronary artery disease or cardiac arrhythmia. The patient was admitted to the hospital few days ago with persistent cough and congestion was not getting better on out patient treatment and for that reason the patient was presented to the emergency department and subsequently he was admitted. He underwent further evaluation including an x-ray and that showed possible mass/consolidation. Subsequently the patient underwent a CT scan of the chest and that revealed the mass. He underwent bronchoscopy and biopsy but the results still pending at this point. Also the patient was found to have a portal vein thrombus. He is on oral anticoagulation using Eliquis. The patient was going to be discharged later on today but subsequently he was feeling worse with shortness of breath with exertion which has progressed on him associated with congestion as well. He was noted to be in atrial fibrillation with rapid ventricular response which is new to him. He was started on Cardizem IV. Repeated the chest x-ray after he went into respiratory failure revealed possible underlying pneumonia which has progressed significantly versus heart failure. His NT proBNP is not severely elevated. He was only on 2 L oxygen and supposed to go home and oxygen but currently he is on 10 L oxygen to maintain saturation above 90%. He is not experiencing any symptoms of chest pain or chest discomfort. Definitely he is congested on examination with a bilateral rhonchi. The physical examination otherwise is remarkable for stable vital signs with slight tachycardia and ir regular rhythm and no edema was noted in the lower extremities. The EKG showed atrial fibrillation with diffuse nonspecific ST and T wave abnormalities. Progress note October 03, 2023 Patient is doing well from cardiovascular standpoint. Patient converted out of atrial fibrillation and is maintained in sinus rhythm. Still requiring high flow nasal oxygen, still short of breath. October 05, 2023 BP 137/79, heart rate 100 bpm, continues to be in atrial fibrillation Labs showed WBC 16, hemoglobin 13, BUN 45, creatinine 0.5 Chest x-ray shows mild improved aeration in bilateral lung raman with per sistent right upper lobe mass. On exam has mildly elevated JVD, no significant swelling in bilateral lower extremity Assessment Acute hypoxic respiratory failure likely to be multifactorial and secondary to pneumonia and heart failure, moderate right-sided pleural effusion Atrial fibrillation with RVR which is a new diagnosis to the patient Right upper lobe mass Multiple comorbid conditions including diabetes and hypertension and dyslipidemia Plan Continue p.o. Bumex 1 mg daily, Aldactone 25 mg daily. Add Farxiga 10 mg daily increase metoprolol to 100 mg twice daily Continue Cardizem drip as needed Monitor potassium and magnesium levels. Keep potassium at 4 magnesium at 2 Monitor urine output, monitor electrolytes Objective - Vital Signs Vital signs: Vital Signs Temp 97.9 F 10/05/23 16:00 Pulse 121 H 10/05/23 17:00 Resp 12 10/05/23 17:00 BP 137/79 10/05/23 17:00 Pulse Ox 92 L 10/05/23 17:00 FiO2 6 10/05/23 14:15 Intake & Output 10/04/23 10/05/23 10/05/23 18:59 06:59 18:59 Intake Total 598.75 260 475.000 Output Total 8239 105 4214 Balance -456.25 -735 -915.000 Weight 73.1 kg 78.7 kg Intake: IV 130 110 110 0.9% NS Carrier 130 110 110 Intake, IV Titration 68.75 125.000 Amount Diltiazem 125 mg In 68.75 125.000 Sodium Chloride 0.9% 100 ml @ Per Protocol IV .Q0M [facility] Rx#:[id number] Oral 400 150 240 Output: Urine 0479 264 4152 Other: Voiding Method Indwelling Catheter Indwelling Catheter Indwelling Catheter # Bowel Movements 0 - Labs CBC & Chem 7: 10/05/23 05:36 10/05/23 05:31 Labs: Abnormal Lab Results - Last 24 Hours (Table) 10/04/23 10/05/23 10/05/23 Range/Units 20:03 05:31 05:36 WBC 16.2 H (3.8-10.6) k/uL RDW 17.0 H (11.5-15.5) % Sodium 134 L (137-145) mmol/L BUN 45 H (9-20) mg/dL Creatinine 0.57 L (0.66-1.25) mg/dL Glucose 201 H (74-99) mg/dL POC Glucose (mg/dL) 361 H (70-110) mg/dL Total Bilirubin 2.4 H (0.2-1.3) mg/dL AST 142 H (17-59) U/L ALT 140 H (4-49) U/L Alkaline Phosphatase 497 H (38-126) U/L Total Protein 6.0 L (6.3-8.2) g/dL Albumin 3.1 L (3.5-5.0) g/dL 10/05/23 10/05/23 10/05/23 Range/Units 06:04 11:13 16:30 WBC (3.8-10.6) k/uL RDW (11.5-15.5) % Sodium (137-145) mmol/L BUN (9-20) mg/dL Creatinine (0.66-1.25) mg/dL Glucose (74-99) mg/dL POC Glucose (mg/dL) 190 H 323 H 216 H (70-110) mg/dL Total Bilirubin (0.2-1.3) mg/dL AST (17-59) U/L ALT (4-49) U/L Alkaline Phosphatase (38-126) U/L Total Protein (6.3-8.2) g/dL Albumin (3.5-5.0) g/dL
[2023-10-05 20:06] LABS: Glucose,Whole Blood 129 mg/dL (70-110)
[2023-10-05] MEDS: METOPROLOL TARTRATE 50 MG TAB PO SCH (20:07)
[2023-10-05] MEDS: INSULIN DETEMIR (LEVEMIR) 100 UNIT/ML SYR SQ SCH (20:10)
[2023-10-06 06:16] LABS: Glucose,Whole Blood 154 mg/dL (70-110)
[2023-10-06] MEDS ORDERED: INSULIN DETEMIR (LEVEMIR) 100 UNIT/ML SYR SQ SCH (07:00)
[2023-10-06 07:13] LABS: Anisocytosis Slight; Basophils % (A) 0 %; Eosinophils # (A) 0.1 k/uL (0-0.7); Eosinophils % (A) 0 %; HCT 42.9 % (39.0-53.0); HGB 13.3 gm/dL (13.0-17.5); Hypochromasia Moderate; Lymphocytes # (A) 0.3 k/uL (1.0-4.8); Lymphocytes % (A) 2 %; MCH 27.9 pg (25.0-35.0); MCHC 30.9 g/dL (31.0-37.0); MCV 90.4 fL (80.0-100.0); Mean Platelet Volume 8.5; Monocytes # (A) 0.7 k/uL (0-1.0); Monocytes % (A) 5 %; Neutrophils # (A) 13.4 k/uL (1.3-7.7); Neutrophils % (A) 92 %; Platelet Count 309 k/uL (150-450); RBC 4.75 m/uL (4.30-5.90); RDW 16.6 % (11.5-15.5); WBC 14.6 k/uL (3.8-10.6)
[2023-10-06 07:24] LABS: ALT 150 U/L (4-49); AST 131 U/L (17-59); African American GFR (CKD) >90 (>60 ml/min/1.73 sqM); Albumin 2.9 g/dL (3.5-5.0); Alkaline Phosphatase 509 U/L (38-126); Anion Gap 3 mmol/L; Blood Urea Nitrogen 43 mg/dL (9-20); Calcium 8.8 mg/dL (8.4-10.2); Carbon Dioxide 35 mmol/L (22-30); Chloride 99 mmol/L (98-107); Glucose 172 mg/dL (74-99); Non-African American GFR(CKD) >90 (>60 ml/min/1.73 sqM); Potassium 4.5 mmol/L (3.5-5.1); Sodium 137 mmol/L (137-145); Total Bilirubin 2.3 mg/dL (0.2-1.3); Total Protein 5.7 g/dL (6.3-8.2)
--- NOTE | 2023-10-06 08:25 | XR ---
EXAMINATION TYPE: XR chest 1V portable DATE OF EXAM: 10/06/2023 5:50 AM CLINICAL INDICATION:Male, 68 years old with history of follow up multifocal opacities; lung cancer; COMPARISON: Chest radiograph from one day prior. TECHNIQUE: XR chest 1V portable Frontal view of the chest. FINDINGS: Lungs/Pleura: Similar aeration of the left lung compared to prior with no evidence for pneumothorax. Blunting of the right costophrenic angle. Pulmonary vascularity: Unremarkable. Heart/mediastinum: Cardiomediastinal silhouette is unremarkable. Musculoskeletal: No acute osseous pathology. IMPRESSION: Similar aeration of the left lung compared to prior.
[2023-10-06 11:38] LABS: Glucose,Whole Blood 239 mg/dL (70-110)
[2023-10-06] MEDS: DILTIAZEM ORAL 30 MG TAB PO SCH (12:18)
--- NOTE | 2023-10-06 13:50 | P.PN ---
Subjective Progress Note Date: 10/06/23 CHIEF COMPLAINT: Cholecystitis HISTORY OF PRESENT ILLNESS: Patient in the ICU for hypoxia and atrial fibr illation. Patient denies any abdominal pain. Denies any nausea or vomiting. Eating a small amount of food. Afebrile. WBC is down from 16.2-14.6. Total bilirubin 2.3 AST 131 ALT 150 alk phos 509 PHYSICAL EXAM: VITAL SIGNS: Reviewed. GENERAL: no acute distress. ABDOMEN: Soft. Nondistended. Nontender NEUROLOGIC: Alert and oriented. Cranial nerves II through XII grossly intact. ASSESSMENT: 1. Gallstones with cholecystitis. No abdominal pain 2. Portal vein thrombosis 3. Chronic cough 4. Leukocytosis 5. Acute hypoxia 6. Atrial fibrillation rapid ventricular response 7. Right perihilar masslike consolidation status post bronchoscopy 8. Elevated LFTs possibly related to patient's portal vein thrombosis PLAN: -Surgical service will sign off. Please call with any questions or concerns. -Recommend GI consult if patient's liver enzymes continue to trend upwards -No surgical intervention planned at this time -Patient has multiple comorbidities -Continue supportive care Physician Basket Grader note has been reviewed by physician. Signing provider agrees with the documented findings, assessment, and plan of care. Objective - Vital Signs Vital signs: Vital Signs Temp 98.5 F 10/06/23 07:45 Pulse 122 H 10/06/23 12:57 Resp 21 10/06/23 11:30 BP 114/69 10/06/23 11:30 Pulse Ox 93 L 10/06/23 11:30 FiO2 6 10/05/23 14:15 Intake & Output 10/05/23 10/06/23 10/06/23 18:59 06:59 18:59 Intake Total 475.000 110 20 Output Total 1390 690 105 Balance -915.000 -580 -85 Weight 74.5 kg Intake: IV 110 110 20 0.9% NS Carrier 110 110 20 Intake, IV Titration 125.000 Amount Diltiazem 125 mg In 125.000 Sodium Chloride 0.9% 100 ml @ Per Protocol IV .Q0M [facility] Rx#:[id number] Oral 240 Output: Urine 1390 690 105 Other: Voiding Method Indwelling Catheter Indwelling Catheter Indwelling Catheter - Labs CBC & Chem 7: 10/06/23 06:37 10/06/23 06:37 Labs: Abnormal Lab Results - Last 24 Hours (Table) 07/31/24 07/31/24 08/01/24 Range/Units 16:30 20:04 06:15 WBC (3.8-10.6) k/uL MCHC (31.0-37.0) g/dL RDW (11.5-15.5) % Neutrophils # (1.3-7.7) k/uL Lymphocytes # (1.0-4.8) k/uL Carbon Dioxide (22-30) mmol/L BUN (9-20) mg/dL Glucose (74-99) mg/dL POC Glucose (mg/dL) 216 H 129 H 154 H (70-110) mg/dL Total Bilirubin (0.2-1.3) mg/dL AST (17-59) U/L ALT (4-49) U/L Alkaline Phosphatase (38-126) U/L Total Protein (6.3-8.2) g/dL Albumin (3.5-5.0) g/dL 10/06/23 10/06/23 10/06/23 Range/Units 06:37 06:37 11:37 WBC 14.6 H (3.8-10.6) k/uL MCHC 30.9 L (31.0-37.0) g/dL RDW 16.6 H (11.5-15.5) % Neutrophils # 13.4 H (1.3-7.7) k/uL Lymphocytes # 0.3 L (1.0-4.8) k/uL Carbon Dioxide 35 H (22-30) mmol/L BUN 43 H (9-20) mg/dL Glucose 172 H (74-99) mg/dL POC Glucose (mg/dL) 239 H (70-110) mg/dL Total Bilirubin 2.3 H (0.2-1.3) mg/dL AST 131 H (17-59) U/L ALT 150 H (4-49) U/L Alkaline Phosphatase 509 H (38-126) U/L Total Protein 5.7 L (6.3-8.2) g/dL Albumin 2.9 L (3.5-5.0) g/dL
--- NOTE | 2023-10-06 14:18 | P.PN ---
Subjective Progress Note Date: 10/06/23 Principal diagnosis: Acute hypoxic respiratory failure secondary to right upper lobe consolidation, adenocarcinoma right lung Patient is a 68-year-old white male with past medical history significant for hypertension, hyperlipidemia, diabetes, chronic obstructive pulmonary disease, former tobacco dependence. Primary care provider is Dr. Castelan. Patient's chief complaint is a persistent cough for the last 2 months. He has been seen by multiple urgent care clinics, treated with courses of antibiotics and steroids without any significant improvement in his symptoms. He did go to his primary care provider yesterday, who directed him to the emergency department. He is complaining of a persistent cough over the last 2 months. Previously productive with yellow sputum, now non-productive. No hemoptysis. The cough has interfered with his sleeping. He is also been short of breath with minimal exertion. His rescue inhaler has not been providing much relief. He has been generally weak. Denies fevers. Denies sick contacts. He does have history of COPD. He has history of heavy tobacco dependence, quitting approximately 1 month ago. Reports [id number] smoking history. He has had also poor appetite. Endorses 20 pound weight loss over 2-month timeframe. Denies any history of cancer. Chest x-ray done arrival shows a suspicious right perihilar masslike opacity and volume loss. CBC unremarkable without leukocytosis. CMP: Sodium 136, potassium 4.3, chloride 105, serum bicarb 23, BUN 19, creatinine 0.83, glucose 137. Normal saline infusing at 50 MLS per hour. LFTs are mildly elevated. AST 97, ALT 81, ALP 407. Total bilirubin 2.9. Troponin less than 0.012. Patient is currently resting comfortably on room air. He continues to have persistent cough, which is currently nonproductive. Afebrile. Vital signs are stable. Patient will be taken down for CT of the chest tonight. The patient is seen today September 30, 2023 in follow-up on the regular medical floor. He is currently resting in bed. Awake and alert in no acute distress. He did not denies any worsening shortness of breath, cough or congestion. He is maintaining good O2 saturations in room air. He remains on normal saline at 50 MLS per hour. Continued on a heparin drip. Plan is for bronchoscopy with biopsies today. Heparin will be discontinued at 10 AM. Ultrasound of the chest revealed a right sided pleural effusion with a 4.6 cm pocket. Ultrasound of the liver revealed findings suspicious for portal venous thrombosis. Heterogeneity could be related to underlying hepatocellular disease. CAT scan of the abdomen pelvis revealed portal vein thrombosis extending from the main portal vein into the left portal vein. The right portal vein remains patent. No involvement in the superior mesenteric vein. Minimal abdominal volume of abdominal and pelvic ascites. Right pleural effusion. White count 10.6. Hemoglobin 11.6. Platelets 283. Sodium 139. Potassium 3.9. Bicarb 22. BUN 12. Creatinine 0.8. Glucose 79. He is continued on DuoNeb inhalations, Symbicort, prednisone. Antibiotics in the form of Zosyn and Zithromax. The patient is seen today October 01, 2023 in follow-up on the regular medical floor. He is awake and alert in no acute distress. Resting comfortably in bed. Still with a loose nonproductive cough. Continue good O2 saturations in the mid 90s on 2 L/min per nasal cannula. He has normal saline at 50 MLS per hour. Continued on a heparin drip. He did undergo bronchoscopy with biopsies and BAL. Cultures and cytology pending. White count 15.2. Hemoglobin 11.6. Platelets 253. Sodium 139. Potassium 4.2. Bicarb 22. BUN 13. Creatinine 0.67. Glucose 103. He remains on DuoNeb inhalations, Symbicort, prednisone taper. Antibiotics in the form of azithromycin. Robitussin and Tessalon Perles for his cough. The patient is seen today October 02, 2023 in follow-up in the intensive care unit. Approximately 3:00 this morning the patient had been coughing excessively and requiring a 15 L nonrebreather mask to maintain O2 saturations in the 90s. Chest x-ray revealed right upper lobe addition with volume loss. Concern for o bstructing mass or lesion. He is status post bronchoscopy with biopsies. He did develop extensive consolidation of the left upper and lower lobes. Possibly aspiration. He also developed atrial fibrillation with a rapid ventricular response. White count 18.4. Hemoglobin 12.5. Platelets 257. Sodium 135. Potassium 4.3. Bicarb 29. BUN 18. Creatinine 0.68. Glucose 167. Arterial blood gases on 75% FiO2 revealed a PaO2 of 69, pCO2 43 and a pH of 7.38. proBNP 1090. TSH 0.582. He has been initiated on Eliquis. He remains on bronchodilators, steroids, Tessalon Perles. He was given Lasix 80 mg IVP x 1. Remains on a Cardizem drip at 5 mg an hour. Today on 10/03/2023, remains in the ICU on 15 L high flow nasal cannula. Patient is off Cardizem drip, he is on anticoagulation therapy for portal vein thrombosis. Seems to be comfortable, not in distress. Awaiting the final pathology report from his bronchoscopy and endobronchial biopsy. In the meantime I would recommend an ultrasound of the chest, may consider right-sided thoracentesis if pathology comes back negative for malignancy. WBC count is 15.4 hemoglobin 12.6 basic metabolic profile is normal and renal profile is nor mal chest x-ray continues to show multifocal airspace opacities with a right pleural effusion and consolidation of the right midlung. Patient was today on 10/04/23, patient remains in the ICU, on high flow nasal cannula, on Cardizem drip, overall status is marginal at best. Chest x-ray continues to show multiple abnormalities, unchanged. Pathology report from his lung biopsy is pending. Patient had ultrasound, showed small to moderate pleural effusion, could consider thoracentesis if no tissue diagnosis is made by bronchoscopy and endobronchial biopsy. WBC count is 15.0 hemoglobin 11.7 tay ctrolytes are normal renal profile is normal liver enzymes are a bit elevated with elevated alkaline phosphatase of 421 AST of 104 and ALT of 105 Reevaluated today on 01/05/24, patient remains in the ICU, remains on high flow nasal cannula, 15 L/min, and intermittently on BiPAP 10/5/80%. Not much of a change has been noted on this patient, overall prognosis remains poor and guarded, pathology from his bronchial biopsy is pending, may have to consider addressing CODE STATUS after a tissue diagnosis is made. Meantime the patient remains full code. And he is marginal at best. Chest x-ray is basically unchanged, continues to show significant abnormalities on the chest as noted earlier. Patient has multifocal opacities and is airspace disease with right- sided pleural effusion with consolidation in the right midlung WBC count is 16.2 hemoglobin 13.5 electrolytes are normal BUN is 45 creatinine 0.57 liver enzymes are significantly elevated with elevated alkaline phosphatase. Patient was evaluated today on 10/06/2023, remains on 5 L nasal cannula, O2 sats is 93%, intermittently patient has been on BiPAP. His pathology came back positive for pulmonary adenocarcinoma, and today I had a chance to discuss the findings with the patient. Explained to him that his prognosis is extremely poor considering all the other comorbidities that he has. He is undecided about CODE STATUS. Surgery to evaluate the patient today regarding his malignancy. His x-ray continues to show right perihilar consolidation, and multiple interstitial findings noted in the left lung. WBC count is 14.6 hemoglobin 13.3 basic metabolic profile is normal BUN is 43 creatinine 0.73 Objective - Vital Signs Vital signs: Vital Signs Temp 98.5 F 10/06/23 07:45 Pulse 122 H 10/06/23 12:57 Resp 21 10/06/23 11:30 BP 114/69 10/06/23 11:30 Pulse Ox 93 L 10/06/23 11:30 FiO2 6 10/05/23 14:15 Intake & Output 10/05/23 10/06/23 10/06/23 18:59 06:59 18:59 Intake Total 475.000 110 20 Output Total 1390 690 105 Balance -915.000 -580 -85 Weight 74.5 kg Intake: IV 110 110 20 0.9% NS Carrier 110 110 20 Intake, IV Titration 125.000 Amount Diltiazem 125 mg In 125.000 Sodium Chloride 0.9% 100 ml @ Per Protocol IV .Q0M [facility] Rx#:[id number] Oral 240 Output: Urine 1390 690 105 Other: Voiding Method Indwelling Catheter Indwelling Catheter Indwelling Catheter - Exam GENERAL EXAM: Reveals 68-year-old white male in no distress on 5 L nasal cannula HEAD: Normocephalic. EYES: Normal reaction of pupils, equal size. NOSE: Clear with pink turbinates. THROAT: No erythema or exudates. NECK: No masses, no JVD. CHEST: No chest wall deformity. LUNGS: Diminished breath sounds at the bases CVS: S1 and S2 normal with no audible murmur, regular rhythm. ABDOMEN: No hepatosplenomegaly, normal bowel sounds, no guarding or rigidity. SKIN: No rashes CENTRAL NERVOUS SYSTEM: Alert oriented x 3 no gross focal neurologic deficits EXTREMITIES: No clubbing edema or cyanosis - Labs CBC & Chem 7: 10/06/23 06:37 10/06/23 06:37 Labs: Abnormal Lab Results - Last 24 Hours (Table) 10/05/23 10/05/23 10/06/23 Range/Units 16:30 20:04 06:15 WBC (3.8-10.6) k/uL MCHC (31.0-37.0) g/dL RDW (11.5-15.5) % Neutrophils # (1.3-7.7) k/uL Lymphocytes # (1.0-4.8) k/uL Carbon Dioxide (22-30) mmol/L BUN (9-20) mg/dL Glucose (74-99) mg/dL POC Glucose (mg/dL) 216 H 129 H 154 H (70-110) mg/dL Total Bilirubin (0.2-1.3) mg/dL AST (17-59) U/L ALT (4-49) U/L Alkaline Phosphatase (38-126) U/L Total Protein (6.3-8.2) g/dL Albumin (3.5-5.0) g/dL 10/06/23 10/06/23 10/06/23 Range/Units 06:37 06:37 11:37 WBC 14.6 H (3.8-10.6) k/uL MCHC 30.9 L (31.0-37.0) g/dL RDW 16.6 H (11.5-15.5) % Neutrophils # 13.4 H (1.3-7.7) k/uL Lymphocytes # 0.3 L (1.0-4.8) k/uL Carbon Dioxide 35 H (22-30) mmol/L BUN 43 H (9-20) mg/dL Glucose 172 H (74-99) mg/dL POC Glucose (mg/dL) 239 H (70-110) mg/dL Total Bilirubin 2.3 H (0.2-1.3) mg/dL AST 131 H (17-59) U/L ALT 150 H (4-49) U/L Alkaline Phosphatase 509 H (38-126) U/L Total Protein 5.7 L (6.3-8.2) g/dL Albumin 2.9 L (3.5-5.0) g/dL Assessment and Plan Assessment: Impression: Acute hypoxemic respiratory failure secondary to right upper lobe consolidation and new extensive pulmonary vascular congestion versus aspiration pneumonia Right lung adenocarcinoma, biopsy-proven Atrial fibrillation with a rapid ventricular response, presently under control Right perihilar masslike, pathology came back positive for adenocarcinoma Unintentional 20 pound weight loss, over 2-month timeframe Chronic obstructive pulmonary disease Former tobacco dependence, quitting approximately 1 month ago, with [id number] history Elevated liver enzymes ultrasound of liver reveals findings suspicious for portal venous thrombosis. Hypertension History of hyperlipidemia Diabetes mellitus type 2 Portal vein thrombosis Medical debility and poor overall physical state Recommendation: Continue to monitor in the ICU and titrate oxygen accordingly remains on high flow nasal cannula Continue present supportive care measures Discussed with the patient the findings from his lung biopsy Touch bases on CODE STATUS, patient is undecided Continue anticoagulation therapy patient is on Eliquis Continue bronchodilators and steroids for underlying COPD Oncology to evaluate the patient Prognosis is extremely poor Will continue to follow closely. Time with Patient: Less than 30
--- NOTE | 2023-10-06 14:48 | P.PN ---
Subjective Progress Note Date: 10/06/23 Hospital Course: 68 year old M with PMH of NIDDM, HTN, HLD, COPD not on home O2 presented to the ED for progressively worsening exertional SOB associated with productive cough. Also 20 lbs weight loss over 6 weeks due to poor appetite. Attempted multiple rounds of antibiotics, steroids and inhalers without much relief. In the ED he underwent extensive evaluation. BP 105/59, HR 96, T 97.1F, RR 18, 96% on RA. CBC, Coag panel, CMP significant for RBC 4.25, Hg 12.4, Hct 37.9, PT 13.7, INR 1.3, Na 136, glu 137, T. Bili 2.9, AST 97, ALT 81, alk phos 407, alb 3.3. Troponin < 0.012. Procal 0.18. EKG showed sinus arrhythmia with RBBB. CXR right midlung consolidation. CT chest performed showed RUL consolidation with volume loss and interstitial edema in the right lung with moderate right pleural effusion. Patient was started on Azithromycin and admitted for Pulmonary evaluation. Liver US was ordered for transaminitis which showed possible clot in the MPV and LPV and GB wall thickening with pericholecystic fluid and gallstone. He was started on Zosyn and Heparin drip as well. Vascular surgery consulted, CTA AP completed confirming portal vein thrombosis MPV into the LPV, recommended no surgical intervention, Hematology consulted and heparin drip transitioned to Eliquis on 09/30. Surgery consulted for possible cholecystitis. CTA AP showed a contracted gallbladder. Given his lack of symptoms, Zosyn discontinued and patient advised no acute surgical intervention and outpatient follow up. He underwent bronchoscopy with BAL on 09/29 where biopsies and cultures were obtained. He failed his home O2 eval on 09/30. A-team called on 09/30 for hypoxia, required BiPAP, CXR showing worsening consolidation in the left lung, as well as acute pulmonary edema. Was also tachycardic, A-fib RVR. Started on Cardizem drip. Cardiology was consulted. Was started on IV Lasix now transition to p.o. Bumex. Patient has been delirious, now improving. Echocardiogram showed severe pulmonary hypertension otherwise normal LV size and systolic function. Pathology report came back positive for invasive poorly differentiated pulmonary adenocarcinoma. Oncology following. Subjective: Patient seen and examined at bedside. No acute events overnight. Family just received news about cancer diagnosis. Patient is feeling dejected. Respiratory function slightly improved. Pertinent positives and negatives as discussed above, a complete review of systems was performed and all other systems are negative. Vitals Signs Reviewed. General: Nontoxic, no distress, appears at stated age, chronically ill-appearing Derm: Warm, dry Head: Atraumatic, normocephalic, symmetric Eyes: EOMI, no lid lag, anicteric sclera Mouth: No lip lesion, mucus membranes moist Cardiovascular: S1S2 reg, no murmur Lungs: Bilateral rhonchi, no accessory muscle use, supplemental oxygen Abdominal: Soft, nontender to palpation, no guarding, no appreciable organomegaly Ext: No gross muscle atrophy, no edema, no contractures Neuro: CN II-XI grossly intact, no focal neuro deficits Psych: Alert, oriented, appropriate affect Data Reviewed Today: Pertinent Labs: WBC 14.6, creatinine 0.73, blood sugars range between 1 29-2 39, total bili 2.3, AST 131, ALT 150, ALP 519 Imaging: Chest x-ray independently interpreted, similar to yesterday. Assessment and Plan: Acute hypoxic respiratory failure New diagnosis of invasive poorly differentiated lung adenocarcinoma Suspected postobstructive pneumonia, resolved Acute COPD exacerbation Acute pulmonary edema -Pulmonology note reviewed, continue to wean oxygen, continue Perforomist twice daily, budesonide twice daily, DuoNebs 4 times daily, and as needed, Solu-Medrol 60 IV every 6 hours -Status post azithromycin -Oncology following Diabetes mellitus with hyperglycemia, worsened with steroids -Continue Levemir 20 units nightly, aspart 7 units 3 times daily, sliding scale insulin, monitor for hypoglycemia Atrial fibrillation with RVR -Cardiology following -Transition to oral Cardizem 30 4 times daily, metoprolol 100 twice daily, Eliquis 5 twice daily Hospital induced delirium, resolving -Sitter if necessary. Avoid sedatives. Frequent re-direction. Transaminitis: Obstructive likely related to below. Portal vein thrombosis seen on Liver US: Vascular Surgery recommends no surgical intervention. Eliquis 5 mg PO BID. Follow up with Hematology in the outpatient setting. -This is likely in the setting of malignancy Possible cholecystitis seen on Liver US: CT shows no findings of cholecystitis. No antibiotics at this time. Surgery recommends outpatient follow up. Normocytic anemia, resolved Supratherapeutic INR: Likely related to livery dysfunction. Hypertension: Lisinopril 40 mg PO QD, also on Cardizem 30 mg 4 times daily BPH: Doxazosin 4 mg PO QD. Proscar 5 mg PO QD. DVT ppx: Eliquis Code status: Full code Anticipated discharge place: Pending clinical course Anticipated discharge time: Pending clinical course Objective - Vital Signs Vital signs: Vital Signs Temp 98.5 F 10/06/23 07:45 Pulse 122 H 10/06/23 12:57 Resp 21 10/06/23 11:30 BP 114/69 10/06/23 11:30 Pulse Ox 93 L 10/06/23 11:30 FiO2 6 10/05/23 14:15 Intake & Output 10/05/23 10/06/23 10/06/23 18:59 06:59 18:59 Intake Total 475.000 110 20 Output Total 1390 690 105 Balance -915.000 -580 -85 Weight 74.5 kg Intake: IV 110 110 20 0.9% NS Carrier 110 110 20 Intake, IV Titration 125.000 Amount Diltiazem 125 mg In 125.000 Sodium Chloride 0.9% 100 ml @ Per Protocol IV .Q0M [facility] Rx#:[id number] Oral 240 Output: Urine 1390 690 105 Other: Voiding Method Indwelling Catheter Indwelling Catheter Indwelling Catheter - Labs CBC & Chem 7: 10/06/23 06:37 10/06/23 06:37 Labs: Abnormal Lab Results - Last 24 Hours (Table) 10/05/23 10/05/23 10/06/23 Range/Units 16:30 20:04 06:15 WBC (3.8-10.6) k/uL MCHC (31.0-37.0) g/dL RDW (11.5-15.5) % Neutrophils # (1.3-7.7) k/uL Lymphocytes # (1.0-4.8) k/uL Carbon Dioxide (22-30) mmol/L BUN (9-20) mg/dL Glucose (74-99) mg/dL POC Glucose (mg/dL) 216 H 129 H 154 H (70-110) mg/dL Total Bilirubin (0.2-1.3) mg/dL AST (17-59) U/L ALT (4-49) U/L Alkaline Phosphatase (38-126) U/L Total Protein (6.3-8.2) g/dL Albumin (3.5-5.0) g/dL 10/06/23 10/06/23 10/06/23 Range/Units 06:37 06:37 11:37 WBC 14.6 H (3.8-10.6) k/uL MCHC 30.9 L (31.0-37.0) g/dL RDW 16.6 H (11.5-15.5) % Neutrophils # 13.4 H (1.3-7.7) k/uL Lymphocytes # 0.3 L (1.0-4.8) k/uL Carbon Dioxide 35 H (22-30) mmol/L BUN 43 H (9-20) mg/dL Glucose 172 H (74-99) mg/dL POC Glucose (mg/dL) 239 H (70-110) mg/dL Total Bilirubin 2.3 H (0.2-1.3) mg/dL AST 131 H (17-59) U/L ALT 150 H (4-49) U/L Alkaline Phosphatase 509 H (38-126) U/L Total Protein 5.7 L (6.3-8.2) g/dL Albumin 2.9 L (3.5-5.0) g/dL
[2023-10-06 15:34] VITALS: BMI 27.3
[2023-10-06 16:23] LABS: Glucose,Whole Blood 301 mg/dL (70-110)
[2023-10-06] MEDS: SALT AND SODA MOUTHWASH 1,000 ML PO SCH (18:31)
[2023-10-06 20:46] LABS: Glucose,Whole Blood 245 mg/dL (70-110)
--- NOTE | 2023-10-06 20:52 | P.PN ---
Subjective Progress Note Date: 10/06/23 Principal diagnosis: Portal vein thrombosis, NSCLC In f/u pt denies fevers, SOB, O2 down to 5L, no N,V, abd pain, bleeding. He is distressed with new diagnosis of cancer Objective - Vital Signs Vital signs: Vital Signs Temp 98.5 F 10/06/23 07:45 Pulse 122 H 10/06/23 12:57 Resp 21 10/06/23 11:30 BP 114/69 10/06/23 11:30 Pulse Ox 93 L 10/06/23 11:30 FiO2 6 10/05/23 14:15 Intake & Output 10/05/23 10/06/23 10/06/23 18:59 06:59 18:59 Intake Total 475.000 110 20 Output Total 1390 690 105 Balance -915.000 -580 -85 Weight 74.5 kg Intake: IV 110 110 20 0.9% NS Carrier 110 110 20 Intake, IV Titration 125.000 Amount Diltiazem 125 mg In 125.000 Sodium Chloride 0.9% 100 ml @ Per Protocol IV .Q0M [facility] Rx#:[id number] Oral 240 Output: Urine 1390 690 105 Other: Voiding Method Indwelling Catheter Indwelling Catheter Indwelling Catheter - Constitutional General appearance: Present: average body habitus, cooperative, no acute distress - EENT Eyes: Present: anicteric sclerae, EOMI ENT: Present: hearing grossly normal - Respiratory Respiratory: bilateral: diminished - Cardiovascular Rhythm: irregularly irregular Abnormal Heart Sounds: Absent: systolic murmur, diastolic murmur, rub, S3 Gallop, S4 Gallop, click, other - Peripheral edema leg Peripheral Edema: bilateral: None - Gastrointestinal General gastrointestinal: Present: distended, soft - Neurologic Neurologic: Present: CNII-XII intact - Musculoskeletal Musculoskeletal: Present: generalized weakness - Psychiatric Psychiatric: Present: A&O x's 3, appropriate affect, intact judgment & insight - Labs CBC & Chem 7: 10/06/23 06:37 10/06/23 06:37 Labs: Abnormal Lab Results - Last 24 Hours (Table) 10/05/23 10/05/23 10/06/23 Range/Units 16:30 20:04 06:15 WBC (3.8-10.6) k/uL MCHC (31.0-37.0) g/dL RDW (11.5-15.5) % Neutrophils # (1.3-7.7) k/uL Lymphocytes # (1.0-4.8) k/uL Carbon Dioxide (22-30) mmol/L BUN (9-20) mg/dL Glucose (74-99) mg/dL POC Glucose (mg/dL) 216 H 129 H 154 H (70-110) mg/dL Total Bilirubin (0.2-1.3) mg/dL AST (17-59) U/L ALT (4-49) U/L Alkaline Phosphatase (38-126) U/L Total Protein (6.3-8.2) g/dL Albumin (3.5-5.0) g/dL 10/06/23 10/06/23 10/06/23 Range/Units 06:37 06:37 11:37 WBC 14.6 H (3.8-10.6) k/uL MCHC 30.9 L (31.0-37.0) g/dL RDW 16.6 H (11.5-15.5) % Neutrophils # 13.4 H (1.3-7.7) k/uL Lymphocytes # 0.3 L (1.0-4.8) k/uL Carbon Dioxide 35 H (22-30) mmol/L BUN 43 H (9-20) mg/dL Glucose 172 H (74-99) mg/dL POC Glucose (mg/dL) 239 H (70-110) mg/dL Total Bilirubin 2.3 H (0.2-1.3) mg/dL AST 131 H (17-59) U/L ALT 150 H (4-49) U/L Alkaline Phosphatase 509 H (38-126) U/L Total Protein 5.7 L (6.3-8.2) g/dL Albumin 2.9 L (3.5-5.0) g/dL - Imaging and Cardiology Chest x-ray: report reviewed Assessment and Plan (1) Primary lung adenocarcinoma Current Visit: Yes Status: Acute Priority: High Code(s): C34.90 - MALIGNANT NEOPLASM OF UNSP PART OF UNSP BRONCHUS OR LUNG SNOMED Code(s): 342257224 (2) Portal vein thrombosis Current Visit: Yes Status: Acute Priority: High Code(s): I81 - PORTAL VEIN THROMBOSIS SNOMED Code(s): 83430857 Plan: Primary lung adenocarcinoma -Symptomatic on admit, shortness of breath and cough x 2 months. 20 pound weight loss in 8 weeks. Concerns for malignancy on CT of the chest with contrast, right upper lobe consolidation with volume loss and interstitial edema, moderate right pleural effusion. -S/P bronchoscopy with BAL and brushings. Brushings and lavage were nondiagnostic. Transbronchial biopsy was positive for pulm adenocarcinoma with signet ring features. -These results were reviewed with the patient. Came back to talk with the daughter about diagnosis and plan of care. They understand that PET is needed for final staging-we do not know stage yet. We discussed that specimen is being sent for molecular studies that can have an impact on treatment options if the tumor has specific mutations. Specimen has been requested, order sent for sched of PET. Will contact pt with appt dates and times. F/U with Med Onc already scheduled. All questions were answered to pt and daughter satisfaction. -Pt encouraged to get up and get eating-even if it is supplemental drinks for now. Portal vein thrombosis -CT AP showing portal vein thrombosis extending from the main portal vein into the left portal vein. -Has been transitioned to eliquis, no reported bleeding -Surgery following patient. No surgical intervention for gallstones with ch olecystitis planned at this time. -Vascular has seen the patient. CT angiogram of the abdomen and pelvis done. Right portal vein remains patent. No involvement of the superior mesenteric vein. We are consulted for anticoagulation recommendations. Per Vascular, no surgical intervention is indicated at this time. -Jak2 [id number] and Jak2 exon 12-15, was ordered to r/o MPN, pending results. Possible hypercoaguable workup in outpt setting -Recommendations for anticoagulation duration at this time is to stay on indefinitely. Will change recommendations if/when appropriate. attests:I have seen and examined pt, performed H&P, developed impression and plan of care. Discussed with dictator. Agree with documentation, dictated as a scribe.
--- NOTE | 2023-10-06 22:14 | P.PN ---
Subjective Progress Note Date: 10/06/23 This is a 70-year-old gentleman with a past medical history significant for diabetes and hypertension and dyslipidemia with no history of coronary artery disease or cardiac arrhythmia. The patient was admitted to the hospital few days ago with persistent cough and congestion was not getting better on out patient treatment and for that reason the patient was presented to the emergency department and subsequently he was admitted. He underwent further evaluation including an x-ray and that showed possible mass/consolidation. Subsequently the patient underwent a CT scan of the chest and that revealed the mass. He underwent bronchoscopy and biopsy but the results still pending at this point. Also the patient was found to have a portal vein thrombus. He is on oral anticoagulation using Eliquis. The patient was going to be discharged later on today but subsequently he was feeling worse with shortness of breath with exertion which has progressed on him associated with congestion as well. He was noted to be in atrial fibrillation with rapid ventricular response which is new to him. He was started on Cardizem IV. Repeated the chest x-ray after he went into respiratory failure revealed possible underlying pneumonia which has progressed significantly versus heart failure. His NT proBNP is not severely elevated. He was only on 2 L oxygen and supposed to go home and oxygen but currently he is on 10 L oxygen to maintain saturation above 90%. He is not experiencing any symptoms of chest pain or chest discomfort. Definitely he is congested on examination with a bilateral rhonchi. The physical examination otherwise is remarkable for stable vital signs with slight tachycardia and ir regular rhythm and no edema was noted in the lower extremities. The EKG showed atrial fibrillation with diffuse nonspecific ST and T wave abnormalities. Progress note October 03, 2023 Patient is doing well from cardiovascular standpoint. Patient converted out of atrial fibrillation and is maintained in sinus rhythm. Still requiring high flow nasal oxygen, still short of breath. October 05, 2023 BP 137/79, heart rate 100 bpm, continues to be in atrial fibrillation Labs showed WBC 16, hemoglobin 13, BUN 45, creatinine 0.5 Chest x-ray shows mild improved aeration in bilateral lung raman with per sistent right upper lobe mass. On exam has mildly elevated JVD, no significant swelling in bilateral lower extremity October 06, 2023 Blood pressure is controlled, heart rate is better controlled, continues to be in atrial fibrillation Chest x-ray shows mild improved aeration when compared to x-ray from yesterday. Patient is eager to go home. Family is considering possible hospice. They are awaiting hematology consult and recommendations on getting more insight about patient's prognosis. Assessment Acute hypoxic respiratory failure likely to be multifactorial and secondary to pneumonia and heart failure, moderate right-sided pleural effusion Atrial fibrillation with RVR which is a new diagnosis to the patient Right upper lobe mass suspected to be malignancy Multiple comorbid conditions including diabetes and hypertension and dyslipidemia Plan Continue p.o. Bumex 1 mg daily, Aldactone 25 mg daily. Add Farxiga 10 mg daily increase metoprolol to 100 mg twice daily Discontinue Cardizem drip. Start Cardizem 30 mg 4 times daily Monitor potassium and magnesium levels. Keep potassium at 4 magnesium at 2 At this time patient is stable from atrial fibrillation standpoint to be disc harged. Cardiology team will sign off. Please reconsult us in case of any question. His overall prognosis appears to be poor. The biopsy of his lung mass showed poorly differentiated cell. Await hematology oncology insight about prognosis. Objective - Vital Signs Vital signs: Vital Signs Temp 97.9 F 10/06/23 12:00 Pulse 56 L 10/06/23 22:00 Resp 8 L 10/06/23 22:00 BP 119/73 10/06/23 22:00 Pulse Ox 98 10/06/23 22:00 FiO2 6 10/05/23 14:15 Intake & Output 10/06/23 10/06/23 10/07/23 06:59 18:59 06:59 Intake Total 110 20 10 Output Total 690 555 60 Balance -580 -535 -50 Weight 74.5 kg 74.5 kg Intake: IV 110 20 10 0.9% NS Carrier 110 20 10 Output: Urine 690 555 60 Other: Voiding Method Indwelling Catheter Indwelling Catheter - Labs CBC & Chem 7: 10/06/23 06:37 10/06/23 06:37 Labs: Abnormal Lab Results - Last 24 Hours (Table) 10/06/23 10/06/23 10/06/23 Range/Units 06:15 06:37 06:37 WBC 14.6 H (3.8-10.6) k/uL MCHC 30.9 L (31.0-37.0) g/dL RDW 16.6 H (11.5-15.5) % Neutrophils # 13.4 H (1.3-7.7) k/uL Lymphocytes # 0.3 L (1.0-4.8) k/uL Carbon Dioxide 35 H (22-30) mmol/L BUN 43 H (9-20) mg/dL Glucose 172 H (74-99) mg/dL POC Glucose (mg/dL) 154 H (70-110) mg/dL Total Bilirubin 2.3 H (0.2-1.3) mg/dL AST 131 H (17-59) U/L ALT 150 H (4-49) U/L Alkaline Phosphatase 509 H (38-126) U/L Total Protein 5.7 L (6.3-8.2) g/dL Albumin 2.9 L (3.5-5.0) g/dL 10/06/23 10/06/23 10/06/23 Range/Units 11:37 16:22 20:45 WBC (3.8-10.6) k/uL MCHC (31.0-37.0) g/dL RDW (11.5-15.5) % Neutrophils # (1.3-7.7) k/uL Lymphocytes # (1.0-4.8) k/uL Carbon Dioxide (22-30) mmol/L BUN (9-20) mg/dL Glucose (74-99) mg/dL POC Glucose (mg/dL) 239 H 301 H 245 H (70-110) mg/dL Total Bilirubin (0.2-1.3) mg/dL AST (17-59) U/L ALT (4-49) U/L Alkaline Phosphatase (38-126) U/L Total Protein (6.3-8.2) g/dL Albumin (3.5-5.0) g/dL
[2023-10-07 06:33] LABS: African American GFR (CKD) >90 (>60 ml/min/1.73 sqM); Anion Gap 3 mmol/L; Blood Urea Nitrogen 42 mg/dL (9-20); Calcium 8.8 mg/dL (8.4-10.2); Carbon Dioxide 33 mmol/L (22-30); Chloride 100 mmol/L (98-107); Glucose 144 mg/dL (74-99); Non-African American GFR(CKD) >90 (>60 ml/min/1.73 sqM); Potassium 4.4 mmol/L (3.5-5.1); Sodium 136 mmol/L (137-145)
[2023-10-07 06:47] LABS: Anisocytosis Slight; Basophils % (A) 0 %; Eosinophils % (A) 0 %; HCT 43.1 % (39.0-53.0); HGB 14.3 gm/dL (13.0-17.5); Hypochromasia Slight; Lymphocytes # (A) 0.3 k/uL (1.0-4.8); Lymphocytes % (A) 2 %; MCH 29.8 pg (25.0-35.0); MCHC 33.1 g/dL (31.0-37.0); Mean Platelet Volume 9.1; Monocytes # (A) 0.7 k/uL (0-1.0); Monocytes % (A) 4 %; Neutrophils % (A) 93 %; Platelet Count 216 k/uL (150-450); RBC 4.79 m/uL (4.30-5.90); RDW 17.1 % (11.5-15.5); WBC 16.2 k/uL (3.8-10.6)
[2023-10-07 07:05] LABS: Glucose,Whole Blood 129 mg/dL (70-110)
[2023-10-07] MEDS: ASPIRIN 81 MG PO SCH (08:49)
[2023-10-07] MEDS: buPROPion XL 300 MG TAB.ER.24H PO SCH (08:49)
[2023-10-07 11:32] LABS: Glucose,Whole Blood 207 mg/dL (70-110)
--- NOTE | 2023-10-07 13:17 | P.PN ---
Subjective Progress Note Date: 10/07/23 Principal diagnosis: Acute hypoxic respiratory failure secondary to right upper lobe consolidation, adenocarcinoma right lung Patient is a 68-year-old white male with past medical history significant for hypertension, hyperlipidemia, diabetes, chronic obstructive pulmonary disease, former tobacco dependence. Primary care provider is Dr. Castelan. Patient's chief complaint is a persistent cough for the last 2 months. He has been seen by multiple urgent care clinics, treated with courses of antibiotics and steroids without any significant improvement in his symptoms. He did go to his primary care provider yesterday, who directed him to the emergency department. He is complaining of a persistent cough over the last 2 months. Previously productive with yellow sputum, now non-productive. No hemoptysis. The cough has interfered with his sleeping. He is also been short of breath with minimal exertion. His rescue inhaler has not been providing much relief. He has been generally weak. Denies fevers. Denies sick contacts. He does have history of COPD. He has history of heavy tobacco dependence, quitting approximately 1 month ago. Reports [id number] smoking history. He has had also poor appetite. Endorses 20 pound weight loss over 2-month timeframe. Denies any history of cancer. Chest x-ray done arrival shows a suspicious right perihilar masslike opacity and volume loss. CBC unremarkable without leukocytosis. CMP: Sodium 136, potassium 4.3, chloride 105, serum bicarb 23, BUN 19, creatinine 0.83, glucose 137. Normal saline infusing at 50 MLS per hour. LFTs are mildly elevated. AST 97, ALT 81, ALP 407. Total bilirubin 2.9. Troponin less than 0.012. Patient is currently resting comfortably on room air. He continues to have persistent cough, which is currently nonproductive. Afebrile. Vital signs are stable. Patient will be taken down for CT of the chest tonight. The patient is seen today September 30, 2023 in follow-up on the regular medical floor. He is currently resting in bed. Awake and alert in no acute distress. He did not denies any worsening shortness of breath, cough or congestion. He is maintaining good O2 saturations in room air. He remains on normal saline at 50 MLS per hour. Continued on a heparin drip. Plan is for bronchoscopy with biopsies today. Heparin will be discontinued at 10 AM. Ultrasound of the chest revealed a right sided pleural effusion with a 4.6 cm pocket. Ultrasound of the liver revealed findings suspicious for portal venous thrombosis. Heterogeneity could be related to underlying hepatocellular disease. CAT scan of the abdomen pelvis revealed portal vein thrombosis extending from the main portal vein into the left portal vein. The right portal vein remains patent. No involvement in the superior mesenteric vein. Minimal abdominal volume of abdominal and pelvic ascites. Right pleural effusion. White count 10.6. Hemoglobin 11.6. Platelets 283. Sodium 139. Potassium 3.9. Bicarb 22. BUN 12. Creatinine 0.8. Glucose 79. He is continued on DuoNeb inhalations, Symbicort, prednisone. Antibiotics in the form of Zosyn and Zithromax. The patient is seen today October 01, 2023 in follow-up on the regular medical floor. He is awake and alert in no acute distress. Resting comfortably in bed. Still with a loose nonproductive cough. Continue good O2 saturations in the mid 90s on 2 L/min per nasal cannula. He has normal saline at 50 MLS per hour. Continued on a heparin drip. He did undergo bronchoscopy with biopsies and BAL. Cultures and cytology pending. White count 15.2. Hemoglobin 11.6. Platelets 253. Sodium 139. Potassium 4.2. Bicarb 22. BUN 13. Creatinine 0.67. Glucose 103. He remains on DuoNeb inhalations, Symbicort, prednisone taper. Antibiotics in the form of azithromycin. Robitussin and Tessalon Perles for his cough. The patient is seen today October 02, 2023 in follow-up in the intensive care unit. Approximately 3:00 this morning the patient had been coughing excessively and requiring a 15 L nonrebreather mask to maintain O2 saturations in the 90s. Chest x-ray revealed right upper lobe addition with volume loss. Concern for o bstructing mass or lesion. He is status post bronchoscopy with biopsies. He did develop extensive consolidation of the left upper and lower lobes. Possibly aspiration. He also developed atrial fibrillation with a rapid ventricular response. White count 18.4. Hemoglobin 12.5. Platelets 257. Sodium 135. Potassium 4.3. Bicarb 29. BUN 18. Creatinine 0.68. Glucose 167. Arterial blood gases on 75% FiO2 revealed a PaO2 of 69, pCO2 43 and a pH of 7.38. proBNP 1090. TSH 0.582. He has been initiated on Eliquis. He remains on bronchodilators, steroids, Tessalon Perles. He was given Lasix 80 mg IVP x 1. Remains on a Cardizem drip at 5 mg an hour. Today on 10/03/2023, remains in the ICU on 15 L high flow nasal cannula. Patient is off Cardizem drip, he is on anticoagulation therapy for portal vein thrombosis. Seems to be comfortable, not in distress. Awaiting the final pathology report from his bronchoscopy and endobronchial biopsy. In the meantime I would recommend an ultrasound of the chest, may consider right-sided thoracentesis if pathology comes back negative for malignancy. WBC count is 15.4 hemoglobin 12.6 basic metabolic profile is normal and renal profile is nor mal chest x-ray continues to show multifocal airspace opacities with a right pleural effusion and consolidation of the right midlung. Patient was today on 10/04/23, patient remains in the ICU, on high flow nasal cannula, on Cardizem drip, overall status is marginal at best. Chest x-ray continues to show multiple abnormalities, unchanged. Pathology report from his lung biopsy is pending. Patient had ultrasound, showed small to moderate pleural effusion, could consider thoracentesis if no tissue diagnosis is made by bronchoscopy and endobronchial biopsy. WBC count is 15.0 hemoglobin 11.7 tay ctrolytes are normal renal profile is normal liver enzymes are a bit elevated with elevated alkaline phosphatase of 421 AST of 104 and ALT of 105 Reevaluated today on 01/05/24, patient remains in the ICU, remains on high flow nasal cannula, 15 L/min, and intermittently on BiPAP 10/5/80%. Not much of a change has been noted on this patient, overall prognosis remains poor and guarded, pathology from his bronchial biopsy is pending, may have to consider addressing CODE STATUS after a tissue diagnosis is made. Meantime the patient remains full code. And he is marginal at best. Chest x-ray is basically unchanged, continues to show significant abnormalities on the chest as noted earlier. Patient has multifocal opacities and is airspace disease with right- sided pleural effusion with consolidation in the right midlung WBC count is 16.2 hemoglobin 13.5 electrolytes are normal BUN is 45 creatinine 0.57 liver enzymes are significantly elevated with elevated alkaline phosphatase. Patient was evaluated today on 10/06/2023, remains on 5 L nasal cannula, O2 sats is 93%, intermittently patient has been on BiPAP. His pathology came back positive for pulmonary adenocarcinoma, and today I had a chance to discuss the findings with the patient. Explained to him that his prognosis is extremely poor considering all the other comorbidities that he has. He is undecided about CODE STATUS. Surgery to evaluate the patient today regarding his malignancy. His x-ray continues to show right perihilar consolidation, and multiple interstitial findings noted in the left lung. WBC count is 14.6 hemoglobin 13.3 basic metabolic profile is normal BUN is 43 creatinine 0.73 Patient was evaluated today on 10/07/2023, remains in the ICU as an overflow, remains on 5 L nasal cannula, O2 saturation is in the low 90s. Patient is feeling better, breathing easier, does not seem to be in distress, not comp laining of any pain, but he feels generally weak. Patient was seen by oncology, and recommending outpatient workup including a PET scan. In the meantime the patient is extremely weak, and I believe the patient will benefit from placement in a rehab facility. WBC count is 16.2 hemoglobin 14.3 electrolytes are normal renal profile is normal x-ray is basically showing no change in his right upper lobe findings/right perihilar area has an masslike consolidation and he has some interstitial changes noted on the left lung Objective - Vital Signs Vital signs: Vital Signs Temp 98.1 F 10/07/23 08:00 Pulse 61 10/07/23 12:28 Resp 26 H 10/07/23 10:00 BP 134/82 10/07/23 10:00 Pulse Ox 91 L 10/07/23 10:00 FiO2 6 10/05/23 14:15 Intake & Output 10/06/23 10/07/23 10/07/23 18:59 06:59 18:59 Intake Total 20 10 Output Total 555 400 Balance -535 -390 Weight 74.5 kg 75.6 kg Intake: IV 20 10 0.9% NS Carrier 20 10 Output: Urine 555 400 Other: Voiding Method Indwelling Catheter - Exam GENERAL EXAM: Reveals 68-year-old white male in no distress on 5 L nasal cannula HEAD: Normocephalic. EYES: Normal reaction of pupils, equal size. NOSE: Clear with pink turbinates. THROAT: No erythema or exudates. NECK: No masses, no JVD. CHEST: No chest wall deformity. LUNGS: Diminished breath sounds at the bases minimal crackles at the bases CVS: S1 and S2 normal with no audible murmur, regular rhythm. ABDOMEN: No hepatosplenomegaly, normal bowel sounds, no guarding or rigidity. SKIN: No rashes CENTRAL NERVOUS SYSTEM: Alert oriented x 3 no gross focal neurologic deficits EXTREMITIES: No clubbing edema or cyanosis - Labs CBC & Chem 7: 10/07/23 05:44 10/07/23 05:44 Labs: Abnormal Lab Results - Last 24 Hours (Table) 10/06/23 10/06/23 10/07/23 Range/Units 16:22 20:45 05:44 WBC 16.2 H (3.8-10.6) k/uL RDW 17.1 H (11.5-15.5) % Neutrophils # 15.0 H (1.3-7.7) k/uL Lymphocytes # 0.3 L (1.0-4.8) k/uL Sodium (137-145) mmol/L Carbon Dioxide (22-30) mmol/L BUN (9-20) mg/dL Glucose (74-99) mg/dL POC Glucose (mg/dL) 301 H 245 H (70-110) mg/dL 10/07/23 10/07/23 10/07/23 Range/Units 05:44 07:02 11:31 WBC (3.8-10.6) k/uL RDW (11.5-15.5) % Neutrophils # (1.3-7.7) k/uL Lymphocytes # (1.0-4.8) k/uL Sodium 136 L (137-145) mmol/L Carbon Dioxide 33 H (22-30) mmol/L BUN 42 H (9-20) mg/dL Glucose 144 H (74-99) mg/dL POC Glucose (mg/dL) 129 H 207 H (70-110) mg/dL Assessment and Plan Assessment: Impression: Acute hypoxemic respiratory failure secondary to right upper lobe consolidation and new extensive pulmonary vascular congestion versus aspiration pneumonia Right lung adenocarcinoma, biopsy-proven Atrial fibrillation with a rapid ventricular response, presently under control Right perihilar masslike, pathology came back positive for adenocarcinoma Unintentional 20 pound weight loss, over 2-month timeframe Chronic obstructive pulmonary disease Former tobacco dependence, quitting approximately 1 month ago, with [id number] history Elevated liver enzymes ultrasound of liver reveals findings suspicious for portal venous thrombosis. Hypertension History of hyperlipidemia Diabetes mellitus type 2 Portal vein thrombosis Medical debility and poor overall physical state Recommendation: Transfer to monitored bed and selective or possibly even medical surgical floor Continue present supportive care measures Consider placement in rehab facility for now Continue anticoagulation therapy patient is on Eliquis Continue bronchodilators and steroids for underlying COPD Prognosis is extremely poor Will continue to follow, again strongly recommend rehab placement Time with Patient: Less than 30
[2023-10-07] MEDS: DILTIAZEM CD 120 MG CAP.ER.24H PO SCH (13:19)
--- NOTE | 2023-10-07 13:50 | P.PN ---
Subjective Progress Note Date: 10/07/23 Hospital Course: 68 year old M with PMH of NIDDM, HTN, HLD, COPD not on home O2 presented to the ED for progressively worsening exertional SOB associated with productive cough. Also 20 lbs weight loss over 6 weeks due to poor appetite. Attempted multiple rounds of antibiotics, steroids and inhalers without much relief. In the ED he underwent extensive evaluation. BP 105/59, HR 96, T 97.1F, RR 18, 96% on RA. CBC, Coag panel, CMP significant for RBC 4.25, Hg 12.4, Hct 37.9, PT 13.7, INR 1.3, Na 136, glu 137, T. Bili 2.9, AST 97, ALT 81, alk phos 407, alb 3.3. Troponin < 0.012. Procal 0.18. EKG showed sinus arrhythmia with RBBB. CXR right midlung consolidation. CT chest performed showed RUL consolidation with volume loss and interstitial edema in the right lung with moderate right pleural effusion. Patient was started on Azithromycin and admitted for Pulmonary evaluation. Liver US was ordered for transaminitis which showed possible clot in the MPV and LPV and GB wall thickening with pericholecystic fluid and gallstone. He was started on Zosyn and Heparin drip as well. Vascular surgery consulted, CTA AP completed confirming portal vein thrombosis MPV into the LPV, recommended no surgical intervention, Hematology consulted and heparin drip transitioned to Eliquis on 09/30. Surgery consulted for possible cholecystitis. CTA AP showed a contracted gallbladder. Given his lack of symptoms, Zosyn discontinued and patient advised no acute surgical intervention and outpatient follow up. He underwent bronchoscopy with BAL on 09/29 where biopsies and cultures were obtained. He failed his home O2 eval on 09/30. A-team called on 09/30 for hypoxia, required BiPAP, CXR showing worsening consolidation in the left lung, as well as acute pulmonary edema. Was also tachycardic, A-fib RVR. Started on Cardizem drip. Cardiology was consulted. Was started on IV Lasix now transition to p.o. Bumex. Patient has been delirious, now improving. Echocardiogram showed severe pulmonary hypertension otherwise normal LV size and systolic function. Pathology report came back positive for invasive poorly differentiated pulmonary adenocarcinoma. Oncology following. Likely discharge home tomorrow Subjective: Patient seen and examined at bedside. No acute events overnight. Respiratory function stable. Pertinent positives and negatives as discussed above, a complete review of systems was performed and all other systems are negative. Vitals Signs Reviewed. General: Nontoxic, no distress, appears at stated age, chronically ill-appearing Derm: Warm, dry Head: Atraumatic, normocephalic, symmetric Eyes: EOMI, no lid lag, anicteric sclera Mouth: No lip lesion, mucus membranes moist Cardiovascular: S1S2 reg, no murmur Lungs: Bilateral rhonchi, no accessory muscle use, supplemental oxygen Abdominal: Soft, nontender to palpation, no guarding, no appreciable organomegaly Ext: No gross muscle atrophy, no edema, no contractures Neuro: CN II-XI grossly intact, no focal neuro deficits Psych: Alert, oriented, appropriate affect Data Reviewed Today: Pertinent Labs: WBC 16.2, sodium 136, creatinine 0.66, blood sugars range between 1 29-2 45 Imaging: Chest x-ray independently interpreted, similar to yesterday. Assessment and Plan: Acute hypoxic respiratory failure New diagnosis of invasive poorly differentiated lung adenocarcinoma Suspected postobstructive pneumonia, resolved Acute COPD exacerbation Acute pulmonary edema -Discussed management with pulmonology, recommending rehab. Transfer to floors. Continue to wean oxygen, continue Perforomist twice daily, budesonide twice daily, DuoNebs 4 times daily, and as needed, Solu-Medrol 60 IV every 6 hours -Status post azithromycin -Oncology following, MRI brain pending, outpatient PET Diabetes mellitus with hyperglycemia, worsened with steroids -Continue Levemir 20 units nightly, aspart 7 units 3 times daily, sliding scale insulin, monitor for hypoglycemia Atrial fibrillation with RVR -Cardiology following -Transition to oral Cardizem 30 4 times daily, metoprolol 100 twice daily, Eliquis 5 twice daily Hospital induced delirium, resolving -Sitter if necessary. Avoid sedatives. Frequent re-direction. Transaminitis: Obstructive likely related to below. Portal vein thrombosis seen on Liver US: Vascular Surgery recommends no surgical intervention. Eliquis 5 mg PO BID. Follow up with Hematology in the outpatient setting. -This is likely in the setting of malignancy Possible cholecystitis seen on Liver US: CT shows no findings of cholecystitis. No antibiotics at this time. Surgery recommends outpatient follow up. Normocytic anemia, resolved Supratherapeutic INR: Likely related to livery dysfunction. Hypertension: Lisinopril 40 mg PO QD, also on Cardizem 30 mg 4 times daily BPH: Doxazosin 4 mg PO QD. Proscar 5 mg PO QD. DVT ppx: Eliquis Code status: Full code Anticipated discharge place: Recommended rehab, which patient refused, does not want home care either. Will likely be going home with family Anticipated discharge time: Likely tomorrow Objective - Vital Signs Vital signs: Vital Signs Temp 98.1 F 10/07/23 08:00 Pulse 61 10/07/23 12:28 Resp 26 H 10/07/23 10:00 BP 134/82 10/07/23 10:00 Pulse Ox 91 L 10/07/23 10:00 FiO2 6 10/05/23 14:15 Intake & Output 10/06/23 10/07/23 10/07/23 18:59 06:59 18:59 Intake Total 20 10 Output Total 555 400 Balance -535 -390 Weight 74.5 kg 75.6 kg Intake: IV 20 10 0.9% NS Carrier 20 10 Output: Urine 555 400 Other: Voiding Method Indwelling Catheter - Labs CBC & Chem 7: 10/07/23 05:44 10/07/23 05:44 Labs: Abnormal Lab Results - Last 24 Hours (Table) 10/06/23 10/06/23 10/07/23 Range/Units 16:22 20:45 05:44 WBC 16.2 H (3.8-10.6) k/uL RDW 17.1 H (11.5-15.5) % Neutrophils # 15.0 H (1.3-7.7) k/uL Lymphocytes # 0.3 L (1.0-4.8) k/uL Sodium (137-145) mmol/L Carbon Dioxide (22-30) mmol/L BUN (9-20) mg/dL Glucose (74-99) mg/dL POC Glucose (mg/dL) 301 H 245 H (70-110) mg/dL 10/07/23 10/07/23 10/07/23 Range/Units 05:44 07:02 11:31 WBC (3.8-10.6) k/uL RDW (11.5-15.5) % Neutrophils # (1.3-7.7) k/uL Lymphocytes # (1.0-4.8) k/uL Sodium 136 L (137-145) mmol/L Carbon Dioxide 33 H (22-30) mmol/L BUN 42 H (9-20) mg/dL Glucose 144 H (74-99) mg/dL POC Glucose (mg/dL) 129 H 207 H (70-110) mg/dL
--- NOTE | 2023-10-07 13:57 | XR ---
EXAMINATION TYPE: XR orbit pre-MRI foreign body DATE OF EXAM: 10/07/2023 COMPARISON: NONE HISTORY: assess for metal in eyes for Mri TECHNIQUE: 3 views of the orbits are submitted. FINDINGS: No radiopaque foreign body identified. The patient is cleared for MRI. Paranasal sinuses we ll aerated. IMPRESSION: The patient is cleared for MRI.
--- NOTE | 2023-10-07 15:04 | MR ---
EXAMINATION TYPE: MR brain wo/w con DATE OF EXAM: 10/07/2023 2:48 PM CLINICAL INDICATION:Male, 68 years old with history of Initial staging, NSCLC, Initial staging, NSCLC COMPARISON: None TECHNIQUE: Multi planar, multi sequence imaging was performed through the brain including: T1, T2, In version recovery, susceptibility weighted imaging and gradient echo imaging and Diffusion weighted im aging. The patient was then given intravenous contrast and multi planar, T1 fat-saturation images wer e obtained. IV Contrast: 7.5 cc Gadavist FINDINGS: Cavum septum pellucidum et vergae. The humphreys-white junctions, ventricular system, basal cisterns appea r unremarkable. Diffusion-weighted imaging shows no evidence of restricted diffusion to suggest acut e/subacute infarct. Intracranial arterial flow voids are maintained. Midline structures show no abnor mality. Scattered foci of high T2 signal intensity are seen within the periventricular white matter. The susceptibility weighted images do not reveal any evidence for micro-hemorrhage. After administrat ion of gadolinium, no abnormal enhancement is seen. The bone marrow signal is within normal limits. Paranasal sinuses and mastoid air cells: No significant paranasal sinus disease. Visualized orbits: Orbital contents are intact. IMPRESSION: 1. No evidence of intracranial mass, acute/subacute infarct, or abnormal enhancement. 2. Nonspecific white matter changes, likely related to small vessel ischemic disease.
[2023-10-07 16:33] LABS: Glucose,Whole Blood 173 mg/dL (70-110)
--- NOTE | 2023-10-07 17:29 | P.PN ---
Subjective Progress Note Date: 10/07/23 No acute events. Patient resting comfortably in bedside chair. Patient reports significant improvement in breathing and cough since admission. Objective - Vital Signs Vital signs: Vital Signs Temp 98.1 F 10/07/23 08:00 Pulse 61 10/07/23 12:28 Resp 26 H 10/07/23 10:00 BP 134/82 10/07/23 10:00 Pulse Ox 91 L 10/07/23 10:00 FiO2 6 10/05/23 14:15 Intake & Output 10/06/23 10/07/23 10/07/23 18:59 06:59 18:59 Intake Total 20 10 Output Total 555 400 Balance -535 -390 Weight 74.5 kg 75.6 kg Intake: IV 20 10 0.9% NS Carrier 20 10 Output: Urine 555 400 Other: Voiding Method Indwelling Catheter - Constitutional General appearance: Present: no acute distress - EENT Eyes: Present: anicteric sclerae, EOMI ENT: Present: hearing grossly normal - Respiratory Details: breathing is even and unlabored - Cardiovascular Details: well perfused - Integumentary Integumentary: Absent: cyanotic, jaundiced - Neurologic Neurologic: Present: CNII-XII intact - Musculoskeletal Musculoskeletal: Present: strength equal bilaterally - Psychiatric Psychiatric: Present: A&O x's 3 - Labs CBC & Chem 7: 10/07/23 05:44 10/07/23 05:44 Labs: Abnormal Lab Results - Last 24 Hours (Table) 10/06/23 10/06/23 10/07/23 Range/Units 16:22 20:45 05:44 WBC 16.2 H (3.8-10.6) k/uL RDW 17.1 H (11.5-15.5) % Neutrophils # 15.0 H (1.3-7.7) k/uL Lymphocytes # 0.3 L (1.0-4.8) k/uL Sodium (137-145) mmol/L Carbon Dioxide (22-30) mmol/L BUN (9-20) mg/dL Glucose (74-99) mg/dL POC Glucose (mg/dL) 301 H 245 H (70-110) mg/dL 10/07/23 10/07/23 10/07/23 Range/Units 05:44 07:02 11:31 WBC (3.8-10.6) k/uL RDW (11.5-15.5) % Neutrophils # (1.3-7.7) k/uL Lymphocytes # (1.0-4.8) k/uL Sodium 136 L (137-145) mmol/L Carbon Dioxide 33 H (22-30) mmol/L BUN 42 H (9-20) mg/dL Glucose 144 H (74-99) mg/dL POC Glucose (mg/dL) 129 H 207 H (70-110) mg/dL Assessment and Plan (1) Portal vein thrombosis Current Visit: Yes Status: Acute Priority: High Code(s): I81 - PORTAL VEIN THROMBOSIS SNOMED Code(s): 30636325 (2) Lung consolidation Current Visit: Yes Status: Acute Priority: High Code(s): J18.1 - LOBAR PNEUMONIA, UNSPECIFIED ORGANISM SNOMED Code(s): 82798068 (3) Shortness of breath Current Visit: Yes Status: Acute Priority: High Code(s): R06.02 - SHORTNESS OF BREATH SNOMED Code(s): 054418899 Plan: Primary lung adenocarcinoma -Symptomatic on admit, shortness of breath and cough x 2 months. 20 pound weight loss in 8 weeks. Concerns for malignancy on CT of the chest with contrast, right upper lobe consolidation with volume loss and interstitial edema, moderate right pleural effusion. -S/P bronchoscopy with BAL and brushings. Brushings and lavage were nondiagnostic. Transbronchial biopsy was positive for pulm adenocarcinoma with s ignet ring features. -These results were reviewed with the patient. Came back to talk with the hanhsylvester morales about diagnosis and plan of care. They understand that PET is needed for final staging-we do not know stage yet. We discussed that specimen is being sent for molecular studies that can have an impact on treatment options if the tumor has specific mutations. Specimen has been requested -PET CT scheduled for 10/19, with clinic f.u on 10/25 -Pt encouraged to increase ambulation and oral intake as tolerated Portal vein thrombosis -CT AP showing portal vein thrombosis extending from the main portal vein into the left portal vein. -Has been transitioned to eliquis, no reported bleeding -Surgery following patient. No surgical intervention for gallstones with cholecystitis planned at this time. -Vascular has seen the patient. CT angiogram of the abdomen and pelvis done. Right portal vein remains patent. No involvement of the superior mesenteric vein. We are consulted for anticoagulation recommendations. Per Vascular, no surgical intervention is indicated at this time. -Jak2 [id number] and Jak2 exon 12-15, was ordered to r/o MPN, pending results. Possible hypercoaguable workup in outpt setting -Recommendations for anticoagulation duration at this time is to stay on indefinitely. Will change recommendations if/when appropriate.
[2023-10-07 20:15] LABS: Glucose,Whole Blood 161 mg/dL (70-110)
--- NOTE | 2023-10-07 21:28 | P.PN ---
Subjective Progress Note Date: 10/07/23 This is a 70-year-old gentleman with a past medical history significant for diabetes and hypertension and dyslipidemia with no history of coronary artery disease or cardiac arrhythmia. The patient was admitted to the hospital few days ago with persistent cough and congestion was not getting better on out patient treatment and for that reason the patient was presented to the emergency department and subsequently he was admitted. He underwent further evaluation including an x-ray and that showed possible mass/consolidation. Subsequently the patient underwent a CT scan of the chest and that revealed the mass. He underwent bronchoscopy and biopsy but the results still pending at this point. Also the patient was found to have a portal vein thrombus. He is on oral anticoagulation using Eliquis. The patient was going to be discharged later on today but subsequently he was feeling worse with shortness of breath with exertion which has progressed on him associated with congestion as well. He was noted to be in atrial fibrillation with rapid ventricular response which is new to him. He was started on Cardizem IV. Repeated the chest x-ray after he went into respiratory failure revealed possible underlying pneumonia which has progressed significantly versus heart failure. His NT proBNP is not severely elevated. He was only on 2 L oxygen and supposed to go home and oxygen but currently he is on 10 L oxygen to maintain saturation above 90%. He is not experiencing any symptoms of chest pain or chest discomfort. Definitely he is congested on examination with a bilateral rhonchi. The physical examination otherwise is remarkable for stable vital signs with slight tachycardia and ir regular rhythm and no edema was noted in the lower extremities. The EKG showed atrial fibrillation with diffuse nonspecific ST and T wave abnormalities. Progress note October 03, 2023 Patient is doing well from cardiovascular standpoint. Patient converted out of atrial fibrillation and is maintained in sinus rhythm. Still requiring high flow nasal oxygen, still short of breath. October 05, 2023 BP 137/79, heart rate 100 bpm, continues to be in atrial fibrillation Labs showed WBC 16, hemoglobin 13, BUN 45, creatinine 0.5 Chest x-ray shows mild improved aeration in bilateral lung raman with per sistent right upper lobe mass. On exam has mildly elevated JVD, no significant swelling in bilateral lower extremity October 06, 2023 Blood pressure is controlled, heart rate is better controlled, continues to be in atrial fibrillation Chest x-ray shows mild improved aeration when compared to x-ray from yesterday. Patient is eager to go home. Family is considering possible hospice. They are awaiting hematology consult and recommendations on getting more insight about patient's prognosis. October 07, 2023 Patient converted out of atrial fibrillation. Currently maintaining good hemodynamics, Assessment Acute hypoxic respiratory failure likely to be multifactorial and secondary to pneumonia and heart failure, moderate right-sided pleural effusion Atrial fibrillation with RVR which is a new diagnosis to the patient Right upper lobe mass suspected to be malignancy Multiple comorbid conditions including diabetes and hypertension and dyslipidemia Plan Continue p.o. Bumex 1 mg daily, Aldactone 25 mg daily. Add Farxiga 10 mg daily Reduce metoprolol to 25 mg twice daily Change Cardizem to Cardizem CD 120 mg daily Monitor potassium and magnesium levels. Keep potassium at 4 magnesium at 2 At this time patient is stable from atrial fibrillation standpoint to be discharged. Cardiology team will sign off. Please reconsult us in case of any question. His overall prognosis appears to be poor. The biopsy of his lung mass showed poorly differentiated cell. Await hematology oncology insight about prognosis. Objective - Vital Signs Vital signs: Vital Signs Temp 97.3 F L 10/07/23 16:30 Pulse 74 10/07/23 20:37 Resp 20 10/07/23 16:30 BP 128/80 10/07/23 16:30 Pulse Ox 99 10/07/23 16:30 FiO2 6 10/05/23 14:15 Intake & Output 10/07/23 10/07/23 10/08/23 06:59 18:59 06:59 Intake Total 10 400 Output Total 400 800 Balance -390 -400 Weight 75.6 kg Intake: IV 10 0.9% NS Carrier 10 Oral 400 Output: Urine 400 800 Other: Voiding Method Toilet Urinal - Labs CBC & Chem 7: 10/07/23 05:44 10/07/23 05:44 Labs: Abnormal Lab Results - Last 24 Hours (Table) 10/07/23 10/07/23 10/07/23 Range/Units 05:44 05:44 07:02 WBC 16.2 H (3.8-10.6) k/uL RDW 17.1 H (11.5-15.5) % Neutrophils # 15.0 H (1.3-7.7) k/uL Lymphocytes # 0.3 L (1.0-4.8) k/uL Sodium 136 L (137-145) mmol/L Carbon Dioxide 33 H (22-30) mmol/L BUN 42 H (9-20) mg/dL Glucose 144 H (74-99) mg/dL POC Glucose (mg/dL) 129 H (70-110) mg/dL 10/07/23 10/07/23 10/07/23 Range/Units 11:31 16:31 20:13 WBC (3.8-10.6) k/uL RDW (11.5-15.5) % Neutrophils # (1.3-7.7) k/uL Lymphocytes # (1.0-4.8) k/uL Sodium (137-145) mmol/L Carbon Dioxide (22-30) mmol/L BUN (9-20) mg/dL Glucose (74-99) mg/dL POC Glucose (mg/dL) 207 H 173 H 161 H (70-110) mg/dL
[2023-10-07 23:07] VITALS: RESP 16
[2023-10-08 04:42] VITALS: TEMP 98.4
[2023-10-08 06:18] LABS: Glucose,Whole Blood 162 mg/dL (70-110)
[2023-10-08] MEDS ORDERED: DILTIAZEM DRIP BOLUS FROM BAG 1 MG SOLN IV ONE (06:57)
[2023-10-08] MEDS: METOPROLOL TARTRATE 50 MG TAB PO SCH (06:59)
[2023-10-08] MEDS ORDERED: DILTIAZEM 125 MG in SODIUM CHLORIDE 0.9% 100 ML IV SCH (07:30)
[2023-10-08 10:00] LABS: Anisocytosis Slight; Basophils % (A) 0 %; Eosinophils % (A) 0 %; HCT 41.5 % (39.0-53.0); HGB 12.8 gm/dL (13.0-17.5); Hypochromasia Slight; Lymphocytes # (A) 0.3 k/uL (1.0-4.8); Lymphocytes % (A) 2 %; MCH 27.5 pg (25.0-35.0); MCHC 30.8 g/dL (31.0-37.0); MCV 89.4 fL (80.0-100.0); Mean Platelet Volume 9.6; Monocytes % (A) 7 %; Neutrophils % (A) 90 %; Platelet Count 266 k/uL (150-450); RBC 4.65 m/uL (4.30-5.90); RDW 17.4 % (11.5-15.5); WBC 14.4 k/uL (3.8-10.6)
[2023-10-08 10:10] LABS: African American GFR (CKD) >90 (>60 ml/min/1.73 sqM); Anion Gap 4 mmol/L; Blood Urea Nitrogen 34 mg/dL (9-20); Calcium 8.6 mg/dL (8.4-10.2); Carbon Dioxide 34 mmol/L (22-30); Chloride 97 mmol/L (98-107); Glucose 186 mg/dL (74-99); Non-African American GFR(CKD) >90 (>60 ml/min/1.73 sqM); Potassium 4.1 mmol/L (3.5-5.1); Sodium 135 mmol/L (137-145)
[2023-10-08 10:11] VITALS: BP 112/62
[2023-10-08 11:43] LABS: Glucose,Whole Blood 214 mg/dL (70-110)
--- NOTE | 2023-10-08 12:46 | P.PN ---
Subjective Progress Note Date: 10/08/23 Patient is a 68-year-old white male with past medical history significant for hypertension, hyperlipidemia, diabetes, chronic obstructive pulmonary disease, former tobacco dependence. Primary care provider is Dr. Castelan. Patient's chief complaint is a persistent cough for the last 2 months. He has been seen by multiple urgent care clinics, treated with courses of antibiotics and steroids without any significant improvement in his symptoms. He did go to his primary care provider yesterday, who directed him to the emergency department. He is complaining of a persistent cough over the last 2 months. Previously productive with yellow sputum, now non-productive. No hemoptysis. The cough has interfered with his sleeping. He is also been short of breath with minimal exertion. His rescue inhaler has not been providing much relief. He has been generally weak. Denies fevers. Denies sick contacts. He does have history of COPD. He has history of heavy tobacco dependence, quitting approximately 1 month ago. Reports [id number] smoking history. He has had also poor appetite. Endorses 20 pound weight loss over 2-month timeframe. Denies any history of cancer. Chest x-ray done arrival shows a suspicious right perihilar masslike opacity and volume loss. CBC unremarkable without leukocytosis. CMP: Sodium 136, potassium 4.3, chloride 105, serum bicarb 23, BUN 19, creatinine 0.83, glucose 137. Normal saline infusing at 50 MLS per hour. LFTs are mildly elevated. AST 97, ALT 81, ALP 407. Total bilirubin 2.9. Troponin less than 0.012. Patient is currently resting comfortably on room air. He continues to have persistent cough, which is currently nonproductive. Afebrile. Vital signs are stable. Patient will be taken down for CT of the chest tonight. The patient is seen today September 30, 2023 in follow-up on the regular medical floor. He is currently resting in bed. Awake and alert in no acute distress. He did not denies any worsening shortness of breath, cough or congestion. He is maintaining good O2 saturations in room air. He remains on normal saline at 50 MLS per hour. Continued on a heparin drip. Plan is for bronchoscopy with biopsies today. Heparin will be discontinued at 10 AM. Ultrasound of the chest revealed a right sided pleural effusion with a 4.6 cm pocket. Ultrasound of the liver revealed findings suspicious for portal venous thrombosis. Heterogeneity could be related to underlying hepatocellular disease. CAT scan of the abdomen pelvis revealed portal vein thrombosis extending from the main portal vein into the left portal vein. The right portal vein remains patent. No involvement in the superior mesenteric vein. Minimal abdominal volume of abdominal and pelvic ascites. Right pleural effusion. White count 10.6. Hemoglobin 11.6. Platelets 283. Sodium 139. Potassium 3.9. Bicarb 22. BUN 12. Creatinine 0.8. Glucose 79. He is continued on DuoNeb inhalations, Symbicort, prednisone. Antibiotics in the form of Zosyn and Zithromax. The patient is seen today October 01, 2023 in follow-up on the regular medical floor. He is awake and alert in no acute distress. Resting comfortably in bed. Still with a loose nonproductive cough. Continue good O2 saturations in the mid 90s on 2 L/min per nasal cannula. He has normal saline at 50 MLS per hour. Continued on a heparin drip. He did undergo bronchoscopy with biopsies and BAL. Cultures and cytology pending. White count 15.2. Hemoglobin 11.6. Platelets 253. Sodium 139. Potassium 4.2. Bicarb 22. BUN 13. Creatinine 0.67. Glucose 103. He remains on DuoNeb inhalations, Symbicort, prednisone taper. Antibiotics in the form of azithromycin. Robitussin and Tessalon Perles for his cough. The patient is seen today October 02, 2023 in follow-up in the intensive care unit. Approximately 3:00 this morning the patient had been coughing excessively and requiring a 15 L nonrebreather mask to maintain O2 saturations in the 90s. Chest x-ray revealed right upper lobe addition with volume loss. Concern for obstructing mass or lesion. He is status post bronchoscopy with biopsies. He did develop extensive consolidation of the left upper and lower lobes. Possibly aspiration. He also developed atrial fibrillation with a rapid ventricular response. White count 18.4. Hemoglobin 12.5. Platelets 257. Sodium 135. Potassium 4.3. Bicarb 29. BUN 18. Creatinine 0.68. Glucose 167. Arterial blood gases on 75% FiO2 revealed a PaO2 of 69, pCO2 43 and a pH of 7.38. proBNP 1090. TSH 0.582. He has been initiated on Eliquis. He remains on bronchodilators, steroids, Tessalon Perles. He was given Lasix 80 mg IVP x 1. Remains on a Cardizem drip at 5 mg an hour. The patient is seen today October 08, 2023 in follow-up on the regular medical floor. He was transferred out of the intensive care unit yesterday. He is currently sitting up in a chair. Awake and alert in no acute distress. He is maintaining O2 saturations in the 90s on 4 L/min per nasal cannula. He has been up ambulating to the bathroom with assistance. MRI of the brain revealed no evidence of metastatic lesions. He is continued on DuoNeb inhalations, Pulmicort and Perforomist inhalations, Solu-Medrol. Anticoagulated with Eliquis. He developed atrial fibrillation with rapid ventricular response. Cardizem drip at 10 mg an hour has been ordered. White count 14.4. Hemoglobin 12.8. Platelets 266. Sodium 135. Potassium 4.1. Bicarb 34. BUN 34. Creatinine 0.75. Glucose 186. Objective - Vital Signs Vital signs: Vital Signs Temp 98.4 F 10/08/23 04:41 Pulse 66 10/08/23 12:21 Resp 16 10/08/23 08:00 BP 112/62 10/08/23 08:00 Pulse Ox 94 L 10/08/23 09:32 FiO2 6 10/05/23 14:15 Intake & Output 10/07/23 10/08/23 10/08/23 18:59 06:59 18:59 Intake Total 400 340 Output Total 800 0 Balance -400 340 Weight 73.3 kg Intake: Oral 400 340 Output: Gastric Drainage 0 Urine 800 0 Stool 0 Urine/Stool Mix 0 Emesis 0 Oral Regurgitation 0 Other 0 Other: Voiding Method Toilet Toilet Toilet Urinal Urinal Urinal # Voids 2 0 # Bowel Movements 1 0 - Exam GENERAL EXAM: Alert, 68-year-old male patient, up in a chair, on 5 L, in no apparent distress. HEAD: Normocephalic. EYES: Normal reaction of pupils, equal size. NOSE: Clear with pink turbinates. THROAT: No erythema or exudates. NECK: No masses, no JVD. CHEST: No chest wall deformity. LUNGS: Equal air entry with bilateral scattered rhonchi. CVS: S1 and S2 normal with no audible murmur, irregular rhythm. ABDOMEN: No hepatosplenomegaly, normal bowel sounds, no guarding or rigidity. SPINE: No scoliosis or deformity SKIN: No rashes CENTRAL NERVOUS SYSTEM: No focal deficits, tone is normal in all 4 extremities. EXTREMITIES: There is no peripheral edema. No clubbing, no cyanosis. Peripheral pulses are intact. - Labs CBC & Chem 7: 10/08/23 08:47 10/08/23 08:47 Labs: Abnormal Lab Results - Last 24 Hours (Table) 10/07/23 10/07/23 10/08/23 Range/Units 16:31 20:13 06:13 WBC (3.8-10.6) k/uL Hgb (13.0-17.5) gm/dL MCHC (31.0-37.0) g/dL RDW (11.5-15.5) % Neutrophils # (1.3-7.7) k/uL Lymphocytes # (1.0-4.8) k/uL Sodium (137-145) mmol/L Chloride (98-107) mmol/L Carbon Dioxide (22-30) mmol/L BUN (9-20) mg/dL Glucose (74-99) mg/dL POC Glucose (mg/dL) 173 H 161 H 162 H (70-110) mg/dL 10/08/23 10/08/23 10/08/23 Range/Units 08:47 08:47 11:40 WBC 14.4 H (3.8-10.6) k/uL Hgb 12.8 L (13.0-17.5) gm/dL MCHC 30.8 L (31.0-37.0) g/dL RDW 17.4 H (11.5-15.5) % Neutrophils # 13.0 H (1.3-7.7) k/uL Lymphocytes # 0.3 L (1.0-4.8) k/uL Sodium 135 L (137-145) mmol/L Chloride 97 L (98-107) mmol/L Carbon Dioxide 34 H (22-30) mmol/L BUN 34 H (9-20) mg/dL Glucose 186 H (74-99) mg/dL POC Glucose (mg/dL) 214 H (70-110) mg/dL Assessment and Plan Assessment: Acute hypoxemic respiratory failure secondary to right upper lobe consolidation and new extensive pulmonary vascular congestion versus aspiration pneumonia Atrial fibrillation with a rapid ventricular response, transition to Eliquis, recurrent and on a Cardizem drip 10 mg an hour 10/08/2023 Right perihilar masslike consolidation, right pleural effusion measuring less than 5 cm. Bronchoscopy with biopsies on September 30, 2023 positive for adenocarcinoma Unintentional 20 pound weight loss, over 2-month timeframe Chronic obstructive pulmonary disease Former tobacco dependence, quitting approximately 1 month ago, with [id number] history Elevated liver enzymes, unknown significance, ultrasound of liver reveals findings suspicious for portal venous thrombosis. Underlying heterogeneity could be related to underlying hepatocellular disease. CT scan of the abdomen revealed a portal vein thrombosis extending from the main portal vein into the left portal vein. The right portal vein remains patent. No involving the superior mesenteric vein. Remains on a heparin drip Hypertension History of hyperlipidemia Diabetes mellitus type 2 Plan: The patient was seen and evaluated Labs and medications reviewed Currently on 5 L nasal cannula Titrate the FiO2 as tolerated Resumed on a Cardizem drip Anticoagulated with Eliquis Continue bronchodilators, steroids We will continue to follow I have personally seen and examined the patient, performed the documentation and the assessment and plan as written. Number of minutes spent on the visit: 10.
--- NOTE | 2023-10-08 14:57 | P.DS ---
Providers Date of admission: 09/28/23 20:34 Expected date of discharge: 10/08/23 Attending physician: Carrie Tenorio MD Consults: 09/28/23 20:53 Consult Physician Urgent Consulting Provider: Ivan Martines Consult Reason/Comments: pulmonary consolidation, shortness of breath Do you want consulting provider notified?: Yes 09/30/23 08:21 Consult Physician Routine Consulting Provider: Cesar Crowley Consult Reason/Comments: Portal venous thrombosis, possible lung mass Do you want consulting provider notified?: Yes 10/02/23 08:34 Consult Physician Stat Consulting Provider: George Fischer Consult Reason/Comments: AFib RVR Do you want consulting provider notified?: Yes [facility] Course: Discharge Diagnosis: Acute hypoxic respiratory failure New diagnosis of invasive poorly differentiated lung adenocarcinoma Suspected postobstructive pneumonia Acute COPD exacerbation Acute pulmonary edema Diabetes mellitus with hyperglycemia, worsened with steroids Atrial fibrillation with RVR Hospital induced delirium Transaminitis Portal vein thrombosis Normocytic anemia Supratherapeutic INR Hypertension BPH Hospital Course: 68 year old M with PMH of NIDDM, HTN, HLD, COPD not on home O2 presented to the ED for progressively worsening exertional SOB associated with productive cough. Also 20 lbs weight loss over 6 weeks due to poor appetite. Attempted multiple rounds of antibiotics, steroids and inhalers without much relief. In the ED he underwent extensive evaluation. BP 105/59, HR 96, T 97.1F, RR 18, 96% on RA. CBC, Coag panel, CMP significant for RBC 4.25, Hg 12.4, Hct 37.9, PT 13.7, INR 1.3, Na 136, glu 137, T. Bili 2.9, AST 97, ALT 81, alk phos 407, alb 3.3. Troponin < 0.012. Procal 0.18. EKG showed sinus arrhythmia with RBBB. CXR right midlung consolidation. CT chest performed showed RUL consolidation with volume loss and interstitial edema in the right lung with moderate right pleural effusion. Patient was started on Azithromycin and admitted for Pulmonary evaluation. Liver US was ordered for transaminitis which showed possible clot in the MPV and LPV and GB wall thickening with pericholecystic fluid and gallstone. He was started on Zosyn and Heparin drip as well. Vascular surgery consulted, CTA AP completed confirming portal vein thrombosis MPV into the LPV, recommended no surgical intervention, Hematology consulted and heparin drip transitioned to Eliquis on 09/30. Surgery consulted for possible cholecystitis. CTA AP showed a contracted gallbladder. Given his lack of symptoms, Zosyn discontinued and patient advised no acute surgical intervention and outpatient follow up. He underwent bronchoscopy with BAL on 09/29 where biopsies and cultures were obtained. He failed his home O2 eval on 09/30. A-team called on 09/30 for hypoxia, required BiPAP, CXR showing worsening consolidation in the left lung, as well as acute pulmonary edema. Was also tachycardic, A-fib RVR. Started on Cardizem d rip. Cardiology was consulted. Was started on IV Lasix now transition to p.o. Bumex. Patient has been delirious, now improving. Echocardiogram showed severe pulmonary hypertension otherwise normal LV size and systolic function. Pathology report came back positive for invasive poorly differentiated pulmonary adenocarcinoma. Oncology following. Needs further outpatient workup. Brain MRI did not show any metastatic disease. Outpatient PET pending. Patient seen and examined at bedside. Vital signs reviewed and stable. General: Nontoxic, no distress, appears at stated age, chronically ill-appearing Derm: Warm, dry Head: Atraumatic, normocephalic, symmetric Eyes: EOMI, no lid lag, anicteric sclera Mouth: No lip lesion, mucus membranes moist Cardiovascular: S1S2 reg, no murmur Lungs: Bilateral rhonchi, no accessory muscle use, supplemental oxygen Abdominal: Soft, nontender to palpation, no guarding, no appreciable organomegaly Ext: No gross muscle atrophy, no edema, no contractures Neuro: CN II-XI grossly intact, no focal neuro deficits Psych: Alert, oriented, appropriate affect A total of 36 minutes of time were spent preparing this complex discharge summary. Patient was discharged on 10/08/2023 at 1454. Plan - Discharge Summary New Discharge Prescriptions: New Apixaban [Eliquis Starter Pack (for VTE)] 5 - 10 mg PO DIRECTED 30 Days #1 each Fluticasone Propion/Salmeterol [Advair Hfa 230-21 Mcg Inhaler] 2 puff INHALATION BID #8 gm Bumetanide [BUMEX] 1 mg PO DAILY #90 tab predniSONE [Deltasone] See Rx Instructions .ROUTE .COMPLEX #25 tab Metoprolol Tartrate [Lopressor] 50 mg PO BID #90 tab Pantoprazole [Protonix] 40 mg PO AC-BRKFST #90 tab Spironolactone [Aldactone] 25 mg PO DAILY #90 tab Diltiazem Cd [Cardizem CD] 120 mg PO DAILY #90 cap Continue metFORMIN HCL ER [Glucophage XR] 1,000 mg PO BID Multivitamin [Men's Multi-Vitamin] 1 tab PO DAILY Finasteride [Proscar] 5 mg PO DAILY Doxazosin Mesylate [Cardura] 4 mg PO DAILY Aspirin 81 mg PO DAILY Albuterol Sulfate [Proair Hfa] 2 puff INHALATION RT-Q4H PRN PRN Reason: Shortness Of Breath buPROPion HCL [Wellbutrin XL] 300 mg PO DAILY L.acidoph,Paracasei, B.lactis [Probiotic] 1 cap PO DAILY traZODone HCL [Desyrel] 50 mg PO HS glipiZIDE [glipiZIDE ER] 10 mg PO DAILY Simvastatin [Zocor] 20 mg PO HS Dulaglutide [Trulicity] 1.5 mg SQ WE Discontinued Fenofibrate 160 mg PO DAILY Enalapril [Vasotec] 20 mg PO DAILY amLODIPine [Norvasc] 5 mg PO DAILY Discharge Medication List Albuterol Sulfate [Proair Hfa] 2 puff INHALATION RT-Q4H PRN 08/04/14 [History] Aspirin 81 mg PO DAILY 08/04/14 [History] Doxazosin Mesylate [Cardura] 4 mg PO DAILY 08/04/14 [History] Finasteride [Proscar] 5 mg PO DAILY 08/04/14 [History] Multivitamin [Men's Multi-Vitamin] 1 tab PO DAILY 08/04/14 [History] metFORMIN HCL ER [Glucophage XR] 1,000 mg PO BID 08/04/14 [History] buPROPion HCL [Wellbutrin XL] 300 mg PO DAILY 05/10/15 [History] L.acidoph,Paracasei, B.lactis [Probiotic] 1 cap PO DAILY 01/05/23 [History] Dulaglutide [Trulicity] 1.5 mg SQ WE 09/28/23 [History] Simvastatin [Zocor] 20 mg PO HS 09/28/23 [History] glipiZIDE [glipiZIDE ER] 10 mg PO DAILY 09/28/23 [History] traZODone HCL [Desyrel] 50 mg PO HS 09/28/23 [History] Apixaban [Eliquis Starter Pack (for VTE)] 5 - 10 mg PO DIRECTED 30 Days #1 each 09/30/23 [Rx] Bumetanide [BUMEX] 1 mg PO DAILY #90 tab 10/08/23 [Rx] Diltiazem Cd [Cardizem CD] 120 mg PO DAILY #90 cap 10/08/23 [Rx] Fluticasone Propion/Salmeterol [Advair Hfa 230-21 Mcg Inhaler] 2 puff INHALATION BID #8 gm 10/08/23 [Rx] Metoprolol Tartrate [Lopressor] 50 mg PO BID #90 tab 10/08/23 [Rx] Pantoprazole [Protonix] 40 mg PO AC-BRKFST #90 tab 10/08/23 [Rx] Spironolactone [Aldactone] 25 mg PO DAILY #90 tab 10/08/23 [Rx] predniSONE [Deltasone] See Rx Instructions .ROUTE .COMPLEX #25 tab 10/08/23 [Rx] Follow up Appointment(s)/Referral(s): Edmond Castelan MD [Primary Care Provider] - 1-2 days Jessica Morgan MD [STAFF PHYSICIAN] - 10/26/23 3:45 pm [facility] [NON-STAFF] - As Needed (will deliver portable to room, and setup deliver for home 02. Any questions please call agency. ) Garret Heard DO [Doctor of Osteopathic Medicine] - As Needed Ivan Martines DO [Doctor of Osteopathic Medicine] - 1 Week Alex Hernandez MD [Medical Doctor] - 1 Week Patient Instructions/Handouts: COPD (Chronic Obstructive Pulmonary Disease) (DC), Lung Cancer (DC) Activity/Diet/Wound Care/Special Instructions: Please see your oncologist for further treatment options, and also your PCP and specialists. Discharge Disposition: HOME WITH HOME HEALTH SERVICES
[2023-10-08 16:21] VITALS: PULSE 62
[2023-10-31 13:07] LABS: Nucleated Cells, Body Fluid 350 /UL
== END 2023-10-08 16:51 | disposition home health service (06) | DRG 166 ==
LOC: EC 16:29 → 6NMEDSUR 20:33 → OBSVTOIN 20:34 → 6NMEDSUR 21:09 → 2SICU 10-02 03:25 → 3SCARD 10-07 16:37
PROVIDERS: ADMIT Internal Medicine; ATTEND Internal Medicine
PROC: 0BD58ZX Extraction of Right Middle Lobe Bronchus, Via Natural or Artificial Opening Endoscopic, Diagnostic (ICD-10-PCS; principal; 2023-09-30 15:00)
PROC: 0BBD8ZX Excision of Right Middle Lung Lobe, Via Natural or Artificial Opening Endoscopic, Diagnostic (ICD-10-PCS; principal; 2023-09-30 15:00)
PROC: 0BBC8ZX Excision of Right Upper Lung Lobe, Via Natural or Artificial Opening Endoscopic, Diagnostic (ICD-10-PCS; principal; 2023-09-30 15:00)
PROC: 0B9D8ZZ Drainage of Right Middle Lung Lobe, Via Natural or Artificial Opening Endoscopic (ICD-10-PCS; principal; 2023-09-30 15:00)
PROC: 5A09357 Assistance with Respiratory Ventilation, Less than 24 Consecutive Hours, Continuous Positive Airway Pressure (ICD-10-PCS; 2023-10-02)
DX: C34.01 Malignant neoplasm of right main bronchus (principal); I81 Portal vein thrombosis; J96.01 Acute respiratory failure with hypoxia; J18.9 Pneumonia, unspecified organism; D68.9 Coagulation defect, unspecified; E87.1 Hypo-osmolality and hyponatremia; F05 Delirium due to known physiological condition; I50.30 Unspecified diastolic (congestive) heart failure; J44.0 Chronic obstructive pulmonary disease with (acute) lower respiratory infection; J44.1 Chronic obstructive pulmonary disease with (acute) exacerbation; K80.10 Calculus of gallbladder with chronic cholecystitis without obstruction; D64.9 Anemia, unspecified; F32.A Depression, unspecified; E11.65 Type 2 diabetes mellitus with hyperglycemia; T38.0X5A Adverse effect of glucocorticoids and synthetic analogues, initial encounter; I27.20 Pulmonary hypertension, unspecified; I11.0 Hypertensive heart disease with heart failure; E78.5 Hyperlipidemia, unspecified; E83.42 Hypomagnesemia; Z87.891 Personal history of nicotine dependence; F41.9 Anxiety disorder, unspecified; I48.91 Unspecified atrial fibrillation; I45.10 Unspecified right bundle-branch block; J20.9 Acute bronchitis, unspecified; N40.0 Benign prostatic hyperplasia without lower urinary tract symptoms; Z79.01 Long term (current) use of anticoagulants; Z79.4 Long term (current) use of insulin; Z79.82 Long term (current) use of aspirin; Z79.84 Long term (current) use of oral hypoglycemic drugs; Z79.899 Other long term (current) drug therapy; Z85.828 Personal history of other malignant neoplasm of skin; R63.4 Abnormal weight loss; Z68.26 Body mass index [BMI] 26.0-26.9, adult; Z28.310 Unvaccinated for COVID-19; K21.9 Gastro-esophageal reflux disease without esophagitis; M19.90 Unspecified osteoarthritis, unspecified site
CPT/HCPCS: 31623; 31624; 31625; 31629; 36415; 36600; 70030; 70553; 71045; 71046; 71260; 74174; 76604; 76705; 80048; 80053; 82272; 82565; 82805; 83036; 83735; 83880; 84100; 84145; 84443; 84484; 84520; 85025; 85027; 85610; 85730; 87070; 87205; 88104; 88108; 88305; 88341; 88342; 89050; 93005; 93306; 94640; 94660; 94760; 99285

== ENCOUNTER 2023-10-28 13:13 | Inpatient (IN) | payer MEDICARE ==
[~2023-10-28 13:13] MED LIST changes: -LACTATED RINGERS 1,000 ML IV SCH; +SODIUM CHLORIDE 0.9% 1,000 ML BAG ONE; +fentaNYL (PF) 50 MCG/ML 2 ML AMP ONE; +metroNIDAZOLE-NS PMX 500 MG/100 ML BAG ONE
[2023-10-28] MEDS ORDERED: MORPHINE SULFATE 4 MG/ML SYRINGE ONE (13:43)
[2023-10-28] MEDS ORDERED: ONDANSETRON 4 MG/2 ML VIAL ONE (13:43)
[2023-10-29] MEDS ORDERED: LORazepam 2 MG/ML INJ ONE (05:12)
--- NOTE | 2023-11-21 09:13 | XR ---
Patient: Barron Everett G JR Ordering Physician: Unknown, Unknown ID: [id number] Phone, Pager: Phone: N/A Pager: N/A : 1955 Age/Gender: 68Y, M Primary Location: N/A Procedure: 1v cxr Study Date: 10/28/2023 1:07:27 PM EXAMINATION TYPE: XR chest 1V DATE OF EXAM: 10/28/2023 COMPARISON: 10/06/2023 HISTORY: 68 year-old male altered mental status, confusion TECHNIQUE: Single frontal view of the chest is obtained. FINDINGS: Heart mildly enlarged. Patchy and confluent bilateral airspace disease, greatest within th e right upper and midlung. Fairly stable. No sizable pleural effusion. IMPRESSION: Mild cardiomegaly and multifocal patchy and confluent airspace disease. Fairly similar t o prior exam. Dense right perihilar opacification is similar as well.
== END 2023-10-29 08:45 | disposition expired | DRG 951 ==
LOC: 4SSUR 13:13
PROVIDERS: ADMIT Student in an Organized Health Care Education/Training Program; ATTEND Student in an Organized Health Care Education/Training Program
DX: Z51.5 Encounter for palliative care (principal); C34.90 Malignant neoplasm of unspecified part of unspecified bronchus or lung; C78.7 Secondary malignant neoplasm of liver and intrahepatic bile duct; I48.92 Unspecified atrial flutter; I95.9 Hypotension, unspecified; I48.91 Unspecified atrial fibrillation; I10 Essential (primary) hypertension; E78.5 Hyperlipidemia, unspecified; E11.9 Type 2 diabetes mellitus without complications; Z79.85 Long-term (current) use of injectable non-insulin antidiabetic drugs; Z79.01 Long term (current) use of anticoagulants; Z79.899 Other long term (current) drug therapy; Z66 Do not resuscitate
CPT/HCPCS: 93005